=== PATIENT | male | born 1965 | race Caucasian/White ===

== ENCOUNTER 2016-06-23 05:22 | Inpatient (IN) | payer MEDICARE, OTHER ==
[2016-06-23 05:38] LABS: Glucose,Whole Blood 94 mg/dL (75-99)
[2016-06-23] MEDS ORDERED: IV VANCOMYCIN PER PHARMACY 1 EACH MISC MISCELLANE PRN (05:39)
[2016-06-23] MEDS ORDERED: LEVOFLOXACIN 750MG-D5W PMX 750 MG in DEXTROSE/WATER 1 150ML.BAG IVPB STA (05:41)
--- NOTE | 2016-06-23 05:44 | ED ---
General Adult HPI - General Chief complaint: Extremity Problem,Nontraumatic Stated complaint: bleeding foot Time Seen by Provider: 06/23/16 05:25 Source: patient, RN notes reviewed Mode of arrival: EMS Limitations: no limitations - History of Present Illness Initial comments: Patient is a pleasant 51-year-old male presenting to the emergency Department with concerns for possible foot infection. Patient first noticed this just a week ago. No history of similar symptoms previously. Patient is diabetic. Patient does have severe renal failure however has refused dialysis. Patient was previously placed on hospice for renal failure however there has been some improvement of his kidney function since that time. Patient denies any discomfort. Patient has noticed some bleeding and an older. - Related Data Home Medications Medication Instructions Recorded Confirmed Calcium Acetate [PhosLo] 2,001 mg PO TID 03/14/14 05/23/15 Thyroid,Pork [[place] Thyroid] 60 mg PO DAILY 03/14/14 05/23/15 Carvedilol [Coreg*] 25 mg PO BID 07/11/14 05/23/15 traMADol HCl [Ultram] 50 mg PO Q4H PRN 07/11/14 05/23/15 Acetaminophen Tab [Tylenol] 650 mg PO Q4H PRN 05/23/15 05/23/15 Ergocalciferol [Vitamin D2 100,000 unit PO RAHMAN 05/23/15 05/23/15 (DRISDOL)] Febuxostat [Uloric] 40 mg PO HS 05/23/15 05/23/15 Furosemide [Lasix] 80 mg PO BID 05/23/15 05/23/15 Micro-Guard 2% Powder 1 applic TOPICAL BID PRN 05/23/15 05/23/15 Na Phos,M-B/Na Phos,Di-Ba [Fleet 133 ml RECTAL ONCE PRN 05/23/15 05/23/15 Adult] Thyroid,Pork [[place] Thyroid] 15 mg PO DAILY 05/23/15 05/23/15 Previous Rx's Medication Instructions Recorded traMADol HCl [Ultram] 50 mg PO Q4H PRN #30 tab 06/02/15 Allergies Allergy/AdvReac Type Severity Reaction Status Date / Time No Known Allergies Allergy Verified 05/23/15 10:58 Review of Systems ROS Statement: Those systems with pertinent positive or pertinent negative responses have been documented in the HPI. ROS Other: All systems not noted in ROS Statement are negative. Constitutional: Denies: fever, chills Eyes: Denies: eye pain ENT: Denies: ear pain Respiratory: Denies: cough, dyspnea Cardiovascular: Denies: chest pain Endocrine: Denies: fatigue Gastrointestinal: Denies: abdominal pain Genitourinary: Denies: dysuria Musculoskeletal: Denies: back pain Skin: Reports: rash Neurological: Denies: weakness Past Medical History Past Medical History: Heart Failure, Diabetes Mellitus, Hypertension Additional Past Medical History / Comment(s): history of dialysis for CHF, chronic kidney disease stage 4. PT STATED HE IS DIET CONTROLLED DIABETIC NO MEDS BUT CHECKS BS DAILY History of Any Multi-Drug Resistant Organisms: None Reported Past Surgical History: No Surgical Hx Reported Past Anesthesia/Blood Transfusion Reactions: No Reported Reaction Past Psychological History: No Psychological Hx Reported Smoking Status: Never smoker Past Alcohol Use History: Occasional Past Drug Use History: None Reported - Past Family History Father Family Medical History: Cancer Additional Family Medical History / Comment(s): NON HODGKINS LYNPHOMA Mother Family Medical History: Cancer Additional Family Medical History / Comment(s): BREAST CANCER SURVIVOR General Exam Limitations: no limitations General appearance: alert, in no apparent distress, obese Head exam: Present: atraumatic, normocephalic Eye exam: Present: normal appearance, PERRL ENT exam: Present: normal oropharynx Neck exam: Present: normal inspection Respiratory exam: Present: normal lung sounds bilaterally Cardiovascular Exam: Present: regular rate, normal rhythm GI/Abdominal exam: Present: soft. Absent: tenderness Extremities exam: Present: other (Left heel with large necrotic stage IV ulcer with bone visible. There is foul odor. Ulcer is approximately 9 cm. There is black necrotic tissue. Refill 3 seconds bilateral distally. Decreased pedal pulses bilateral) Neurological exam: Present: alert Psychiatric exam: Present: normal affect, normal mood Skin exam: Present: rash (Necrotic foot ulcer) Course Vital Signs 06/23/16 06/23/16 05:23 06:16 Temperature 98.5 F Pulse Rate 99 87 Respiratory 20 18 Rate Blood Pressure 216/100 138/85 O2 Sat by Pulse 99 98 Oximetry - Reevaluation(s) Reevaluation #1: 06/23/16 05:44 Patient states he has seen Dr. Broderick with infectious disease previously and he' ll be placed on consult. Medical Decision Making - Medical Decision Making Patient does meet sepsis criteria. Case was discussed in detail with Dr. parson, who will admit for Dr. Lentz. Admission orders written. IV antibiotics started. Consult placed for infectious disease and nephrology - Lab Data Result diagrams: 06/23/16 05:32 Lab Results 06/23/16 06/23/16 06/23/16 Range/Units 05:32 05:32 05:32 PT 12.8 H (9.0-12.0) sec INR 1.3 (<1.1) APTT 32.5 H (22.0-30.0) sec Sodium 138 (137-145) mmol/L Potassium 4.1 (3.5-5.1) mmol/L Chloride 98 (98-107) mmol/L Carbon Dioxide 16 L (22-30) mmol/L Anion Gap 24 mmol/L BUN 119 H* (9-20) mg/dL Creatinine 6.30 H* (0.66-1.25) mg/dL Est GFR (MDRD) Af Amer 12 (>60 ml/min/1.73 sqM) Est GFR (MDRD) Non-Af 9 (>60 ml/min/1.73 sqM) Glucose 107 H (74-99) mg/dL POC Glucose (mg/dL) (75-99) mg/dL POC Glu Jewel Hole Cornerer ID Plasma Lactic Acid Lm 2.1 H (0.7-2.0) mmol/L Calcium 8.6 (8.4-10.2) mg/dL Total Bilirubin 0.8 (0.2-1.3) mg/dL AST 22 (17-59) U/L ALT 31 (21-72) U/L Alkaline Phosphatase 131 H (38-126) U/L Total Protein 7.5 (6.3-8.2) g/dL Albumin 3.4 L (3.5-5.0) g/dL 06/23/16 Range/Units 05:34 PT (9.0-12.0) sec INR (<1.1) APTT (22.0-30.0) sec Sodium (137-145) mmol/L Potassium (3.5-5.1) mmol/L Chloride (98-107) mmol/L Carbon Dioxide (22-30) mmol/L Anion Gap mmol/L BUN (9-20) mg/dL Creatinine (0.66-1.25) mg/dL Est GFR (MDRD) Af Amer (>60 ml/min/1.73 sqM) Est GFR (MDRD) Non-Af (>60 ml/min/1.73 sqM) Glucose (74-99) mg/dL POC Glucose (mg/dL) 94 (75-99) mg/dL POC Glu Jewel Hole Cornerer ID Yuridia [place] Plasma Lactic Acid Lm (0.7-2.0) mmol/L Calcium (8.4-10.2) mg/dL Total Bilirubin (0.2-1.3) mg/dL AST (17-59) U/L ALT (21-72) U/L Alkaline Phosphatase (38-126) U/L Total Protein (6.3-8.2) g/dL Albumin (3.5-5.0) g/dL - Radiology Data Radiology results: image reviewed (X-ray left foot shows severe degeneration especially of the calcaneus with demineralization and appearance of fracture) Critical Care Time Critical Care Time: Yes Total Critical Care Time: 34 Disposition Clinical Impression: Chronic renal failure, Severe sepsis, Diabetes mellitus with foot ulcer and gangrene Disposition: ADMITTED IP TO THIS HOSP Condition: Serious Referrals: Denver Lentz DO [Primary Care Provider] - 1-2 days
[2016-06-23] MEDS: SODIUM CHLORIDE 0.9% 500 ML IV SCH ×2 (05:48→06:48)
[2016-06-23] MEDS ORDERED: VANCOMYCIN 2,500 MG in SODIUM CHLORIDE 0.9% 500 ML IVPB ONE (06:00)
[2016-06-23 06:01] LABS: Calcium 8.6 mg/dL (8.4-10.2); Potassium 4.1 mmol/L (3.5-5.1); Total Bilirubin 0.8 mg/dL (0.2-1.3); Total Protein 7.5 g/dL (6.3-8.2)
[2016-06-23 06:02] LABS: INR 1.3 (<1.1); Partial Thromboplastin Time 32.5 sec (22.0-30.0); Prothrombin Time 12.8 sec (9.0-12.0)
[2016-06-23] MEDS ORDERED: NALOXONE 0.4 MG/ML 1 ML VIAL IV PRN (06:19)
[2016-06-23 06:25] LABS: Basophils # (A) 0.1 k/uL (0-0.2); Basophils % (A) 1 %; CH 30.1; CHCM 32.8; Eosinophils # (A) 0.3 k/uL (0-0.7); Eosinophils % (A) 2 %; HCT 30.3 % (39.0-53.0); HDW 3.14; HGB 9.6 gm/dL (13.0-17.5); Luc % (Auto) 1; Lymphocytes # (A) 0.7 k/uL (1.0-4.8); Lymphocytes % (A) 5 %; MCH 29.1 pg (25.0-35.0); MCHC 31.6 g/dL (31.0-37.0); MCV 92.2 fL (80.0-100.0); Mean Platelet Volume 7.1; Monocytes # (A) 0.9 k/uL (0-1.0); Monocytes % (A) 6 %; Neutrophils # (A) 12.4 k/uL (1.3-7.7); Neutrophils % (A) 85 %; RBC 3.28 m/uL (4.30-5.90); RDW 14.7 % (11.5-15.5); WBC 14.6 k/uL (3.8-10.6); WBC (Perox) 15.24
--- NOTE | 2016-06-23 06:29 | XR ---
EXAMINATION TYPE: XR foot complete LT DATE OF EXAM: 06/23/2016 6:01 AM CLINICAL HISTORY: Left foot infection. TECHNIQUE: Frontal and lateral images of the left forearm are obtained. COMPARISON: None. FINDINGS: There is evidence of comminuted displaced horizontal fracture of posterior portion of left calcaneum. There is probably open wound in the posterior aspect of this fracture in the posterior aspect of a l eft calcaneum. Underlying inflammatory process of soft tissues cannot be excluded as there are small gas bubbles in the soft tissues in the inferior aspect of left calcaneum posteriorly. Prominent plantar calcaneal spur is noted. Vascular calcifications are noted. There is generalized osteopenia. Mild to moderate arthritic changes are noted in the left foot. No definite osteomyelitis changes are suggested in the left foot including left calcaneum. There is generalized soft tissue edema around the left foot. IMPRESSION: 1. There is evidence of displaced fracture of posterior aspect of left calcaneum superiorly with prob able open wound with possible inflammatory process in the soft tissues. Small gas bubbles are noted i n the inferior posterior aspect and small abscess formation cannot be excluded. 2. No definite acute osteomyelitis changes are noted in the left foot at present. ICD 10 NO FRACTURE, INITIAL EVALUATION
[2016-06-23] MEDS ORDERED: SODIUM CHLORIDE 0.9% 1,000 ML IV SCH (06:30)
[2016-06-23 07:26] LABS: Glucose,Whole Blood 104 mg/dL (75-99)
[2016-06-23 11:29] LABS: Glucose,Whole Blood 97 mg/dL (75-99)
[2016-06-23] MEDS: AMPICILLIN-SULBACTAM 3 GM in SODIUM CHLORIDE 0.9% 100 ML IVPB SCH ×2 (13:21→20:40)
[2016-06-23] MEDS ORDERED: SODIUM BICARB 8.4% 50 ML SYR (1 MEQ/ML) IV STA (13:44)
[2016-06-23 14:07] VITALS: BMI 51.5
--- NOTE | 2016-06-23 14:25 | P.NPCON ---
History of Present Illness - Reason for Consult chronic renal failure, end stage renal disease - Chief Complaint CKD - History of Present Illness Reason for consultation: Chronic kidney disease stage V History of present illness: Patient is a 51-year-old male seen in renal consultation for chronic kidney disease. Patient has chronic kidney disease stage V secondary to nephrosclerosis. Patient has refused any forms of renal replacement therapy. He presented to the hospital with a foot ulcer. Patient noted that it was draining with the followed her he subsequently came to the hospital for further care. Foot x-ray did reveal a calcaneal fracture with a questionable abscess. He is currently receiving IV hydration. He admits to good urine output. Denies any hematuria or dysuria. He is currently maintained on IV antibiotics. No vomiting or diarrhea. Denies regular use of NSAIDs. Vital signs are stable. General: The patient appeared well nourished and normally developed. HEENT: Head exam is unremarkable. Neck is without jugular venous distension. LUNGS: Lungs are clear to auscultation and percussion. Breath sounds decreased. HEART: Rate and Rhythm are regular. First and second heart sounds normal. No murmurs, rubs or gallops. ABDOMEN: Abdominal exam reveals normal bowel sounds. Non-tender and non- distended. No evidence of peritonitis. EXTREMITITES: No clubbing, cyanosis, or edema. Wound dressing clean and dry. Past Medical History Past Medical History: Diabetes Mellitus, Eye Disorder, Hypertension Additional Past Medical History / Comment(s): chronic kidney disease stage 4- past hemodialysis for about 45 days-now refusing, NIDDM type II diet controlled , cardiomegaly, L pleural effusions with thoracentesis, bone mineral dx, anemia , hypothyroidism, L eye astigmatism, R femur fx as child with body cast. History of Any Multi-Drug Resistant Organisms: None Reported Past Surgical History: No Surgical Hx Reported Additional Past Surgical History / Comment(s): L sided thoracentesis x 3. Past Anesthesia/Blood Transfusion Reactions: No Reported Reaction Additional Past Anesthesia/Blood Transfusion Reaction / Comment(s): Pt has never had anesthesia. Past Psychological History: No Psychological Hx Reported Additional Psychological History / Comment(s): Pt resides alone. He can stand and pivot to wheelchair. He lives in [facility]. He uses the bus to get places. Smoking Status: Never smoker Past Alcohol Use History: Occasional Past Drug Use History: None Reported - Past Family History Father Family Medical History: Cancer Additional Family Medical History / Comment(s): NON HODGKINS LYNPHOMA. Father at the age of 50 from chemo treatment to get ready for bone marrow transplant. Mother Family Medical History: Cancer Additional Family Medical History / Comment(s): BREAST CANCER SURVIVOR. Medications and Allergies Home Medications Medication Instructions Recorded Confirmed Type Calcium Acetate [PhosLo] 667 mg PO TID 03/14/14 06/23/16 History Thyroid,Pork [[place] Thyroid] 60 mg PO DAILY 03/14/14 06/23/16 History Carvedilol [Coreg*] 25 mg PO BID 07/11/14 06/23/16 History Febuxostat [Uloric] 40 mg PO HS 05/23/15 06/23/16 History Furosemide [Lasix] 80 mg PO BID 05/23/15 06/23/16 History Thyroid,Pork [[place] Thyroid] 15 mg PO DAILY 05/23/15 06/23/16 History Metolazone [Zaroxolyn] 5 mg PO Q48H 06/23/16 06/23/16 History amLODIPine BESYLATE [Norvasc] 5 mg PO DAILY 06/23/16 06/23/16 History Allergies Allergy/AdvReac Type Severity Reaction Status Date / Time No Known Allergies Allergy Verified 06/23/16 07:06 Physical Exam Vitals: Vital Signs Temp Pulse Pulse Resp BP BP Pulse Ox 06/23/16 07:33 99.0 F 85 14 142/80 95 06/23/16 07:02 98.6 F 85 18 135/85 97 Intake and Output 06/22/16 06/23/16 06/23/16 22:59 06:59 14:59 Other: Weight 172.365 kg Patient Weight 06/24/16 06:59 Weight 172.365 kg Results - Lab Results Most recent lab results Calcium 8.6 mg/dL (8.4-10.2) 06/23/16 05:32 06/23/16 06:15 06/23/16 05:32 Assessment and Plan Plan: Assessment: #1. Chronic kidney disease stage V secondary to nephrosclerosis. #2. Foot ulceration. #3. Metabolic acidosis secondary to chronic kidney disease. #4. Anemia. Rule out iron deficiency. #5. Hypertension with chronic kidney disease. Controlled. Plan: I will decrease the rate of fluids to 75 mL an hour. 2 A of sodium bicarbonate IV push. Start oral sodium bicarbonate supplementation. Check a phosphorus level. Antibiotics per infectious disease recommendations. Check iron studies. Avoid nephrotoxic agents and hypotensive episodes. I again discussed the options for renal replacement therapy with the patient. He still wishes for no renal replacement therapy at this time. Thank you for the consultation. I will continue to follow the patient with you during his hospital stay.
[2016-06-23 14:33] LABS: Appearance,Urine Clear (Clear); Bilirubin,Urine Negative (Negative); Glucose,Urine (UA) Trace (Negative); Ketones,Urine Trace (Negative); Leukocyte Esterase,Urine Negative (Negative); Mucus,Urine Rare /hpf; Nitrite,Urine Negative (Negative); PH, Urine 5.5 (5.0-8.0); Particle Count 5004; Protein,Urine 2+ (Negative); RBC,Urine 2 /hpf (0-5); Specific Gravity,Urine 1.008 (1.001-1.035); Squamous Epithelial Cell,Urine 1 /hpf (0-4); UA Billing (MACRO vs. MICRO) MICRO; Urobilinogen,Urine <2.0 mg/dL (<2.0); WBC,Urine 3 /hpf (0-5)
[2016-06-23] MEDS: SODIUM CHLORIDE 0.9% 1,000 ML IV SCH (14:56)
[2016-06-23] MEDS ORDERED: amLODIPine 5 MG TAB PO SCH (15:45)
[2016-06-23] MEDS ORDERED: THYROID PORK 15 MG PO SCH (15:45)
[2016-06-23 17:02] LABS: Glucose,Whole Blood 140 mg/dL (75-99)
[2016-06-23] MEDS: THYROID, PORK 30 MG TAB PO SCH (17:59)
[2016-06-23] MEDS: CALCIUM ACETATE 667 MG CAP PO SCH ×2 (17:59→22:24)
[2016-06-23] MEDS: CARVEDILOL 12.5 MG TAB PO SCH (17:59)
--- NOTE | 2016-06-23 20:07 | HP ---
DATE OF ADMISSION: 06/23/2016 PRESENTING COMPLAINT: Heel abscess. HISTORY OF PRESENTING COMPLAINT: This is a 51-year-old patient of Dr. Lentz whose chronic stable medical conditions include congestive heart failure with diastolic dysfunction, hypertensive heart disease, ichthyosis, chronic kidney disease, stage IV; does not want renal replacement therapy; secondary hyperparathyroidism, diet-controlled diabetic. Patient says that about a week there was a ( ) abscess that burst in his left heel and has been draining. That is when patient decided to come in. Patient has decreased sensation in his lower extremities. REVIEW OF SYSTEMS: CONSTITUTIONAL: Tired. HEENT: None. RESPIRATORY: None. CARDIOVASCULAR: None. GASTROINTESTINAL: None. GENITOURINARY: None. MUSCULOSKELETAL: A reported calcaneal fracture in the ER. DERMATOLOGICAL: As above. LYMPHATICS: None. PSYCHIATRY: None. NEUROLOGICAL: Decreased sensation in the legs. PAST HISTORY: 1. Congestive heart failure with diastolic dysfunction. 2. Hypertensive heart disease. 3. Ichthyosis. 4. Chronic kidney disease, stage IV. 5. Secondary hyperparathyroidism. Patient did take hemodialysis for about 45 days in the past. PAST SURGICAL HISTORY: Left-sided thoracentesis. SOCIAL HISTORY: Lives alone. He can pivot to a wheelchair. Lives at [facility]. No smoking. alcohol occasionally. FAMILY HISTORY: Non-Hodgkin's lymphoma. HOME MEDICATIONS: 1. Norvasc 5 mg p.o. daily. 2. Zaroxolyn 5 mg p.o. q.48 hours. 3. Uloric 40 mg p.o. at bedtime. 4. PhosLo 660 mg p.o. t.i.d. 5. [place] Thyroid 60 mg p.o. daily. 6. Lasix 80 mg b.i.d. 7. Ultram 50 mg p.o. q.4 p.r.n. 8. [place] Thyroid 15 mg p.o. daily. 9. Coreg 25 mg p.o. b.i.d. ALLERGIES: NONE. On examination, temperature 98.5, pulse 99, respiration 20, blood pressure 216/100, repeat 138/85. Pulse ox 98% on room air. GENERAL APPEARANCE: Morbidly obese; BMI of 51.5. Lying in bed, not in distress. EYES: Pupils equal. Conjunctivae normal. HEENT: External appearance of nose and ears normal. Oral cavity normal. NECK: JVD not raised. Mass with palpable. RESPIRATORY: Effort normal. Lungs are clear. CARDIOVASCULAR: First and second sounds normal. Non-pitting edema. ABDOMEN: Distended, soft. Liver and spleen not palpable. LYMPHATIC: No lymph node palpable in neck or axillae. PSYCHIATRY: Alert and oriented x3. Mood and affect normal. NEUROLOGICAL: Decreased sensation in the feet. MUSCULOSKELETAL: Patient has an abscess on the left heel. INVESTIGATIONS: White count 14.6, hemoglobin 9.6. Potassium 4.1. BUN 109, creatinine 6.30. Accu-Cheks 107, 104. X-ray shows a possible calcaneal fracture. ASSESSMENT: 1. Abscess of the left heel secondary to decreased sensation from peripheral neuropathy. 2. Possible left calcaneal fracture; this could well be osteomyelitis. 3. Stage V kidney disease secondary to nephrosclerosis. 4. Morbid obesity; body mass index of 51.5. 5. Chronic congestive heart failure from diastolic dysfunction. 6. Hypertensive heart disease. 7. Secondary hyperparathyroidism. PLAN: Consultations to ID and Vascular Surgery have been done. Home medication are resumed. Will hold off patient's diuretics for right now. Given the swelling in the lower extremity, will increase the dose of beta michaela and discontinue Norvasc, as this may be causing further swelling in the lower extremity. Patient also will be given antibiotics, bicarb. Overall prognosis is guarded.
[2016-06-23] MEDS: ALLOPURINOL 100 MG TAB PO SCH (20:40)
[2016-06-23] MEDS: SODIUM BICARBONATE TAB 650 MG TAB PO SCH (20:41)
--- NOTE | 2016-06-23 20:43 | CONS ---
DATE OF CONSULTATION: 06/23/2016 REASON FOR CONSULTATION: Left heel wound and ulcer. HISTORY OF PRESENT ILLNESS: The patient is a 51-year-old morbidly obese male with a past medical history significant for renal insufficiency for which the patient was on dialysis for a while. However, the patient subsequently refused any further dialysis. He also has history of diabetes mellitus, presenting to the [facility] ER with chief complaints of wound to his left heel area. The patient says has been going on for about a week. He noticed it when he took his socks off. He noticed a wound in that area that was gradually worse. Patient complaining of foul smelling to the area. The patient did have neuropathy. Did not have significant pain to it. The patient denies any high-grade fever, rigors or chills. Subsequently, the patient has been evaluated by the ER physician. The patient noticed to have a foul smelling wound to the left heel area. He did have x-rays of the heel which did show evidence of the posterior aspect of the left calcaneal superiorly with palpable open wound, possible for osteo . The patient did receive a dose of vancomycin. He was given, started on Levaquin. I was asked to see the patient for further recommendation regarding antibiotic therapy. REVIEW OF SYSTEMS: CONSTITUTIONAL: Positive for weakness. Denies any high grade fever. EYES: No complaint. ENT: No complaint. RESPIRATORY: No complaint. CARDIOVASCULAR: No complaint. GENITOURINARY: No complaint. GASTROINTESTINAL: No complaint. MUSCULOSKELETAL: As per HPI. INTEGUMENTARY: As per HPI. PSYCHOLOGIC: No complaint. ENDOCRINE: No complaint. NEUROLOGICAL: No complaint. PAST MEDICAL HISTORY: Diabetes mellitus, hypertension, renal insufficiency. PAST MEDICAL HISTORY: Left-sided thoracocentesis times three. No other major surgery. SOCIAL HISTORY: Denies smoking, drinking, or drug use. FAMILY HISTORY: Father with history of non-Hodgkin lymphoma. Mother with history of breast cancer. Allergies: No known drug allergies. MEDICATIONS: Currently include the patient is on: 1. Tylenol. 2. Zyloprim. 3. PhosLo. 4. Coreg. 5. Narcan. 6. Ultram. On examination, blood pressure is 142/80 with a pulse of 85, temperature 99. He is 95% on room air. General description is a middle-age male lying in bed in no distress. HEENT pallor, no scleral icterus. Oral mucous membrane is dry. NECK: Trachea is central. No thyromegaly. LUNGS: Unlabored breathing. Clear to auscultation anteriorly. HEART: S1, S2 regular rate and rhythm. ABDOMEN: Soft. No tenderness. EXTREMITIES: No edema of the feet. Examination of the left heel did have a significantly foul smelling necrotic wound with some foul smelling drainage. Minimal surrounding erythema. Examination of skin: No rash or mass palpable. NEUROLOGICAL: The patient is awake, alert, oriented x3. Mood and affect normal. LABS: Hemoglobin 9.6, white count of 14.6 with a BUN of 119, creatinine 6.30. Liver enzymes are normal. X-ray report as mentioned above. DIAGNOSTIC IMPRESSION AND PLAN: Patient with left heel wound with likely underlying osteomyelitis in a patient who did have a history of diabetes, more likely polymicrobial infection including a gram positive skin timo as well as gram-negative pathogen. PLAN: 1. Discontinue the vancomycin as risk of nephrotoxicity. 2. Discontinue Levaquin. 3. Start the patient on Teflaro. 4. The patient needs to have a vascular surgery evaluation for surgical debridement of the wound and deep cultures with both aerobic and anaerobic. 5. Will follow up on the clinical condition and cultures to further adjust the medication if needed. Thank you for this consultation. We will follow this patient along with you. TOVA
[2016-06-23 21:21] LABS: Glucose,Whole Blood 156 mg/dL (75-99)
[2016-06-24] MEDS: SODIUM CHLORIDE 0.9% 1,000 ML IV SCH ×2 (04:06→11:31)
[2016-06-24] MEDS: THYROID, PORK 30 MG TAB PO SCH (05:45)
[2016-06-24 07:19] LABS: Glucose,Whole Blood 116 mg/dL (75-99)
[2016-06-24] MEDS: AMPICILLIN-SULBACTAM 3 GM in SODIUM CHLORIDE 0.9% 100 ML IVPB SCH ×2 (07:54→20:55)
[2016-06-24] MEDS: CARVEDILOL 12.5 MG TAB PO SCH ×2 (07:54→16:20)
[2016-06-24] MEDS: CALCIUM ACETATE 667 MG CAP PO SCH ×3 (07:54→20:59)
[2016-06-24] MEDS: SODIUM BICARBONATE TAB 650 MG TAB PO SCH ×2 (07:55→20:57)
[2016-06-24] MEDS ORDERED: LEVOFLOXACIN 750MG-D5W PMX 750 MG in DEXTROSE/WATER 1 150ML.BAG IVPB SCH (09:00)
--- NOTE | 2016-06-24 10:57 | P.PN ---
Subjective Patient is seen in follow-up for chronic kidney disease stage V. Patient is currently being treated with IV antibiotics for a left heel wound. Admits to good urine output. Appetite is good. No vomiting or diarrhea. Denies any chest pain or shortness of breath. Vital signs are stable. General: The patient appeared well nourished and normally developed. HEENT: Head exam is unremarkable. Neck is without jugular venous distension. LUNGS: Lungs are clear to auscultation and percussion. Breath sounds decreased. HEART: Rate and Rhythm are regular. First and second heart sounds normal. No murmurs, rubs or gallops. ABDOMEN: Abdominal exam reveals normal bowel sounds. Non-tender and non- distended. No evidence of peritonitis. EXTREMITITES: No clubbing, cyanosis, or edema. Objective - Vital Signs Vital signs: Vital Signs Temp 97.5 F L 06/24/16 07:00 Pulse 75 06/24/16 07:00 Resp 18 06/24/16 07:00 BP 155/93 06/24/16 07:00 Pulse Ox 97 06/24/16 07:00 Intake & Output 06/23/16 06/24/16 06/24/16 18:59 06:59 18:59 Output Total 350 1400 Balance -350 -1400 Weight 172.365 kg Output: Urine 350 1400 - Labs CBC & Chem 7: 06/23/16 06:15 06/23/16 05:32 Labs: Abnormal Lab Results - Last 24 Hours (Table) 06/23/16 06/23/16 06/23/16 Range/Units 14:10 17:00 21:20 POC Glucose (mg/dL) 140 H 156 H (75-99) mg/dL Urine Protein 2+ H (Negative) Urine Glucose (UA) Trace H (Negative) Urine Ketones Trace H (Negative) Urine Blood Small H (Negative) Urine Mucus Rare H (None) /hpf 06/24/16 Range/Units 07:12 POC Glucose (mg/dL) 116 H (75-99) mg/dL Urine Protein (Negative) Urine Glucose (UA) (Negative) Urine Ketones (Negative) Urine Blood (Negative) Urine Mucus (None) /hpf Microbiology - Last 24 Hours (Table) 06/23/16 14:10 Urine Culture - Preliminary Urine,Clean Catch Assessment and Plan Plan: Assessment: #1. Chronic kidney disease stage V secondary to nephrosclerosis. #2. Foot ulceration. Wound culture positive for gram-negative as well as staph aureus. #3. Metabolic acidosis secondary to chronic kidney disease. #4. Anemia. Rule out iron deficiency. #5. Hypertension with chronic kidney disease. Controlled. #6. Hyperphosphatemia secondary to chronic kidney disease. Plan: However further decrease IV fluids to be run at 50 mL an hour. Maintain oral sodium bicarbonate supplementation. Check a phosphorus level. Antibiotics per infectious disease recommendations. Check iron studies. Avoid nephrotoxic agents and hypotensive episodes. Maintain PhosLo with meals. I again discussed the options for renal replacement therapy with the patient. He still wishes for no renal replacement therapy at this time.
[2016-06-24 12:08] LABS: Glucose,Whole Blood 132 mg/dL (75-99)
[2016-06-24] MEDS ORDERED: VANCOMYCIN 2,000 MG in SODIUM CHLORIDE 0.9% 500 ML IVPB ONE (13:00)
[2016-06-24 16:39] LABS: Glucose,Whole Blood 162 mg/dL (75-99)
--- NOTE | 2016-06-24 20:45 | PN ---
DATE OF SERVICE: 06/24/2016 REASON FOR FOLLOWUP: Left heel wound infection. INTERVAL HISTORY: The patient is afebrile. Denies any worsening pain to the left heel area. The patient denies having any chest pain or shortness of breath or cough. No abdominal pain. No diarrhea. Awaiting vascular surgery evaluation. On examination, blood pressure 149/91 with a pulse of 72, temperature 98.4. He is 97% on room air. General description is a middle-age male up in the bed in no distress. RESPIRATORY SYSTEM: Unlabored breathing. Clear to auscultation anteriorly. HEART: S1, S2. Regular rate and rhythm. ABDOMEN: Soft. No tenderness. Left heel wound with foul-smelling drainage from a necrotic area. LABS: Wound culture currently showing Staph aureus and a gram-negative bacilli. DIAGNOSTIC IMPRESSION AND PLAN: Patient with extensive left heel wound that will need surgical debridement and deep cultures. Currently the patient will continue on the Unasyn. Adjustment will be made further on the basis of the culture report. Will discontinue vanco to prevent any nephrotoxicity. Continue supportive care.
--- NOTE | 2016-06-24 20:55 | PN ---
DATE OF SERVICE: 06/24/2016 PRESENTING COMPLAINT: Left foot abscess. INTERVAL HISTORY: This is a patient who presented with left foot abscess, rather foul smelling. Cultures are growing gram-negative bacilli and gram-positive cocci. Patient is on Unasyn per Infectious Disease. Awaiting input from Vascular Surgery. Patient is otherwise lying in bed. Review of systems done for constitutional, cardiovascular, GI, pulmonary; relevant findings as above. Current medications are reviewed and include IV Unasyn. On examination, temperature 98.4, pulse 82, respirations 20, blood pressure 149/91, pulse ox 91% on room air. GENERAL APPEARANCE: Lying in bed, not in distress. EYES: Pupils equal. Conjunctivae normal. NECK: JVD not raised. Mass not palpable. RESPIRATORY: Effort normal. Lungs are clear. CARDIOVASCULAR: First and second sounds. Nonpitting edema. ABDOMEN: Soft and distended. Liver and spleen not palpable. PSYCHIATRY: Alert and oriented x3. Mood and affect normal. Left heel with dressing on the wound. INVESTIGATIONS: Accu-Cheks are noted. Protein 2+. ASSESSMENT: 1. Acute left heel abscess secondary to decreased sensation from peripheral neuropathy growing gram-negative bacilli and gram-positive cocci. 2. Possible left heel calcaneal fracture. This could well be osteomyelitis. 3. Stage V kidney disease secondary to nephrosclerosis. 4. Morbid obesity, body mass index of 51.5. 5. Chronic congestive heart failure from diastolic dysfunction. 6. Hypertensive heart disease. 7. Secondary hyperparathyroidism. 8. Metabolic acidosis from renal failure. PLAN: Continue current medication and treatment plan. Await input from Orthopedics and Vascular Surgery. Patient will definitely need wound debridement. Continue current medication and treatment plan and follow.
[2016-06-24] MEDS: ALLOPURINOL 100 MG TAB PO SCH (20:57)
[2016-06-24 21:08] LABS: Glucose,Whole Blood 124 mg/dL (75-99)
[2016-06-25] MEDS: THYROID, PORK 30 MG TAB PO SCH (05:46)
[2016-06-25] MEDS: SODIUM CHLORIDE 0.9% 1,000 ML IV SCH ×2 (05:47→18:02)
[2016-06-25 07:28] LABS: Glucose,Whole Blood 109 mg/dL (75-99)
[2016-06-25] MEDS: ACETAMINOPHEN TAB 325 MG TAB PO PRN (08:00)
[2016-06-25] MEDS: AMPICILLIN-SULBACTAM 3 GM in SODIUM CHLORIDE 0.9% 100 ML IVPB SCH (08:02)
[2016-06-25] MEDS: CARVEDILOL 12.5 MG TAB PO SCH ×2 (08:05→18:01)
[2016-06-25] MEDS: SODIUM BICARBONATE TAB 650 MG TAB PO SCH ×2 (08:06→20:23)
[2016-06-25] MEDS: CALCIUM ACETATE 667 MG CAP PO SCH ×3 (08:06→22:22)
--- NOTE | 2016-06-25 08:13 | P.GSCN ---
History of Present Illness History of present illness: 51-year-old male, history of obesity, history of chronic or failure, patient has been admitted with necrotic wound left heel with exposed ankle joint bones are exposed tender calcaneus exposed and a calcaneus is exposed according to patient he has this for the last 10 days patient was seen by infectious disease started him on IV antibiotic the necrotic heel is foul odor smell and this foot is not salvageable because of the exposed bones and the area of skin skin gangrene and necrotic tissue will need major amputation I have discussed with him he will need below-knee amputation he agrees Medical history history of chronic renal failure patient refusing dialysis, history of diabetes, history of hypertension, On examination neck examination neck is supple no bruit appreciated Chest first and second sound normal good entry both lungs Abdomen soft nontender patient has a superobesity Vascular examination femorals are palpable dorsal pedis is palpable there is a foot large wound on the heel and plantar aspect of the foot effect bones are exposed with necrotic tissue Plan is left below-knee of dictation patient understand risk and complication bleeding infection flap necrosis has been discussed patient understands thank you very much Past Medical History Past Medical History: Diabetes Mellitus, Eye Disorder, Hypertension Additional Past Medical History / Comment(s): chronic kidney disease stage 4- past hemodialysis for about 45 days-now refusing, NIDDM type II diet controlled , cardiomegaly, L pleural effusions with thoracentesis, bone mineral dx, anemia , hypothyroidism, L eye astigmatism, R femur fx as child with body cast. History of Any Multi-Drug Resistant Organisms: None Reported Past Surgical History: No Surgical Hx Reported Additional Past Surgical History / Comment(s): L sided thoracentesis x 3. Past Anesthesia/Blood Transfusion Reactions: No Reported Reaction Additional Past Anesthesia/Blood Transfusion Reaction / Comm: Pt has never had anesthesia. Past Psychological History: No Psychological Hx Reported Additional Psychological History / Comment(s): Pt resides alone. He can stand and pivot to wheelchair. He lives in [facility]. He uses the bus to get places. Smoking Status: Never smoker Past Alcohol Use History: Occasional Past Drug Use History: None Reported - Past Family History Father Family Medical History: Cancer Additional Family Medical History / Comment(s): NON HODGKINS LYNPHOMA. Father at the age of 50 from chemo treatment to get ready for bone marrow transplant. Mother Family Medical History: Cancer Additional Family Medical History / Comment(s): BREAST CANCER SURVIVOR. Medications and Allergies Home Medications Medication Instructions Recorded Confirmed Type Calcium Acetate [PhosLo] 667 mg PO TID 03/14/14 06/23/16 History Thyroid,Pork [[place] Thyroid] 60 mg PO DAILY 03/14/14 06/23/16 History Carvedilol [Coreg*] 25 mg PO BID 07/11/14 06/23/16 History Febuxostat [Uloric] 40 mg PO HS 05/23/15 06/23/16 History Furosemide [Lasix] 80 mg PO BID 05/23/15 06/23/16 History Thyroid,Pork [[place] Thyroid] 15 mg PO DAILY 05/23/15 06/23/16 History Metolazone [Zaroxolyn] 5 mg PO Q48H 06/23/16 06/23/16 History amLODIPine BESYLATE [Norvasc] 5 mg PO DAILY 06/23/16 06/23/16 History Allergies Allergy/AdvReac Type Severity Reaction Status Date / Time No Known Allergies Allergy Verified 06/23/16 07:06 Surgical - Exam Vital Signs Temp Pulse Resp BP Pulse Ox 98.5 F 99 20 216/100 99 06/23/16 05:23 06/23/16 05:23 06/23/16 05:23 06/23/16 05:23 06/23/16 05:23 Results - Labs 06/23/16 06:15 06/23/16 05:32 Abnormal Lab Results - Last 24 Hours (Table) 06/24/16 06/24/16 06/24/16 Range/Units 11:49 16:34 21:07 POC Glucose (mg/dL) 132 H 162 H 124 H (75-99) mg/dL 06/25/16 Range/Units 07:19 POC Glucose (mg/dL) 109 H (75-99) mg/dL Microbiology - Last 24 Hours (Table) 06/23/16 14:10 Urine Culture - Final Urine,Clean Catch
--- NOTE | 2016-06-25 08:32 | P.PN ---
Subjective Patient is seen in follow-up for chronic kidney disease stage V. Patient is currently being treated with IV antibiotics for a left heel wound. Admits to good urine output. Appetite is good. No vomiting or diarrhea. Denies any chest pain or shortness of breath. Vital signs are stable. General: The patient appeared well nourished and normally developed. HEENT: Head exam is unremarkable. Neck is without jugular venous distension. LUNGS: Lungs are clear to auscultation and percussion. Breath sounds decreased. HEART: Rate and Rhythm are regular. First and second heart sounds normal. No murmurs, rubs or gallops. ABDOMEN: Abdominal exam reveals normal bowel sounds. Non-tender and non- distended. No evidence of peritonitis. EXTREMITITES: No clubbing, cyanosis, or edema. Objective - Vital Signs Vital signs: Vital Signs Temp 100.3 F H 06/25/16 07:00 Pulse 75 06/25/16 07:00 Resp 18 06/25/16 07:00 BP 168/98 06/25/16 07:00 Pulse Ox 96 06/25/16 07:00 Intake & Output 06/24/16 06/25/16 06/25/16 18:59 06:59 18:59 Intake Total 1390 Output Total 1275 Balance 1390 -1275 Intake: IV 1150 Ampicillin-Sulbactam 3 gm 100 In Sodium Chloride 0.9% 100 ml @ 100 mls/hr IVPB Q12HR [facility] Rx#:[id number] Sodium Chloride 0.9% 1, 550 000 ml @ 50 mls/hr IV . Q20H [facility] Rx#:[id number] Vancomycin 2,000 mg In 500 Sodium Chloride 0.9% 500 ml @ 167 mls/hr IVPB ONCE ONE Rx#:[id number] Oral 240 Output: Urine 1275 Other: # Voids 1 - Labs CBC & Chem 7: 06/23/16 06:15 06/23/16 05:32 Labs: Abnormal Lab Results - Last 24 Hours (Table) 06/24/16 06/24/16 06/24/16 Range/Units 11:49 16:34 21:07 POC Glucose (mg/dL) 132 H 162 H 124 H (75-99) mg/dL 06/25/16 Range/Units 07:19 POC Glucose (mg/dL) 109 H (75-99) mg/dL Microbiology - Last 24 Hours (Table) 06/23/16 14:10 Urine Culture - Final Urine,Clean Catch Assessment and Plan Plan: Assessment: #1. Chronic kidney disease stage V secondary to nephrosclerosis. #2. Foot ulceration. Wound culture positive for gram-negative as well as staph aureus. #3. Metabolic acidosis secondary to chronic kidney disease. #4. Anemia. Rule out iron deficiency. #5. Hypertension with chronic kidney disease. Controlled. #6. Hyperphosphatemia secondary to chronic kidney disease. Plan: Maintain IV fluids to be run at 50 mL an hour. Maintain oral sodium bicarbonate supplementation. Antibiotics per infectious disease recommendations. Check iron studies. Avoid nephrotoxic agents and hypotensive episodes. Maintain PhosLo with meals. I again discussed the options for renal replacement therapy with the patient. He still wishes for no renal replacement therapy at this time. Case discussed with vascular surgery. Plan for below the knee amputation this afternoon. Labs from this morning are pending at this time.
[2016-06-25 10:02] LABS: Basophils # (A) 0.1 k/uL (0-0.2); Basophils % (A) 1 %; CH 29.8; CHCM 31.9; Eosinophils # (A) 0.5 k/uL (0-0.7); Eosinophils % (A) 6 %; HCT 26.6 % (39.0-53.0); HDW 3.07; HGB 8.2 gm/dL (13.0-17.5); Hypochromasia Slight; Luc # (Auto) 0.09; Luc % (Auto) 1; Lymphocytes # (A) 0.7 k/uL (1.0-4.8); Lymphocytes % (A) 8 %; MCHC 30.9 g/dL (31.0-37.0); MCV 93.9 fL (80.0-100.0); Mean Platelet Volume 7.3; Monocytes # (A) 0.6 k/uL (0-1.0); Monocytes % (A) 7 %; Neutrophils # (A) 6.7 k/uL (1.3-7.7); Neutrophils % (A) 77 %; RBC 2.83 m/uL (4.30-5.90); RDW 14.6 % (11.5-15.5); WBC 8.6 k/uL (3.8-10.6); WBC (Perox) 9.63
[2016-06-25 10:07] LABS: INR 1.3 (<1.1); Partial Thromboplastin Time 30.3 sec (22.0-30.0)
[2016-06-25 10:16] LABS: Calcium 7.8 mg/dL (8.4-10.2); Potassium 3.7 mmol/L (3.5-5.1)
[2016-06-25 12:02] LABS: Glucose,Whole Blood 113 mg/dL (75-99)
[2016-06-25] MEDS ORDERED: IV FLUID CONTINUATION 1,000 ML IV ONE (13:02)
[2016-06-25] MEDS ORDERED: MIDAZOLAM 2 MG/2 ML VIAL IVP ONE (13:28)
[2016-06-25] MEDS ORDERED: METOCLOPRAMIDE 5 MG/ML 2 ML VIAL IVP ONE (13:28)
[2016-06-25] MEDS: CEFTAROLINE FOSAMIL 300 MG in SODIUM CHLORIDE 0.9% 250 ML IVPB SCH ×2 (13:32→21:05)
[2016-06-25] MEDS ORDERED: PROPOFOL 10 MG/ML 20 ML VIAL IV ONE (14:04)
[2016-06-25] MEDS ORDERED: LIDOCAINE 1% INJ 10MG/ML (20 ML MDV) ONE (14:04)
[2016-06-25] MEDS ORDERED: MIDAZOLAM 2 MG/2 ML VIAL ONE (14:04)
[2016-06-25] MEDS ORDERED: fentaNYL (PF) 50 MCG/ML 2 ML AMP ONE (14:04)
[2016-06-25] MEDS ORDERED: KETOROLAC 30 MG/ML 1 ML VIAL IVP PRN (14:48)
[2016-06-25] MEDS ORDERED: NALOXONE 0.4 MG/ML 1 ML VIAL IV PRN (14:48)
[2016-06-25] MEDS ORDERED: diphenhydrAMINE 50 MG/ML 1 ML VIAL IVP PRN (14:48)
[2016-06-25] MEDS ORDERED: NALBUPHINE 10 MG/ML AMPUL IV PRN (14:48)
[2016-06-25 15:37] LABS: % Iron Saturation 14.6 % (20-50)
--- NOTE | 2016-06-25 17:41 | PN ---
DATE OF SERVICE: 06/25/2016 PRESENTING COMPLAINT: Left foot abscess. INTERVAL HISTORY: This patient presented with left foot abscess. Strongly suspect osteomyelitis. Seen by vascular surgeon Dr. Dev plummer for amputation of the foot. The patient lying in bed. Review of systems done for constitutional, cardiovascular, gastroenterology, pulmonary; relevant findings as above. Current medications are reviewed that include IV Ceftaroline. On examination: T-max 100.3, pulse 75, respirations 18, blood pressure 168/98, pulse 96% on room air. GENERAL APPEARANCE: Lying in bed, comfortable. EYES: Pupils equal. Conjunctivae normal. NECK: JVD not raised. Mass not palpable. RESPIRATORY: Effort normal. Lungs are clear. CARDIOVASCULAR: First and second sounds normal. No edema, nonpitting. ABDOMEN: Soft, nontender. Liver and spleen not palpable. PSYCHIATRY: Alert and oriented times three. Mood and affect normal. Left heel wound with abscess. INVESTIGATIONS: White count 8.6, hemoglobin 8.2, potassium 3.7. BUN 92, creatinine 5.08, wound cultures growing methicillin-resistant Staphylococcus aureus and Proteus mirabilis. ASSESSMENT: 1. Acute left heel abscess, secondary to neuropathy, possibly underlying osteomyelitis growing Methicillin-resistant Staph aureus and Proteus mirabilis for possible left foot amputation. 2. Stage V kidney disease secondary to nephrosclerosis. 3. Morbid obesity; body mass index of 51.5. 4. Chronic congestive heart failure diastolic dysfunction. 5. Hypertensive heart disease. 6. Secondary hyperparathyroidism. 7. Metabolic acidosis, from renal failure. PLAN: Care was discussed with the patient. Prognosis is guarded. Await surgery today.
[2016-06-25 18:14] LABS: Glucose,Whole Blood 125 mg/dL (75-99)
[2016-06-25] MEDS: ALLOPURINOL 100 MG TAB PO SCH (20:22)
--- NOTE | 2016-06-25 20:26 | XR ---
EXAMINATION TYPE: XR chest 1V portable DATE OF EXAM: 06/25/2016 8:18 PM COMPARISON: 05/26/2015 HISTORY: Rehabilitation placement TECHNIQUE: Single frontal view of the chest is obtained. FINDINGS: There is blunting of right costophrenic angle. There is probably infiltrate in the right l ower lobe. Heart size appears normal. There is no gross heart failure. Left lung is clear of consolid ation. IMPRESSION: No heart failure. There is moderate right pleural effusion that is probably improved com pared to last exam.
[2016-06-25 21:45] LABS: Glucose,Whole Blood 157 mg/dL (75-99)
[2016-06-26] MEDS: SODIUM CHLORIDE 0.9% 1,000 ML IV SCH (05:59)
[2016-06-26] MEDS: THYROID, PORK 30 MG TAB PO SCH (05:59)
[2016-06-26 07:47] LABS: Glucose,Whole Blood 161 mg/dL (75-99)
--- NOTE | 2016-06-26 08:36 | PN ---
DATE OF SERVICE: 06/25/2016 Reason for follow-up is left heel osteomyelitis, polymicrobial. INTERVAL HISTORY: The patient is seen on rounds this afternoon. The patient has been evaluated by Vascular Surgery recommending a left below the knee amputation because of extensive wound. The patient's pain to the left foot is currently controlled. Patient denies having any chest pain or shortness of breath or cough. No abdominal pain and no diarrhea. On examination, blood pressure 134/71 with pulse 63. Temperature 97.5. He is 98% on room air. General description is a middle-aged male lying in bed in no distress. RESPIRATORY SYSTEM: Unlabored breathing. Clear to auscultation anteriorly. HEART: S1, S2. Regular rate and rhythm. ABDOMEN: Soft. No tenderness. Left heel wound is currently dressed up with minimal drainage and dressing. LABS: Hemoglobin is 8.1, white count 8.6 with a BUN of 92 and creatinine 5.08. Wound culture with Proteus mirabilis and MRSA. DIAGNOSTIC IMPRESSION AND PLAN: Patient with left heel diabetic foot infection with Proteus and methicillin-resistant Staphylococcus aureus. Patient with renal insufficiency and high risk of nephrotoxicity. Antibiotics adjusted to Teflaro 300 IV q.12. Discontinue the Unasyn. Continue supportive care.
[2016-06-26 08:48] LABS: Basophils # (A) 0.1 k/uL (0-0.2); Basophils % (A) 1 %; CH 29.2; CHCM 30.6; Eosinophils # (A) 0.5 k/uL (0-0.7); Eosinophils % (A) 5 %; HCT 27.4 % (39.0-53.0); HDW 3.07; HGB 8.3 gm/dL (13.0-17.5); Hypochromasia Marked; Luc # (Auto) 0.16; Luc % (Auto) 2; Lymphocytes # (A) 0.6 k/uL (1.0-4.8); Lymphocytes % (A) 7 %; MCH 29.2 pg (25.0-35.0); MCHC 30.4 g/dL (31.0-37.0); MCV 95.9 fL (80.0-100.0); Mean Platelet Volume 6.9; Monocytes # (A) 0.5 k/uL (0-1.0); Monocytes % (A) 6 %; Neutrophils # (A) 6.8 k/uL (1.3-7.7); Neutrophils % (A) 79 %; RBC 2.86 m/uL (4.30-5.90); RDW 14.6 % (11.5-15.5); WBC 8.6 k/uL (3.8-10.6); WBC (Perox) 9.32
[2016-06-26 09:11] LABS: Calcium 7.7 mg/dL (8.4-10.2); Potassium 4.5 mmol/L (3.5-5.1)
--- NOTE | 2016-06-26 09:13 | P.PN ---
Subjective Doing well. feels better. Objective - Vital Signs Vital signs: Vital Signs Temp 97.5 F L 06/25/16 21:49 Pulse 63 06/25/16 21:49 Resp 16 06/25/16 21:49 BP 134/71 06/25/16 21:49 Pulse Ox 98 06/25/16 21:49 Intake & Output 06/25/16 06/26/16 06/26/16 18:59 06:59 18:59 Intake Total 1550 Output Total 700 800 Balance 850 -800 Intake: IV 1550 Ampicillin-Sulbactam 3 gm 100 In Sodium Chloride 0.9% 100 ml @ 100 mls/hr IVPB Q12HR [facility] Rx#:[id number] Sodium Chloride 0.9% 1, 300 000 ml @ 50 mls/hr IV . Q20H [facility] Rx#:[id number] Output: Urine 500 800 Estimated Blood Loss 200 Other: Voiding Method Urinal Indwelling Catheter - Constitutional General appearance: Present: no acute distress, obese - Respiratory Respiratory: bilateral: CTA - Cardiovascular Rhythm: regular Heart sounds: normal: S1, S2 - Peripheral edema leg Peripheral Edema: bilateral: 1+ - Gastrointestinal General gastrointestinal: Present: soft - Labs CBC & Chem 7: 06/26/16 08:24 06/25/16 09:46 Labs: Abnormal Lab Results - Last 24 Hours (Table) 06/25/16 06/25/16 06/25/16 Range/Units 09:46 09:46 09:49 RBC 2.83 L (4.30-5.90) m/uL Hgb 8.2 L (13.0-17.5) gm/dL Hct 26.6 L (39.0-53.0) % MCHC 30.9 L (31.0-37.0) g/dL Lymphocytes # 0.7 L (1.0-4.8) k/uL PT (9.0-12.0) sec APTT (22.0-30.0) sec BUN 92 H* (9-20) mg/dL Creatinine 5.08 H* (0.66-1.25) mg/dL Glucose 144 H (74-99) mg/dL POC Glucose (mg/dL) (75-99) mg/dL Calcium 7.8 L (8.4-10.2) mg/dL Iron 27 L (49-181) ug/dL TIBC 185 L (261-462) ug/dL % Saturation 14.6 L (20-50) % Ferritin 540 H (18-464) ng/mL 06/25/16 06/25/16 06/25/16 Range/Units 09:49 12:01 18:12 RBC (4.30-5.90) m/uL Hgb (13.0-17.5) gm/dL Hct (39.0-53.0) % MCHC (31.0-37.0) g/dL Lymphocytes # (1.0-4.8) k/uL PT 13.0 H (9.0-12.0) sec APTT 30.3 H (22.0-30.0) sec BUN (9-20) mg/dL Creatinine (0.66-1.25) mg/dL Glucose (74-99) mg/dL POC Glucose (mg/dL) 113 H 125 H (75-99) mg/dL Calcium (8.4-10.2) mg/dL Iron (49-181) ug/dL TIBC (261-462) ug/dL % Saturation (20-50) % Ferritin (18-464) ng/mL 06/25/16 06/26/16 06/26/16 Range/Units 21:28 07:45 08:24 RBC 2.86 L (4.30-5.90) m/uL Hgb 8.3 L (13.0-17.5) gm/dL Hct 27.4 L (39.0-53.0) % MCHC 30.4 L (31.0-37.0) g/dL Lymphocytes # 0.6 L (1.0-4.8) k/uL PT (9.0-12.0) sec APTT (22.0-30.0) sec BUN (9-20) mg/dL Creatinine (0.66-1.25) mg/dL Glucose (74-99) mg/dL POC Glucose (mg/dL) 157 H 161 H (75-99) mg/dL Calcium (8.4-10.2) mg/dL Iron (49-181) ug/dL TIBC (261-462) ug/dL % Saturation (20-50) % Ferritin (18-464) ng/mL Assessment and Plan Plan: Assessment: #1. Chronic kidney disease stage V secondary to nephrosclerosis. --is not uremic, no indication for urgent HD. --I did discuss considering placing of an AV Access in the future. --Please AVOID GIVING NSAIDS!! --Heplock IV. #2. Foot ulceration. on abx. #3. Metabolic acidosis secondary to chronic kidney disease. #4. Anemia. #5. Hypertension with chronic kidney disease. Controlled. #6. Hyperphosphatemia secondary to chronic kidney disease. --On phoslo
--- NOTE | 2016-06-26 09:15 | P.PN ---
Progress Note - Text 0900 Anesthesia POD 1. Patient is status post left BKA under spinal anesthesia with intra-thecal preservative free morphine 300 g. Minimal pruritus, excellent post-op analgesia, and no headache or other complications.
[2016-06-26] MEDS: CEFTAROLINE FOSAMIL 300 MG in SODIUM CHLORIDE 0.9% 250 ML IVPB SCH ×2 (09:18→21:04)
[2016-06-26] MEDS: SODIUM BICARBONATE TAB 650 MG TAB PO SCH ×2 (09:19→21:00)
[2016-06-26] MEDS: CARVEDILOL 12.5 MG TAB PO SCH ×2 (09:19→17:38)
[2016-06-26] MEDS: CALCIUM ACETATE 667 MG CAP PO SCH ×3 (09:19→21:00)
[2016-06-26] MEDS: traMADol 50 MG TAB PO PRN ×2 (09:20→14:27)
[2016-06-26 11:45] LABS: Glucose,Whole Blood 179 mg/dL (75-99)
--- NOTE | 2016-06-26 14:43 | PN ---
This patient had gangrene of the left foot. Patient had a left BK amputation. Today is postop day one. Dressings are intact. Vital signs are stable. We will leave the dressing until Tuesday. We will DC Caba catheter today.
[2016-06-26] MEDS: ACETAMINOPHEN TAB 325 MG TAB PO PRN (15:29)
[2016-06-26] MEDS ORDERED: traMADol 50 MG TAB PO PRN ×2 (15:33)
[2016-06-26] MEDS: HYDROmorphone 1 MG/ML 1 ML SYRINGE IVP PRN (15:48)
[2016-06-26 17:07] LABS: Glucose,Whole Blood 161 mg/dL (75-99)
[2016-06-26] MEDS: ALLOPURINOL 100 MG TAB PO SCH (21:00)
[2016-06-26] MEDS: ENOXAPARIN 40 MG/0.4 ML SYRINGE SQ SCH (21:04)
[2016-06-26 21:26] LABS: Glucose,Whole Blood 160 mg/dL (75-99)
[2016-06-27] MEDS: HYDROmorphone 1 MG/ML 1 ML SYRINGE IVP PRN ×4 (01:52→22:33)
[2016-06-27] MEDS: THYROID, PORK 30 MG TAB PO SCH (06:20)
[2016-06-27 07:57] LABS: Glucose,Whole Blood 128 mg/dL (75-99)
--- NOTE | 2016-06-27 08:17 | PN ---
DATE OF SERVICE: 06/26/2016 REASON FOR FOLLOW UP: 1. Left heel diabetic foot infection. 2. Positive blood culture. INTERVAL HISTORY: The patient is afebrile. Patient is status post left below the knee amputation. Patient has tolerated the procedure well. The patient denies having any chest pain or shortness of breath or cough. No abdominal pain or any diarrhea. On examination, blood pressure is 183/80 with a pulse of 74, temperature 98.6. He is 95% on room air. General description is a middle-age male lying in bed in no distress. RESPIRATORY SYSTEM: Unlabored breathing. Clear to auscultation anteriorly. HEART: S1, S2 regular rate and rhythm. ABDOMEN: Soft, no tenderness. Left below-knee amputation wound is currently dressed up. No obvious drainage on the dressing. LABS: Hemoglobin 8.3, white count 8.6, BUN of 82, creatinine 5.07. Blood cultures with gram-positive. Left heel culture positive for Proteus mirabilis and MRSA. DIAGNOSTIC IMPRESSION AND PLAN: 1. Patient with left diabetic foot infection with underlying osteo and wet gangrene, status post below the knee amputation. Currently the patient will continue on Teflaro. 2. Positive blood culture. Will wait of the sensitivity of this pathogen. Repeat blood culture x1 to make sure no evidence of any persistent bacteremia.
--- NOTE | 2016-06-27 08:29 | P.PN ---
Subjective Principal diagnosis: Doing well. Pain is better controlled. s/p L BKA. Stage V CKD refusing any preparation for dialysis. Not uremic. Objective - Vital Signs Vital signs: Vital Signs Temp 98.4 F 06/26/16 22:00 Pulse 78 06/26/16 22:00 Resp 18 06/26/16 22:00 BP 159/87 06/26/16 22:00 Pulse Ox 94 L 06/26/16 22:00 Intake & Output 06/26/16 06/27/16 06/27/16 18:59 06:59 18:59 Output Total 1100 2000 Balance -1100 -1999 Weight 167 kg Output: Urine 1100 2000 Straight 1000 Other: Voiding Method Indwelling Catheter # Voids 0 # Bowel Movements 0 - Constitutional General appearance: Present: morbidly obese, no acute distress - Respiratory Respiratory: bilateral: CTA - Cardiovascular Rhythm: regular Heart sounds: normal: S1, S2 - Peripheral edema leg Peripheral Edema: right: None - Gastrointestinal General gastrointestinal: Present: soft - Labs CBC & Chem 7: 06/26/16 08:24 06/26/16 08:24 Labs: Abnormal Lab Results - Last 24 Hours (Table) 06/26/16 06/26/16 06/26/16 Range/Units 08:24 08:24 11:44 RBC 2.86 L (4.30-5.90) m/uL Hgb 8.3 L (13.0-17.5) gm/dL Hct 27.4 L (39.0-53.0) % MCHC 30.4 L (31.0-37.0) g/dL Lymphocytes # 0.6 L (1.0-4.8) k/uL Carbon Dioxide 21 L (22-30) mmol/L BUN 82 H* (9-20) mg/dL Creatinine 5.07 H* (0.66-1.25) mg/dL Glucose 168 H (74-99) mg/dL POC Glucose (mg/dL) 179 H (75-99) mg/dL Calcium 7.7 L (8.4-10.2) mg/dL 06/26/16 06/26/16 06/27/16 Range/Units 17:05 20:53 07:37 RBC (4.30-5.90) m/uL Hgb (13.0-17.5) gm/dL Hct (39.0-53.0) % MCHC (31.0-37.0) g/dL Lymphocytes # (1.0-4.8) k/uL Carbon Dioxide (22-30) mmol/L BUN (9-20) mg/dL Creatinine (0.66-1.25) mg/dL Glucose (74-99) mg/dL POC Glucose (mg/dL) 161 H 160 H 128 H (75-99) mg/dL Calcium (8.4-10.2) mg/dL Assessment and Plan Plan: Assessment: #1. Chronic kidney disease stage V secondary to nephrosclerosis. --is not uremic, no indication for urgent HD. --I did discuss considering placing of an AV Access in the future. --Please AVOID GIVING NSAIDS!! #2. s/p Left BKA #2. #3. Metabolic acidosis secondary to chronic kidney disease. --On NACHO3. #4. Anemia. #5. Hypertension with chronic kidney disease. Controlled. #6. Hyperphosphatemia secondary to chronic kidney disease. --on phoslo
[2016-06-27 08:45] LABS: Calcium 7.8 mg/dL (8.4-10.2); Potassium 4.4 mmol/L (3.5-5.1)
[2016-06-27] MEDS: SODIUM BICARBONATE TAB 650 MG TAB PO SCH ×2 (09:27→22:50)
[2016-06-27] MEDS: CALCIUM ACETATE 667 MG CAP PO SCH ×3 (09:27→22:50)
[2016-06-27] MEDS: CARVEDILOL 12.5 MG TAB PO SCH ×2 (09:27→17:40)
[2016-06-27] MEDS: CEFTAROLINE FOSAMIL 300 MG in SODIUM CHLORIDE 0.9% 250 ML IVPB SCH ×2 (10:46→22:49)
--- NOTE | 2016-06-27 11:26 | PN ---
DATE OF SERVICE: 06/26/2016 PRESENTING COMPLAINT: Left foot abscess. INTERVAL HISTORY: This patient presented with left foot abscess with underlying osteomyelitis. Patient has undergone a left below-knee amputation. Some pain is present. Patient is resting. No nausea or vomiting. No chest pain. Review of systems done for constitutional, cardiovascular, GI, pulmonary; relevant findings as above. Current medications are reviewed that include IV cefepime. On examination, temperature 98.6, pulse 94, respirations 16, blood pressure 183/88, pulse ox 95% on room air with the medications. GENERAL APPEARANCE: Lying in bed, tired -appearing. EYES: Pupils equal, conjunctivae are normal. NECK: JVD not raised. Mass not palpable. Respiratory effort normal. Lungs are clear. CARDIOVASCULAR: First and second sounds normal. No edema. ABDOMEN: Soft. Liver and spleen not palpable. EXTREMITIES: Left leg in a stump. INVESTIGATIONS: White count 8.6, hemoglobin 8.3, BUN 82, creatinine 5.07. Accu-Cheks are noted. ASSESSMENT: 1. Acute left heel abscess secondary to neuropathy with possible osteomyelitis of the calcaneum, growing methicillin-resistant Staphylococcus aureus and Proteus mirabilis followed by left below-knee amputation. 2. Stage V kidney disease secondary to nephrosclerosis, uncontrolled. 3. Morbid obesity; body mass index of 51 .5. 4. Chronic congestive heart failure from diastolic dysfunction. 5. Hypertensive heart disease. 6. Secondary hyperparathyroidism secondary to ( ) disease. 7. Metabolic acidosis, renal failure. PLAN: Continue current medication and treatment plan. Patient to get her antihypertensive; talked to Surgery, recheck blood pressure again.
[2016-06-27 12:14] LABS: Glucose,Whole Blood 193 mg/dL (75-99)
--- NOTE | 2016-06-27 13:11 | P.PN ---
Progress Note - Text c/o urinary retention requiring straight catheterization pain is under control seen by PT earlier today AF VSS left BK amputation site is clean and intact; no evidence of bleeding or hematoma , right foot is intact with no palpable pedal pulses impression/plan 1. s/p left BKA for osteomyelitis left calcanenous POD #2 remains surgically stable leave dressing on until 06/28/2016 will be seen by Dr. Méndez in am
[2016-06-27 17:09] LABS: Glucose,Whole Blood 173 mg/dL (75-99)
[2016-06-27 21:46] LABS: Glucose,Whole Blood 184 mg/dL (75-99)
[2016-06-27] MEDS: ALLOPURINOL 100 MG TAB PO SCH (22:49)
[2016-06-27] MEDS: ENOXAPARIN 40 MG/0.4 ML SYRINGE SQ SCH ×2 (22:49→22:51)
[2016-06-28] MEDS: THYROID, PORK 30 MG TAB PO SCH (06:42)
[2016-06-28 07:13] LABS: Glucose,Whole Blood 128 mg/dL (75-99)
[2016-06-28] MEDS: HYDROmorphone 1 MG/ML 1 ML SYRINGE IVP PRN ×3 (08:44→20:04)
[2016-06-28] MEDS: CEFTAROLINE FOSAMIL 300 MG in SODIUM CHLORIDE 0.9% 250 ML IVPB SCH ×2 (09:21→20:12)
[2016-06-28] MEDS: CARVEDILOL 12.5 MG TAB PO SCH ×2 (09:21→17:54)
[2016-06-28] MEDS: SODIUM BICARBONATE TAB 650 MG TAB PO SCH ×2 (09:21→20:12)
[2016-06-28] MEDS: CALCIUM ACETATE 667 MG CAP PO SCH ×3 (09:21→20:12)
[2016-06-28 09:37] LABS: Potassium 4.4 mmol/L (3.5-5.1)
[2016-06-28] MEDS ORDERED: DARBEPOETIN ALFA 40 MCG/0.4 ML SYRINGE SQ SCH (10:00)
--- NOTE | 2016-06-28 10:41 | P.PN ---
Subjective Patient is seen in follow-up for chronic kidney disease stage V. Patient is currently being treated with IV antibiotics for a left heel wound. He underwent left below the knee amputation on 06/25/2016. He now has a Caba catheter in place due to urinary retention. He is nonoliguric. Appetite is good. No vomiting or diarrhea. Denies any chest pain or shortness of breath. Vital signs are stable. General: The patient appeared well nourished and normally developed. HEENT: Head exam is unremarkable. Neck is without jugular venous distension. LUNGS: Lungs are clear to auscultation and percussion. Breath sounds decreased. HEART: Rate and Rhythm are regular. First and second heart sounds normal. No murmurs, rubs or gallops. ABDOMEN: Abdominal exam reveals normal bowel sounds. Non-tender and non- distended. No evidence of peritonitis. EXTREMITITES: No clubbing, cyanosis, or edema. Objective - Vital Signs Vital signs: Vital Signs Temp 98.5 F 06/28/16 07:00 Pulse 78 06/28/16 07:00 Resp 16 06/28/16 07:00 BP 161/87 06/28/16 07:00 Pulse Ox 93 L 06/28/16 07:00 Intake & Output 06/27/16 06/28/16 06/28/16 18:59 06:59 18:59 Output Total 1000 3600 2000 Balance -1000 -3600 -2000 Weight 167.5 kg Output: Urine 1000 3600 2000 Uretheral (Caba) 1400 Other: Voiding Method Indwelling Catheter # Voids 0 1 - Labs CBC & Chem 7: 06/26/16 08:24 06/28/16 08:58 Labs: Abnormal Lab Results - Last 24 Hours (Table) 06/27/16 06/27/16 06/27/16 Range/Units 12:07 17:08 20:58 BUN (9-20) mg/dL Creatinine (0.66-1.25) mg/dL Glucose (74-99) mg/dL POC Glucose (mg/dL) 193 H 173 H 184 H (75-99) mg/dL Calcium (8.4-10.2) mg/dL 06/28/16 06/28/16 Range/Units 07:10 08:58 BUN 62 H (9-20) mg/dL Creatinine 5.04 H* (0.66-1.25) mg/dL Glucose 148 H (74-99) mg/dL POC Glucose (mg/dL) 128 H (75-99) mg/dL Calcium 8.0 L (8.4-10.2) mg/dL Microbiology - Last 24 Hours (Table) 06/26/16 14:10 Blood Culture - Preliminary Blood No Growth after 24 hours 06/26/16 13:50 Blood Culture - Preliminary Blood No Growth after 24 hours Assessment and Plan Plan: Assessment: #1. Chronic kidney disease stage V secondary to nephrosclerosis. #2. Foot ulceration. Wound culture positive for gram-negative as well as staph aureus. Status post left below the knee amputation on 06/25/2016. #3. Metabolic acidosis secondary to chronic kidney disease. #4. Anemia. Iron deficiency present. #5. Hypertension with chronic kidney disease. Controlled. #6. Hyperphosphatemia secondary to chronic kidney disease. Plan: Maintain IV fluids to be run at 50 mL an hour. Maintain oral sodium bicarbonate supplementation. Antibiotics per infectious disease recommendations. Ferrlecit 125 mg IV daily for 3 days. Start Aranesp. Avoid nephrotoxic agents and hypotensive episodes. Maintain PhosLo with meals. Patient wishes for no renal replacement therapy.
--- NOTE | 2016-06-28 11:21 | PN ---
DATE OF SERVICE: 06/27/2016 PRESENTING COMPLAINT: Left foot abscess. INTERVAL HISTORY: Patient is status post left calcaneus osteomyelitis and left foot abscess, status post left below-knee amputation. Pain is controlled, stump in dressing. Tolerating his diet, no diarrhea. Review of systems done for constitutional, cardiovascular, GI, pulmonary; relevant findings as above. Current medications are reviewed that include IV ceftaroline. On examination, temperature 99.2, pulse 78, respirations 16, blood pressure 147/72, pulse ox 94% on room air. GENERAL APPEARANCE: Lying in bed, tired-appearing. EYES: Pupils equal, conjunctivae normal. NECK: JVD not raised. Mass not palpable. Respiratory effort normal. Lungs are clear. CARDIOVASCULAR: First and second sounds normal. No edema. ABDOMEN: Soft, nontender. Liver and spleen not palpable. EXTREMITIES: Left below-knee amputation and stump in a dressing. INVESTIGATIONS: BUN 69, creatinine 4.96. Accu-Cheks are noted. ASSESSMENT: 1. Acute left heel abscess with significant neuropathy with osteomyelitis of the calcaneum growing methicillin-resistant Staphylococcus aureus and proteus mirabilis followed by left below-knee amputation. 2. Stage V kidney disease secondary to nephrosclerosis. 3. Moderate obesity,. body mass index of 51.5. 4. Chronic congestive heart failure from diastolic dysfunction. 5. Hypertensive heart disease. 6. Secondary hyperparathyroidism secondary to kidney disease. 7. Metabolic acidosis, from renal failure. PLAN: Continue current medication and treatment plan. Will follow. Care was discussed with the patient.
[2016-06-28] MEDS: SODIUM FERRIC GLUCONAT-SUCROSE 125 MG in SODIUM CHLORIDE 0.9% 100 ML IVPB SCH (11:36)
--- NOTE | 2016-06-28 12:10 | PN ---
DATE OF SERVICE: 06/27/2016 Reason for follow-up: 1. Left foot osteomyelitis. 2. Bacteremia. INTERVAL HISTORY: The patient is afebrile, has been breathing comfortably and denies having any chest pain or shortness of breath or cough. No abdominal pain , slight pain in his left foot wound site. On examination, blood pressure 147/72 with a pulse of 78, temperature 99.2. He is 94% on room air. General description is a middle-age male lying in bed in no distress. RESPIRATORY SYSTEM: Unlabored breathing. Clear to auscultation anteriorly. HEART: S1, S2. Regular rate and rhythm. ABDOMEN: Soft, no tenderness. Left heel wound is currently dressed. No obvious drainage on the dressing. LABS: Blood cultures with Gram-positive cocci in pairs and chains with ID pending. DIAGNOSTIC IMPRESSION AND PLAN: Patient with left ankle diabetic foot infection with likely osteomyelitis status post left below the knee amputation, wound culture with Proteus Mirabilis for which the patient currently on antibiotics . Blood culture also showing gram positive cocci awaiting for the final ID to determine significance of it. Follow-up blood cultures 06/26 remains to be negative. Continue supportive care. [facility]
[2016-06-28 12:17] LABS: Glucose,Whole Blood 148 mg/dL (75-99)
[2016-06-28 16:59] LABS: Glucose,Whole Blood 137 mg/dL (75-99)
[2016-06-28] MEDS: ALLOPURINOL 100 MG TAB PO SCH (20:12)
[2016-06-28] MEDS: PRAZOSIN 1 MG CAP PO SCH (20:12)
[2016-06-28] MEDS: ENOXAPARIN 40 MG/0.4 ML SYRINGE SQ SCH (20:13)
[2016-06-28 21:32] LABS: Glucose,Whole Blood 140 mg/dL (75-99)
--- NOTE | 2016-06-28 23:28 | PN ---
DATE OF SERVICE: 06/28/2016 PRESENTING COMPLAINT: Left foot abscess. INTERVAL HISTORY: Patient is status post left calcaneal osteomyelitis and left foot abscess, status post left below-knee amputation. Pain is controlled. Tolerating his diet. Patient does not want renal replacement therapy. Review of systems done for constitutional, cardiovascular, GI, pulmonary, musculoskeletal; relevant findings as above. Current medications are reviewed that include IV ceftaroline. On examination, temperature 100.1, pulse 74, respiration 16, blood pressure 154/79, pulse ox 94% on room air. GENERAL APPEARANCE: Lying in bed, comfortable. EYES: Pupils equal. Conjunctivae normal. NECK: JVD not raised. Mass not palpable. RESPIRATORY: Effort normal. Lungs are clear. CARDIOVASCULAR: First and second sounds normal. No edema. ABDOMEN: Soft, nontender. Liver and spleen not palpable. PSYCHIATRY: Alert and oriented x3. Mood and affect normal. EXTREMITIES: Left below-knee amputation has dressing. INVESTIGATIONS: Potassium 4.4. BUN 62, creatinine 5.04. Accu-Cheks are noted. ASSESSMENT: 1. Left calcaneal osteomyelitis with abscess, status post left below-knee amputation, growing methicillin-resistant Staphylococcus aureus and Proteus mirabilis. 2. Stage V kidney disease secondary to nephrosclerosis. Patient does not want renal replacement therapy. 3. Morbid obesity; body mass index of 51.5. 4. Chronic congestive heart failure from diastolic dysfunction. 5. Hypertensive heart disease. 6. Secondary hyperparathyroidism secondary to kidney disease. 7. Metabolic acidosis and renal failure. PLAN: Will adjust patient's blood pressure medications further. Will add Prazosin.
[2016-06-29] MEDS: HYDROmorphone 1 MG/ML 1 ML SYRINGE IVP PRN ×3 (03:07→14:59)
[2016-06-29] MEDS: THYROID, PORK 30 MG TAB PO SCH (06:32)
[2016-06-29 07:32] LABS: Glucose,Whole Blood 128 mg/dL (75-99)
[2016-06-29] MEDS: CARVEDILOL 12.5 MG TAB PO SCH ×2 (08:00→17:08)
[2016-06-29 08:16] VITALS: RESP 16
--- NOTE | 2016-06-29 08:56 | PN ---
DATE OF SERVICE: 06/28/2016 REASON FOR FOLLOWUP: Left heel osteo polymicrobial, positive blood culture. INTERVAL HISTORY: The patient is afebrile. He has been breathing comfortably. Denies having any chest pain, shortness of breath or cough. No abdominal pain or diarrhea. On examination, blood pressure is 154/79, pulse 74, temperature 98, he is 4% on room air. GENERAL DESCRIPTION: A middle-age male lying in bed in no distress. RESPIRATORY SYSTEM: Unlabored breathing. Clear to auscultation. HEART: S1, S2. Regular rate and rhythm. ABDOMEN: Soft, no tenderness. EXTREMITIES: BK wound is dressed no drainage on the dressing. LABS: BUN 52, creatinine 5.04. Blood cultures with a Gram-positive bacilli, previously was a Gram-positive cocci. DIAGNOSTIC IMPRESSION AND PLAN: 1. Patient with left diabetic foot infection with likely osteo, culture has been positive for Proteus and methicillin-resistant Staphylococcus aureus. The patient is status post amputation and the infected part has been removed. The patient was not bacteremic will be able to finish therapy with oral antibiotics. Continue to flow. 2. Positive blood culture with Gram-positive bacilli is more likely skin contamination Follow-up blood culture has been negative. [facility]
[2016-06-29] MEDS: PRAZOSIN 1 MG CAP PO SCH (09:34)
[2016-06-29] MEDS: SODIUM FERRIC GLUCONAT-SUCROSE 125 MG in SODIUM CHLORIDE 0.9% 100 ML IVPB SCH (09:34)
[2016-06-29] MEDS: CALCIUM ACETATE 667 MG CAP PO SCH ×2 (09:35→17:07)
[2016-06-29] MEDS: SODIUM BICARBONATE TAB 650 MG TAB PO SCH (09:35)
[2016-06-29] MEDS: ENOXAPARIN 40 MG/0.4 ML SYRINGE SQ SCH (09:36)
[2016-06-29 09:58] LABS: Potassium 4.6 mmol/L (3.5-5.1)
[2016-06-29] MEDS: CEFTAROLINE FOSAMIL 300 MG in SODIUM CHLORIDE 0.9% 250 ML IVPB SCH (10:51)
--- NOTE | 2016-06-29 11:30 | P.PN ---
Subjective Patient is seen in follow-up for chronic kidney disease stage V. Patient is currently being treated with IV antibiotics for a left heel wound. He underwent left below the knee amputation on 06/25/2016. He now has a Caba catheter in place due to urinary retention. He is nonoliguric. Appetite is good. No vomiting or diarrhea. Denies any chest pain or shortness of breath. Vital signs are stable. General: The patient appeared well nourished and normally developed. HEENT: Head exam is unremarkable. Neck is without jugular venous distension. LUNGS: Lungs are clear to auscultation and percussion. Breath sounds decreased. HEART: Rate and Rhythm are regular. First and second heart sounds normal. No murmurs, rubs or gallops. ABDOMEN: Abdominal exam reveals normal bowel sounds. Non-tender and non- distended. No evidence of peritonitis. EXTREMITITES: No clubbing, cyanosis, or edema. Objective - Vital Signs Vital signs: Vital Signs Temp 97.8 F 06/29/16 07:00 Pulse 72 06/29/16 07:00 Resp 16 06/29/16 07:00 BP 161/78 06/29/16 07:00 Pulse Ox 94 L 06/29/16 07:00 Intake & Output 06/28/16 06/29/16 06/29/16 18:59 06:59 18:59 Intake Total 500 300 Output Total 2000 700 Balance -1500 -400 Weight 161.5 kg Intake: Oral 500 300 Output: Urine 2000 700 Uretheral (Caba) 1400 Other: Voiding Method Indwelling Catheter Indwelling Catheter # Voids 1 # Bowel Movements 1 - Labs CBC & Chem 7: 06/26/16 08:24 06/29/16 09:08 Labs: Abnormal Lab Results - Last 24 Hours (Table) 06/28/16 06/28/16 06/28/16 Range/Units 12:15 16:55 21:25 BUN (9-20) mg/dL Creatinine (0.66-1.25) mg/dL Glucose (74-99) mg/dL POC Glucose (mg/dL) 148 H 137 H 140 H (75-99) mg/dL Calcium (8.4-10.2) mg/dL 06/29/16 06/29/16 Range/Units 07:30 09:08 BUN 58 H (9-20) mg/dL Creatinine 4.97 H (0.66-1.25) mg/dL Glucose 139 H (74-99) mg/dL POC Glucose (mg/dL) 128 H (75-99) mg/dL Calcium 8.0 L (8.4-10.2) mg/dL Microbiology - Last 24 Hours (Table) 06/26/16 14:10 Blood Culture - Preliminary Blood No Growth after 48 hours 06/26/16 13:50 Blood Culture - Preliminary Blood No Growth after 48 hours Assessment and Plan Plan: Assessment: #1. Chronic kidney disease stage V secondary to nephrosclerosis. #2. Foot ulceration. Wound culture positive for gram-negative as well as staph aureus. Status post left below the knee amputation on 06/25/2016. #3. Metabolic acidosis secondary to chronic kidney disease. #4. Anemia. Iron deficiency present. #5. Hypertension with chronic kidney disease. Controlled. #6. Hyperphosphatemia secondary to chronic kidney disease. Plan: Hep-Lock IV fluids. Maintain oral sodium bicarbonate supplementation. Antibiotics per infectious disease recommendations. Ferrlecit 125 mg IV daily for 3 days. Maintain Aranesp. Avoid nephrotoxic agents and hypotensive episodes. Maintain PhosLo with meals. Patient wishes for no renal replacement therapy.
[2016-06-29 12:18] LABS: Glucose,Whole Blood 146 mg/dL (75-99)
--- NOTE | 2016-06-29 12:21 | CDI ---
In responding to this query, please exercise your independent professional judgment. The [facility] Coding Staff and Clinical Documentation Specialists appreciate your assistance in clarifying documentation, maintaining compliance with coding guidelines, accurately documenting patients condition and capturing severity of illness. The fact that a question is asked does not imply that any particular answer is desired or expected. Communication forms are a method of clarifying documentation and are not made part of the Legal Health Record. Thank you in advance for your clarification. Last Revision, August 2015 Jasmeet An [address] [place] [address] Documentation Clarification Form Date: 06/29/2016 12:09:00 PM From: Charmaine Mahoney, JOSE L, CCDS Admit Date: 06/23/2016 6:19:00 AM Patient Name: Isaiah Swartz Visit Number: [id number] Discharge Date: Dr. Fredrick Rasheed: Osteomyelitis has been documented in the H/P and subsequent progress notes. Clinical Indicators: 51 yo male presented with a left foot heel abscess, suspected to be osteomyelitis now status post a Left Below Knee Amputation by vascular surgery for same. RAD: Left foot XR: Displaced fracture posterior aspect left calcaneum with probable open would with possible inflammatory process in the soft tissues. Small gas bubbles noted, small abscess formation cannot be exclude. No definite acute osteomyelitis changes noted in the left foot. History: CHF with diastolic dysfunction, Hypertensive heart disease, CKD Stage V not wishing to have renal replacement therapy and DM II, diet controlled. Treatment: IV Vanco, IV Levaquin, IV fluids, IV Ampicillin, IV NaBicarb, IV Teflaro, IV Ultram. Consults: Nephrology, Infectious Disease, Vascular Surgery In your professional opinion, please specify the following: Acuity: Acute Chronic Subacute Unable to Determine Cause: Viral (specify organism if know): Bacterial (specify organism if know): Other (please specify): Unable to Determine Associated condition (if applicable): Diabetic Major osseous defect (specify site) Other (please specify): Please document in your progress notes and discharge summary in order to capture severity of illness and risk of mortality. Include clinical findings that support your diagnosis. FYI: Press F11 to launch patient chart Place X here if this finding has no clinical significance, is not applicable or if you are not able to provide any additional documentation. Thank You. TOVA
[2016-06-29] MEDS ORDERED: amLODIPine 5 MG TAB PO SCH (14:15)
--- NOTE | 2016-06-29 14:52 | DS ---
DATE OF ADMISSION: 06/23/2016 DATE OF DISCHARGE: 06/29/2016 FINAL DIAGNOSES: 1. Acute left calcaneal osteomyelitis probably bacterial in a diabetic, status post left below-knee amputation, growing Methicillin-resistant Staphylococcus aureus and Proteus mirabilis. 2. Stage V kidney disease secondary to nephrosclerosis. The patient does not want renal replacement therapy. 3. Morbid obesity, body mass index of 51.5. 4. Chronic congestive heart failure from diastolic dysfunction; ejection fraction not known. 5. Hypertensive heart disease. 6. Secondary hyperparathyroidism from secondary to kidney disease. 7. Metabolic acidosis from renal failure. HOSPITAL COURSE: This is a patient who does not want hemodialysis, whose BUN and creatinine now is 15 and 4.97 presented with osteomyelitis of the left calcaneal and suspect to be bacterial. Final pathology is pending. Underwent a left below-knee amputation. Dr. Newton through Infection Disease ordered the antibiotics. The patient is doing much better at the time of discharge. CONSULTATIONS: 1. Dr. Diallo from Nephrology. 2. Dr. Newton from Infection Disease. 3. Dr. Méndez from General Surgery. On the day of discharge care was discussed with the patient, social welfare administrator. Care was coordinated including antibiotics. Also discussed with Dr. Newton. On examination, lungs are clear. CARDIOVASCULAR: First and second sounds normal. Left leg in a stump. DISCHARGE MEDICATIONS: 1. PhosLo 667 mg p.o. t.i.d. 2. Merigold Thyroid 60 mg p.o. daily. 3. Coreg 25 p.o. b.i.d. 4. Uloric 40 mg p.o. q.h.s. 5. Merigold Thyroid 15 mg p.o. daily. 6. Norvasc 5 mg p.o. daily. 7. Cipro 500 mg p.o. daily for 7 days. 8. ( ) 40 mcg subcu q.7 days. 9. Vibramycin 100 mg p.o. q.12, 40 capsules. 10. Prazosin 2 mg p.o. b.i.d. 11. Sodium bicarbonate 1300 mg p.o. b.i.d. 12. Ultram 100 mg p.o. q.6 p.r.n. for pain. Follow with Dr. Méndez in one week, Dr. Lentz on 1/25/17 at the [facility], Dr. Rankin in 10 days. LABS: CBC, BMP in 3 days. Dressing change q.48h to left stump. 4 x 4 gauze, ABD and wrap with Kerlix. Keep elevated and notify Dr. Méndez if any change. DISPOSITION: [facility]. Discharge planning more than 35 minutes.
--- NOTE | 2016-06-29 15:50 | PN ---
DATE OF SERVICE: 06/29/2016 Reason for follow-up is left diabetic foot infection. INTERVAL HISTORY: The patient is afebrile, has been feeling better. Breathing comfortably. Denies any chest pain. No shortness of breath or cough. No abdominal pain or any pain in the BKA. On examination, blood pressure is 151/78 with a pulse of 72, temperature 97.8. He is 94% on room air. General description is a middle-age male lying in bed in no distress. RESPIRATORY SYSTEM: Unlabored breathing. Clear to auscultation. HEART: S1, S2 regular rate and rhythm. ABDOMEN: Soft. Left BKA is currently dressed and no obvious drainage on the dressing. LABS: BUN of 58, creatinine 4.97. Left foot culture with methicillin-resistant Staphylococcus aureus and Proteus mirabilis. The blood culture with Gram-positive bacilli. DIAGNOSTIC IMPRESSION AND PLAN: 1. Patient with diabetic foot infection, status post below-knee amputation. As the patient was not bacteremic and PEG has been removed, he will be given a short course of p.o. Cipro 500 daily along with doxycycline 100 b.i.d. for about a week. 2. Positive blood cultures with gram positive bacilli more likely a skin contamination. No need for further work-up for the same. Follow-up blood culture negative. [facility]
[2016-06-29 16:48] VITALS: BP 149/88; PULSE 70; TEMP 98.9
[2016-06-29 17:25] LABS: Glucose,Whole Blood 131 mg/dL (75-99)
[2016-06-29] MEDS ORDERED: ENOXAPARIN 30 MG/0.3 ML SYRINGE SQ SCH (21:00)
--- NOTE | 2016-07-07 22:09 | OP ---
DATE OF SERVICE: SURGEON: MICHELINE LEVY MD FOOT CUTTER: PREOPERATIVE DIAGNOSIS: Gangrene of the left foot with exposed tendon and calcaneus bone and ankle joint. POSTOPERATIVE DIAGNOSIS: Gangrene of the left foot with exposed tendon and calcaneus bone and ankle joint. OPERATION: Left below-knee amputation. ANESTHESIA: General anesthesia. ESTIMATED BLOOD LOSS: SPECIMENS REMOVED: COMPLICATIONS: OPERATIVE FINDINGS: DESCRIPTION OF PROCEDURE: This patient was seen on consult. Patient has history of chronic renal failure, not on dialysis. Patient has a history of obesity. Patient had a wound and gangrene changes left foot dorsal surface with foul odor smell. The calcaneus bone is exposed and tendons were exposed. Patient was scheduled to have a left below-knee amputation dated 07/02/2016. Patient was brought to the operating room and under prep, incision was made at 6 inches below the tibial tuberosity for the anterior flap, deepened through the skin, fat, and fascia and the posterior flap was created longer than the anterior flap. Dissection was carried out at the medial compartment of the lower leg muscles were divided and then lateral compartment muscles were divided. After that, we dissected around the tibia and fibula. With electric saw, we divided the tibia and fibula was divided shorter than the tibia with electric saw. After that, tibial arteries were suture-ligated with 5-0 Prolene. They were calcified and tibial nerves were divided also by traction and tied. Posterior flap was created and gastrocnemius and soleus muscles were divided. Gastrocnemius muscle was used as flap. Specimen was removed. Wound was copiously irrigated with hydrogen peroxide and saline. After that, there was some bleeding points which were controlled by suture ligating. The anterior and posterior compartment muscles were approximated with interpreted suture using 3-0 Vicryl and soleus muscle tendons were also sutured to the fascia of the anterior compartment muscles and after that the fascia was approximated with 3-0 Vicryl with interrupted suture and skin was closed with 4-0 nylon with mattress interrupted suture. Dressing applied. The patient transferred to the recovery room in satisfactory condition.
== END 2016-06-29 18:52 | DRG 617 ==
LOC: EC 05:22 → 4MS4W 06:19
PROVIDERS: ADMIT Hospitalist; ATTEND Hospitalist
PROC: 0Y6J0Z2 Detachment at Left Lower Leg, Mid, Open Approach (ICD-10-PCS; principal; 2016-06-25 12:10)
DX: E11.69 Type 2 diabetes mellitus with other specified complication (principal); M86.172 Other acute osteomyelitis, left ankle and foot; I13.2 Hypertensive heart and chronic kidney disease with heart failure and with stage 5 chronic kidney disease, or end stage renal disease; E87.2 Acidosis; E11.52 Type 2 diabetes mellitus with diabetic peripheral angiopathy with gangrene; Z68.43 Body mass index [BMI] 50.0-59.9, adult; S92.002B Unspecified fracture of left calcaneus, initial encounter for open fracture; L02.612 Cutaneous abscess of left foot; I50.32 Chronic diastolic (congestive) heart failure; E11.621 Type 2 diabetes mellitus with foot ulcer; N18.5 Chronic kidney disease, stage 5; E11.22 Type 2 diabetes mellitus with diabetic chronic kidney disease; E11.42 Type 2 diabetes mellitus with diabetic polyneuropathy; E66.01 Morbid (severe) obesity due to excess calories; N25.81 Secondary hyperparathyroidism of renal origin; E83.39 Other disorders of phosphorus metabolism; E11.628 Type 2 diabetes mellitus with other skin complications; Z66 Do not resuscitate; Z51.5 Encounter for palliative care; D50.9 Iron deficiency anemia, unspecified; R33.9 Retention of urine, unspecified; B95.62 Methicillin resistant Staphylococcus aureus infection as the cause of diseases classified elsewhere; Q80.9 Congenital ichthyosis, unspecified; E03.9 Hypothyroidism, unspecified; B96.4 Proteus (mirabilis) (morganii) as the cause of diseases classified elsewhere; Z71.3 Dietary counseling and surveillance; Z79.899 Other long term (current) drug therapy
CPT/HCPCS: 36415; 71010; 80048; 80053; 80202; 81001; 82533; 82728; 83540; 83550; 83605; 84100; 85025; 85610; 85730; 86850; 86900; 86901; 87040; 87070; 87077; 87086; 87186; 87205; 88307; 88311; 94760; 96365; 99291

== ENCOUNTER 2016-07-04 08:07 | Inpatient (IN) | payer MEDICARE, OTHER ==
[2016-07-04] MEDS ORDERED: ENOXAPARIN 150 MG/ML SYRINGE SQ STA (08:42)
--- NOTE | 2016-07-04 08:51 | ED ---
SOB HPI - General Chief Complaint: Shortness of Breath Stated Complaint: diff breathing Time Seen by Provider: 07/04/16 08:10 Source: EMS, RN notes reviewed Mode of arrival: EMS Limitations: no limitations - History of Present Illness Initial Comments: This patient is a 51-year-old man who is brought in from senior living by EMS, for having shortness of breath and low pulse ox numbers. The patient reports that he has been feeling like he is having a hard time breathing since , but it it was a little bit worse over the course of last night. The patient is denying any associated symptoms with this. He is not having any pains, in the chest, back, or legs. He is not having a cough. He is not having change in urination or bowel movements. No leg swelling. The patient does state that he had an x-ray performed on when the symptoms had started, but he is not on result of this. MD Complaint: shortness of breath Onset/Timin -: days(s) Severity: moderate Consistency: constant Improves With: oxygen Worsens With: nothing Known History Of: diabetes, other (Previous history of renal failure and pleural effusion) Associated Symptoms: denies other symptoms Treatments Prior to Arrival: oxygen - Related Data Home Medications Medication Instructions Recorded Confirmed Calcium Acetate [PhosLo] 667 mg PO TID 03/14/14 07/04/16 Thyroid,Pork [[place] Thyroid] 60 mg PO DAILY 03/14/14 07/04/16 Febuxostat [Uloric] 40 mg PO HS 05/23/15 07/04/16 Thyroid,Pork [[place] Thyroid] 15 mg PO DAILY 05/23/15 07/04/16 amLODIPine BESYLATE [Norvasc] 5 mg PO HS 06/23/16 07/04/16 Carvedilol [Coreg] 25 mg PO BID 07/04/16 07/04/16 Doxycycline Hyclate [Vibramycin] 200 mg PO Q12H 07/04/16 07/04/16 Ipratropium-Albuterol Nebulize 3 ml INHALATION RT-QID 07/04/16 07/04/16 [Duoneb 0.5 mg-3 mg/3 ml Soln] Previous Rx's Medication Instructions Recorded Ciprofloxacin HCl [Cipro] 500 mg PO DAILY #7 tablet 06/29/16 Prazosin [Minipress] 2 mg PO BID cap 06/29/16 Sodium Bicarbonate Tab 1,300 mg PO BID tab 06/29/16 traMADol HCl [Ultram] 100 mg PO Q6H PRN #20 tab 06/29/16 Allergies Allergy/AdvReac Type Severity Reaction Status Date / Time No Known Allergies Allergy Verified 07/04/16 11:26 Review of Systems ROS Statement: Those systems with pertinent positive or pertinent negative responses have been documented in the HPI. ROS Other: All systems not noted in ROS Statement are negative. Constitutional: Denies: fever, chills ENT: Denies: throat pain Respiratory: Reports: dyspnea. Denies: cough, wheezes, hemoptysis Cardiovascular: Denies: chest pain, palpitations, orthopnea, edema, syncope Gastrointestinal: Denies: abdominal pain, vomiting, diarrhea, melena, hematochezia Genitourinary: Denies: dysuria Musculoskeletal: Denies: back pain Skin: Denies: rash Neurological: Denies: headache, weakness, numbness Hematological/Lymphatic: Denies: easy bleeding Past Medical History Past Medical History: Diabetes Mellitus, Eye Disorder, Hypertension Additional Past Medical History / Comment(s): chronic kidney disease stage 4- past hemodialysis for about 45 days-now refusing, NIDDM type II diet controlled , cardiomegaly, L pleural effusions with thoracentesis, bone mineral dx, anemia , hypothyroidism, L eye astigmatism, R femur fx as child with body cast. History of Any Multi-Drug Resistant Organisms: MRSA Date of last positivie culture/infection: 06/23/16 MDRO Source:: Left Foot Past Surgical History: No Surgical Hx Reported Additional Past Surgical History / Comment(s): L sided thoracentesis x 3. Past Anesthesia/Blood Transfusion Reactions: No Reported Reaction Additional Past Anesthesia/Blood Transfusion Reaction / Comment(s): Pt has never had anesthesia. Past Psychological History: No Psychological Hx Reported Additional Psychological History / Comment(s): Pt resides alone. He can stand and pivot to wheelchair. He lives in [facility]. He uses the bus to get places. Smoking Status: Never smoker Past Alcohol Use History: Occasional Past Drug Use History: None Reported - Past Family History Father Family Medical History: Cancer Additional Family Medical History / Comment(s): NON HODGKINS LYNPHOMA. Father at the age of 50 from chemo treatment to get ready for bone marrow transplant. Mother Family Medical History: Cancer Additional Family Medical History / Comment(s): BREAST CANCER SURVIVOR. General Exam Limitations: no limitations General appearance: alert, in no apparent distress, obese Head exam: Present: atraumatic, normocephalic Eye exam: Present: normal appearance. Absent: scleral icterus, conjunctival injection ENT exam: Present: normal oropharynx Neck exam: Present: normal inspection Respiratory exam: Present: normal lung sounds bilaterally. Absent: respiratory distress, wheezes, rales, rhonchi Cardiovascular Exam: Present: regular rate, normal rhythm, normal heart sounds GI/Abdominal exam: Present: soft. Absent: distended, tenderness, guarding, rebound, mass, pulsatile mass Extremities exam: Present: full ROM, normal capillary refill, pedal edema (Mild edema at the ankle and the right), other (Recent left leg BKA. Palpation above the amputation does not reveal palpable cord or tenderness. The right leg does not reveal a palpable cord, tenderness, or Homans sign). Absent: tenderness, calf tenderness Neurological exam: Present: alert Skin exam: Present: warm, dry, intact, normal color. Absent: rash Course Vital Signs 07/04/16 07/04/16 07/04/16 08:12 08:55 09:11 Temperature 99.0 F Pulse Rate 70 66 Respiratory 20 20 17 Rate Blood Pressure 169/77 153/74 O2 Sat by Pulse 90 L 95 Oximetry 07/04/16 07/04/16 07/04/16 11:15 12:48 12:54 Temperature 99.2 F 98.9 F Pulse Rate 73 74 75 Respiratory 22 20 22 Rate Blood Pressure 135/70 145/68 144/70 O2 Sat by Pulse 92 L 93 L 92 L Oximetry 07/04/16 07/04/16 07/04/16 13:04 13:34 13:50 Temperature 98.8 F 98.8 F 98.8 F Pulse Rate 74 73 74 Respiratory 22 18 18 Rate Blood Pressure 145/72 140/71 147/69 O2 Sat by Pulse 94 L 95 94 L Oximetry 07/04/16 07/04/16 07/04/16 14:27 15:05 15:35 Temperature 98.9 F 98.3 F Pulse Rate 73 69 69 Respiratory 16 16 18 Rate Blood Pressure 147/77 138/70 142/68 O2 Sat by Pulse 94 L 95 94 L Oximetry 07/04/16 07/04/16 07/04/16 16:05 16:19 17:00 Temperature 99.9 F H 99.9 F H 99.8 F H Pulse Rate 79 78 69 Respiratory 18 18 18 Rate Blood Pressure 149/75 151/75 155/64 O2 Sat by Pulse 94 L 94 L 94 L Oximetry Medical Decision Making - Lab Data Result diagrams: 07/04/16 09:08 07/04/16 09:08 Lab Results 07/04/16 07/04/16 07/04/16 Range/Units 09:08 09:08 09:08 WBC 6.9 (3.8-10.6) k/uL RBC 2.33 L (4.30-5.90) m/uL Hgb 6.8 L* D (13.0-17.5) gm/dL Hct 22.8 L (39.0-53.0) % MCV 97.8 (80.0-100.0) fL MCH 29.1 (25.0-35.0) pg MCHC 29.8 L (31.0-37.0) g/dL RDW 15.7 H (11.5-15.5) % Plt Count 404 (150-450) k/uL Neutrophils % 77 % Lymphocytes % 10 % Monocytes % 7 % Eosinophils % 4 % Basophils % 1 % Neutrophils # 5.3 (1.3-7.7) k/uL Lymphocytes # 0.7 L (1.0-4.8) k/uL Monocytes # 0.5 (0-1.0) k/uL Eosinophils # 0.3 (0-0.7) k/uL Basophils # 0.0 (0-0.2) k/uL Hypochromasia Marked Macrocytosis Slight PT (9.0-12.0) sec INR (<1.1) APTT (22.0-30.0) sec D-Dimer (<0.60) mg/L FEU Sodium 138 (137-145) mmol/L Potassium 4.9 (3.5-5.1) mmol/L Chloride 104 (98-107) mmol/L Carbon Dioxide 22 (22-30) mmol/L Anion Gap 12 mmol/L BUN 65 H (9-20) mg/dL Creatinine 5.89 H* (0.66-1.25) mg/dL Est GFR (MDRD) Af Amer 12 (>60 ml/min/1.73 sqM) Est GFR (MDRD) Non-Af 10 (>60 ml/min/1.73 sqM) Glucose 102 H (74-99) mg/dL Calcium 8.2 L (8.4-10.2) mg/dL Magnesium 1.2 L (1.6-2.3) mg/dL Total Bilirubin 0.6 (0.2-1.3) mg/dL AST 38 (17-59) U/L ALT 54 (21-72) U/L Alkaline Phosphatase 254 H (38-126) U/L Total Creatine Kinase 45 L (55-170) U/L CK-MB (CK-2) 0.7 (0.0-2.4) ng/mL CK-MB (CK-2) Rel Index 1.6 Troponin I 0.012 (0.000-0.034) ng/mL NT-Pro-B Natriuret Pep pg/mL Total Protein 6.3 (6.3-8.2) g/dL Albumin 2.4 L (3.5-5.0) g/dL Blood Type Blood Type Recheck Antibody Screen Crossmatch Spec Expiration Date 07/04/16 07/04/16 07/04/16 Range/Units 09:08 09:08 10:45 WBC (3.8-10.6) k/uL RBC (4.30-5.90) m/uL Hgb (13.0-17.5) gm/dL Hct (39.0-53.0) % MCV (80.0-100.0) fL MCH (25.0-35.0) pg MCHC (31.0-37.0) g/dL RDW (11.5-15.5) % Plt Count (150-450) k/uL Neutrophils % % Lymphocytes % % Monocytes % % Eosinophils % % Basophils % % Neutrophils # (1.3-7.7) k/uL Lymphocytes # (1.0-4.8) k/uL Monocytes # (0-1.0) k/uL Eosinophils # (0-0.7) k/uL Basophils # (0-0.2) k/uL Hypochromasia Macrocytosis PT 11.7 (9.0-12.0) sec INR 1.2 (<1.1) APTT 29.9 (22.0-30.0) sec D-Dimer 5.45 H (<0.60) mg/L FEU Sodium (137-145) mmol/L Potassium (3.5-5.1) mmol/L Chloride (98-107) mmol/L Carbon Dioxide (22-30) mmol/L Anion Gap mmol/L BUN (9-20) mg/dL Creatinine (0.66-1.25) mg/dL Est GFR (MDRD) Af Amer (>60 ml/min/1.73 sqM) Est GFR (MDRD) Non-Af (>60 ml/min/1.73 sqM) Glucose (74-99) mg/dL Calcium (8.4-10.2) mg/dL Magnesium (1.6-2.3) mg/dL Total Bilirubin (0.2-1.3) mg/dL AST (17-59) U/L ALT (21-72) U/L Alkaline Phosphatase (38-126) U/L Total Creatine Kinase (55-170) U/L CK-MB (CK-2) (0.0-2.4) ng/mL CK-MB (CK-2) Rel Index Troponin I (0.000-0.034) ng/mL NT-Pro-B Natriuret Pep 99482 pg/mL Total Protein (6.3-8.2) g/dL Albumin (3.5-5.0) g/dL Blood Type A Positive Blood Type Recheck No Antibody Screen NEGATIVE Crossmatch See Detail Spec Expiration Date 07/07/2016 - 2345 - EKG Data -: EKG Interpreted by Pr EKG shows normal: sinus rhythm, axis, intervals (OK interval is 224 ms, consistent with first-degree AV block), QRS complexes, ST-T waves (Normal) Rate: normal (Rate proximal was 71 bpm) Critical Care Time Critical Care Time: Yes (35 minutes) Disposition Clinical Impression: Chronic renal failure, Congestive heart failure, Anemia Disposition: ADMITTED IP TO THIS [facility] Condition: Serious
[2016-07-04] MEDS ORDERED: IV VANCOMYCIN PER PHARMACY 1 EACH MISC MISCELLANE PRN (09:03)
[2016-07-04] MEDS ORDERED: PIPERACILLIN-TAZOBACTAM 3.375 GM in DEXTROSE/WATER 1 50ML.BAG IVPB STA (09:04)
--- NOTE | 2016-07-04 09:04 | XR ---
EXAMINATION TYPE: XR chest 1V portable DATE OF EXAM: 07/04/2016 8:54 AM COMPARISON: 06/25/2016 HISTORY: Shortness of breath FINDINGS: There are bilateral pleural effusions with cardiomegaly and bibasilar infiltrate. There is a diffuse interstitial pattern. IMPRESSION: 1. Correlate for CHF with pulmonary edema. Otherwise consider diffuse pneumonia.
[2016-07-04 09:30] LABS: Basophils % (A) 1 %; CH 29.2; Eosinophils # (A) 0.3 k/uL (0-0.7); Eosinophils % (A) 4 %; HCT 22.8 % (39.0-53.0); HDW 3.12; Hypochromasia Marked; Luc # (Auto) 0.16; Luc % (Auto) 2; Lymphocytes # (A) 0.7 k/uL (1.0-4.8); Lymphocytes % (A) 10 %; MCH 29.1 pg (25.0-35.0); MCHC 29.8 g/dL (31.0-37.0); MCV 97.8 fL (80.0-100.0); Macrocytosis Slight; Mean Platelet Volume 6.6; Monocytes # (A) 0.5 k/uL (0-1.0); Monocytes % (A) 7 %; Neutrophils # (A) 5.3 k/uL (1.3-7.7); Neutrophils % (A) 77 %; RBC 2.33 m/uL (4.30-5.90); RDW 15.7 % (11.5-15.5); WBC 6.9 k/uL (3.8-10.6); WBC (Perox) 7.25
[2016-07-04 09:33] LABS: HGB 6.8 gm/dL (13.0-17.5)
[2016-07-04 09:39] LABS: Calcium 8.2 mg/dL (8.4-10.2); Magnesium 1.2 mg/dL (1.6-2.3); Potassium 4.9 mmol/L (3.5-5.1); Total Bilirubin 0.6 mg/dL (0.2-1.3); Total Protein 6.3 g/dL (6.3-8.2)
[2016-07-04] MEDS ORDERED: NITROGLYCERIN OINT 1 INCH/GM PACKET TOPICAL STA (09:45)
[2016-07-04] MEDS ORDERED: FUROSEMIDE 10 MG/ML 4 ML VIAL IV STA ×2 (09:45→11:15)
[2016-07-04 09:53] LABS: Creatine Kinase MB 0.7 ng/mL (0.0-2.4); Troponin I 0.012 ng/mL (0.000-0.034)
[2016-07-04 09:56] LABS: INR 1.2 (<1.1); Partial Thromboplastin Time 29.9 sec (22.0-30.0); Prothrombin Time 11.7 sec (9.0-12.0)
[2016-07-04] MEDS ORDERED: VANCOMYCIN 2,250 MG in SODIUM CHLORIDE 0.9% 500 ML IVPB ONE (10:00)
--- NOTE | 2016-07-04 10:25 | US ---
EXAMINATION TYPE: US venous doppler duplex LE DATE OF EXAM: 07/04/2016 10:10 AM COMPARISON: Prior on PACs CLINICAL HISTORY: R/O DVT. Difficulty breathing, below knee amputee on Left leg SIDE PERFORMED: Bilateral VESSELS IMAGED: External Iliac Vein (EIV) Common Femoral Vein Deep Femoral Vein Greater Saphenous Vein * Femoral Vein Popliteal Vein Small Saphenous Vein * Proximal Calf Veins (* superficial vessels) TECHNOLOGIST IMPRESSION: wnl as seen. Below knee amputee on Left leg, limited due to bandaged area. Findings: There is normal compressibility and spontaneous flow bilaterally. IMPRESSION: 1. No evidence of DVT
[2016-07-04 11:54] LABS: Amorphous Sediment,Urine Rare /hpf; Appearance,Urine Cloudy (Clear); Bilirubin,Urine Negative (Negative); Glucose,Urine (UA) 1+ (Negative); Ketones,Urine Negative (Negative); Leukocyte Esterase,Urine Negative (Negative); Mucus,Urine Rare /hpf; Nitrite,Urine Negative (Negative); PH, Urine 5.5 (5.0-8.0); Particle Count 3189; Protein,Urine 2+ (Negative); RBC,Urine <1 /hpf (0-5); Specific Gravity,Urine 1.008 (1.001-1.035); UA Billing (MACRO vs. MICRO) MICRO; Urobilinogen,Urine <2.0 mg/dL (<2.0); WBC,Urine 1 /hpf (0-5)
[2016-07-04] MEDS ORDERED: traMADol 50 MG TAB PO STA (15:46)
[2016-07-04] MEDS ORDERED: traMADol 50 MG TAB PO SCH (18:00)
[2016-07-04] MEDS: HEPARIN SODIUM,PORCINE 5,000 UNIT/ML 1 ML VIAL SQ SCH (18:42)
[2016-07-04] MEDS ORDERED: traMADol 50 MG TAB PO PRN (19:56)
[2016-07-04] MEDS: IPRATROPIUM-ALBUTEROL 3 ML NEB INHALATION SCH (20:11)
[2016-07-04 21:18] LABS: Glucose,Whole Blood 103 mg/dL (75-99)
[2016-07-04] MEDS: ALLOPURINOL 100 MG TAB PO SCH (22:11)
[2016-07-04] MEDS: INSULIN LISPRO (humaLOG) 300 UNIT/3 ML VIAL SQ SCH (22:12)
[2016-07-04] MEDS: DOXYCYCLINE 50 MG CAP PO SCH (22:12)
[2016-07-04] MEDS: PRAZOSIN 1 MG CAP PO SCH (22:12)
[2016-07-04] MEDS: amLODIPine 5 MG TAB PO SCH (22:12)
[2016-07-04] MEDS: SODIUM BICARBONATE TAB 650 MG TAB PO SCH (22:13)
[2016-07-04] MEDS: CALCIUM ACETATE 667 MG CAP PO SCH (22:13)
[2016-07-04] MEDS: FUROSEMIDE 10 MG/ML 10 ML VIAL IV SCH (22:32)
[2016-07-05] MEDS: HEPARIN SODIUM,PORCINE 5,000 UNIT/ML 1 ML VIAL SQ SCH ×4 (01:24→17:03)
[2016-07-05 06:11] LABS: Glucose,Whole Blood 109 mg/dL (75-99)
[2016-07-05] MEDS: CARVEDILOL 12.5 MG TAB PO SCH ×2 (06:40→17:06)
[2016-07-05] MEDS: INSULIN LISPRO (humaLOG) 300 UNIT/3 ML VIAL SQ SCH ×4 (06:40→22:10)
[2016-07-05] MEDS: IPRATROPIUM-ALBUTEROL 3 ML NEB INHALATION SCH ×4 (07:43→20:04)
--- NOTE | 2016-07-05 09:02 | P.NPCON ---
History of Present Illness - Reason for Consult chronic renal failure - History of Present Illness Reason for consultation: Chronic kidney disease History of present illness: Patient is a 51-year-old male seen in renal consultation for chronic kidney disease. Patient has chronic kidney disease stage V and has been refusing any forms of renal replacement therapy. Patient was recently admitted and was discharged last week after he had left [id number] amputation for a nonhealing ulcer. He was at rehab and progressively became more dyspneic. His hemoglobin was found to be 6.8 on admission for which she did receive 1 unit of packed red blood cell transition. His chest x-ray did reveal fluid overload. He is currently maintained on IV Lasix 80 mg twice daily. He is nonoliguric. Overall feeling better since admission. No vomiting or diarrhea. Appetite is good. No other complaints at this time. Vital signs are stable. General: The patient appeared well nourished and normally developed. HEENT: Head exam is unremarkable. Neck is without jugular venous distension. LUNGS: Lungs are clear to auscultation and percussion. Breath sounds decreased. HEART: Rate and Rhythm are regular. First and second heart sounds normal. No murmurs, rubs or gallops. ABDOMEN: Abdominal exam reveals normal bowel sounds. Non-tender and non- distended. No evidence of peritonitis. EXTREMITITES: No clubbing, cyanosis, or edema. Left below the knee amputation noted. No obvious drainage from wound dressing. Past Medical History Past Medical History: Diabetes Mellitus, Eye Disorder, Hypertension Additional Past Medical History / Comment(s): chronic kidney disease stage 4- past hemodialysis for about 45 days-now refusing, NIDDM type II diet controlled , cardiomegaly, L pleural effusions with thoracentesis, bone mineral dx, anemia , hypothyroidism, L eye astigmatism, R femur fx as child with body cast. History of Any Multi-Drug Resistant Organisms: MRSA Date of last positivie culture/infection: 06/23/16 MDRO Source:: Left Foot Past Surgical History: No Surgical Hx Reported Additional Past Surgical History / Comment(s): L sided thoracentesis x 3. Past Anesthesia/Blood Transfusion Reactions: No Reported Reaction Additional Past Anesthesia/Blood Transfusion Reaction / Comment(s): Pt has never had anesthesia. Past Psychological History: No Psychological Hx Reported Additional Psychological History / Comment(s): Pt resides alone. He can stand and pivot to wheelchair. He lives in [facility]. He uses the bus to get places. Smoking Status: Never smoker Past Alcohol Use History: Occasional Past Drug Use History: None Reported - Past Family History Father Family Medical History: Cancer Additional Family Medical History / Comment(s): NON HODGKINS LYNPHOMA. Father at the age of 50 from chemo treatment to get ready for bone marrow transplant. Mother Family Medical History: Cancer Additional Family Medical History / Comment(s): BREAST CANCER SURVIVOR. Medications and Allergies Home Medications Medication Instructions Recorded Confirmed Type Calcium Acetate [PhosLo] 667 mg PO TID 03/14/14 07/04/16 History Thyroid,Pork [[place] Thyroid] 60 mg PO DAILY 03/14/14 07/04/16 History Febuxostat [Uloric] 40 mg PO HS 05/23/15 07/04/16 History Thyroid,Pork [[place] Thyroid] 15 mg PO DAILY 05/23/15 07/04/16 History amLODIPine BESYLATE [Norvasc] 5 mg PO HS 06/23/16 07/04/16 History Carvedilol [Coreg] 25 mg PO BID 07/04/16 07/04/16 History Doxycycline Hyclate [Vibramycin] 200 mg PO Q12H 07/04/16 07/04/16 History Ipratropium-Albuterol Nebulize 3 ml INHALATION RT-QID 07/04/16 07/04/16 History [Duoneb 0.5 mg-3 mg/3 ml Soln] Allergies Allergy/AdvReac Type Severity Reaction Status Date / Time No Known Allergies Allergy Verified 07/04/16 11:26 Physical Exam Vitals: Vital Signs Temp Pulse Pulse Pulse Resp BP BP 07/05/16 07:59 76 07/05/16 07:45 72 07/05/16 04:00 97.0 F L 61 18 147/73 07/05/16 00:00 64 18 143/78 07/04/16 20:20 75 07/04/16 20:12 75 07/04/16 20:00 98.1 F 70 18 140/72 07/04/16 17:28 100.5 F H 75 134/78 07/04/16 17:00 99.8 F H 69 18 155/64 07/04/16 16:19 99.9 F H 78 18 151/75 07/04/16 16:05 99.9 F H 79 18 149/75 07/04/16 15:35 98.3 F 69 18 142/68 07/04/16 15:05 69 16 138/70 07/04/16 14:27 98.9 F 73 16 147/77 07/04/16 13:50 98.8 F 74 18 147/69 07/04/16 13:34 98.8 F 73 18 140/71 07/04/16 13:04 98.8 F 74 22 145/72 07/04/16 12:54 98.9 F 75 22 144/70 07/04/16 12:48 99.2 F 74 20 145/68 07/04/16 11:57 100.5 F H 75 134/78 Pulse Ox 07/05/16 07:59 07/05/16 07:45 07/05/16 04:00 96 07/05/16 00:00 97 07/04/16 20:20 07/04/16 20:12 07/04/16 20:00 92 L 07/04/16 17:28 92 L 07/04/16 17:00 94 L 07/04/16 16:19 94 L 07/04/16 16:05 94 L 07/04/16 15:35 94 L 07/04/16 15:05 95 07/04/16 14:27 94 L 07/04/16 13:50 94 L 07/04/16 13:34 95 07/04/16 13:04 94 L 07/04/16 12:54 92 L 07/04/16 12:48 93 L 07/04/16 11:57 92 L Intake and Output 07/04/16 07/05/16 07/05/16 22:59 06:59 14:59 Intake Total 310 600 90 Output Total 400 1700 Balance -90 -1100 90 Intake: Oral 600 90 Blood Product 310 Rc As-1 Unit 310 [id number] Output: Urine 400 1700 Other: Voiding Method Urinal Urinal # Voids 1 Weight 168.5 kg Results - Lab Results Most recent lab results Calcium 8.2 mg/dL (8.4-10.2) L 07/04/16 09:08 Magnesium 1.2 mg/dL (1.6-2.3) L 07/04/16 09:08 07/04/16 09:08 07/04/16 09:08 Assessment and Plan Plan: Assessment: #1. Chronic kidney disease stage V secondary to nephrosclerosis. #2. Status post left ulimt-ydk-[id number] amputation in June 2016. #3. Symptomatically anemia. Patient did receive 1 unit of packed red blood cell transition. #4. Pulmonary edema. #5. Chronic kidney disease mineral bone disease. Plan: I will increase Lasix to 80 mg IV every 8 hours. Monitor hemoglobin and transfuse as needed. Avoid nephrotoxic agents and hypotensive episodes. Check phosphorus level. Repeat electrolytes in the morning. Patient continues to refuse any forms of renal replacement therapy. Thank you for the consultation. I will continue to follow the patient with you during his hospital stay.
[2016-07-05] MEDS: FUROSEMIDE 10 MG/ML 10 ML VIAL IV SCH ×3 (09:26→17:07)
[2016-07-05] MEDS: CIPROFLOXACIN HCL 500 MG TAB PO SCH (09:38)
[2016-07-05] MEDS: SODIUM BICARBONATE TAB 650 MG TAB PO SCH ×2 (09:38→22:08)
[2016-07-05] MEDS: CALCIUM ACETATE 667 MG CAP PO SCH ×3 (09:38→22:09)
[2016-07-05] MEDS: THYROID, PORK 30 MG TAB PO SCH ×2 (09:39)
[2016-07-05] MEDS: PRAZOSIN 1 MG CAP PO SCH ×2 (09:39→22:08)
[2016-07-05] MEDS: DOXYCYCLINE 50 MG CAP PO SCH ×2 (09:39→22:08)
--- NOTE | 2016-07-05 10:11 | HP ---
DATE OF ADMISSION: 07/04/16. PRESENTING COMPLAINT: Short of breath., HISTORY OF PRESENTING COMPLAINT: This is a pleasant 51-year-old patient who unfortunately has advanced renal disease. Patient was discharged from the hospital on 06/29/2016 when he developed left calcaneus osteomyelitis with abscess and had undergone a left below-knee amputation, growing MRSA and Proteus mirabilis. The patient has underlying stage 5 disease with nephrosclerosis and does not want any renal replacement treatment. The patient also has chronic congestive heart failure from diastolic dysfunction, hypertensive heart disease, secondary hyperparathyroidism and metabolic alkalosis, acidosis. Patient's last night became more short of breath, given some Lasix here and made some urine, doing a shade better lying in bed. REVIEW OF SYSTEMS: CONSTITUTIONAL: Tired. HEENT: None. RESPIRATORY: As above. CARDIOVASCULAR: As above. GASTROINTESTINAL: None. GENITOURINARY: None. MUSCULOSKELETAL: Left below-knee amputation some pain in the stump. HEMATOLOGIC: None. LYMPHATICS: None. PSYCHIATRY: None. NEUROLOGICAL: None. Past medical history of left ankle osteomyelitis leading to a left below-knee amputation. MRSA. Stage 5 kidney disease secondary to nephrosclerosis. Morbid Obesity. Congestive heart failure, diastolic. Hypertensive heart disease. Secondary hyperparathyroidism. Metabolic acidosis. PAST SURGICAL HISTORY: Left below-knee amputation. Left sided thoracentesis. SOCIAL HISTORY: The patient currently is at [facility]. No smoking, alcohol occasionally. FAMILY HISTORY: Non- Hodgkin's Lymphoma. HOME MEDICATIONS: Ultram 100 mg p.o. q.6 p.r.n. Norvasc 5 mg p.o. q.h.s. [place] thyroid 75 mg p.o. daily. Sodium bicarb 1,300 mg p.o. b.i.d. Prazosin 2 mg p.o. b.i.d., DuoNeb q.i.d., ( ) 40 mg p.o. q.h.s. doxycycline 200 mg p.o. q.12, Cipro 500 mg p.o. daily. Coreg 25 mg p.o. b.i.d. PhosLo 1 tablet p.o. t.i.d. ALLERGIES: None. PHYSICAL EXAMINATION: On examination vital signs at present, temperature 99, pulse 70, respiration 20, blood pressure 150/77, pulse ox 90% on 6 liters. This gentleman is morbidly obese. ( ) leg in bed, not in distress. EYES: Pupils equal. Conjunctivae normal. JVD unable to assess. CARDIOVASCULAR: First and second heart sound normal. Minimal edema. ABDOMEN: Distended, liver and spleen not palpable. LYMPHATIC: No lymph node palpable. PSYCHIATRY: Alert and oriented times three, normal. EXTREMITIES: Left below-knee amputation with dressing in a stump. INVESTIGATIONS: : White count 6.9, hemoglobin 6.8, potassium 4.9. ( ) 655, creatinine 5.89, BUN 65, creatinine 5.89, it was 58 and 4.9 on 06/29/16. Chest x-ray shows pulmonary edema. EKG shows some premature ventricular contractions. ASSESSMENT: 1. Acute on chronic congestive heart failure from diastolic dysfunction, ejection fraction not known. 2. Recent left below-knee amputation. 3. Stage 5 ( ) secondary to nephrosclerosis. Until now the patient does not want renal replacement therapy. 4. Morbid obesity body mass index more than 50. 5. Hypertensive heart disease. 6. Secondary hyperparathyroidism, secondary to chronic kidney disease. 7. Metabolic acidosis renal disease. PLAN: The patient will get IV Lasix, did talk to the patient to consider yet again renal replacement therapy and see how he does. Patient said he will give a consideration to that. In the meantime patient will be put on IV Lasix. Home medications are resumed, prognosis overall is guarded.
[2016-07-05 11:27] LABS: Hemoglobin A1C 6.6 % (4.2-6.1)
[2016-07-05] MEDS: MAGNESIUM SULFATE-D5W PMX 1 GM in DEXTROSE/WATER 1 100ML.BAG IVPB SCH ×2 (11:50→13:36)
[2016-07-05 12:04] LABS: Glucose,Whole Blood 115 mg/dL (75-99)
--- NOTE | 2016-07-05 14:32 | P.CRDCN ---
<Jess Haro E - Last Filed: 07/05/16 14:14> History of Present Illness Consult date: 07/05/16 Requesting physician: Fredrick Rasheed Consult reason: congestive heart failure Chief complaint: Shortness of breath History of present illness: This is a pleasant 51-year-old gentleman with history of hypertension , diabetes, hyperlipidemia, chronic kidney disease stage IV, who states he underwent dialysis approximately 3 years ago. Then he has refused any further dialysis. Recently the patient was in the hospital earlier this month because of a nonhealing ulcer, subsequent to that he underwent a left below the knee amputation. He presented to the hospital on this admission with symptoms of shortness of breath. Hemoglobin on admission 6.8, creatinine 5.8, BUN 65, potassium 4.9, magnesium level I.2, troponin 0.012, BNP level 22,800.EKG shows normal sinus rhythm with first-degree AV block and occasional PVC. Chest x-ray shows congestive heart failure and pulmonary edema. Venous duplex study did not reveal any evidence of a DVT. Patient was initiated on IV Lasix, he's been diuresing well overall. Weight is down 1 kg. He does state that his breathing is improved from admission here. Patient did receive a blood transfusion. Past Medical History Past Medical History: Diabetes Mellitus, Eye Disorder, Hypertension Additional Past Medical History / Comment(s): chronic kidney disease stage 4- past hemodialysis for about 45 days-now refusing, NIDDM type II diet controlled , cardiomegaly, L pleural effusions with thoracentesis, bone mineral dx, anemia , hypothyroidism, L eye astigmatism, R femur fx as child with body cast. History of Any Multi-Drug Resistant Organisms: MRSA Date of last positivie culture/infection: 06/23/16 MDRO Source:: Left Foot Past Surgical History: No Surgical Hx Reported Additional Past Surgical History / Comment(s): L sided thoracentesis x 3. Past Anesthesia/Blood Transfusion Reactions: No Reported Reaction Additional Past Anesthesia/Blood Transfusion Reaction / Comment(s): Pt has never had anesthesia. Past Psychological History: No Psychological Hx Reported Additional Psychological History / Comment(s): Pt resides alone. He can stand and pivot to wheelchair. He lives in [facility]. He uses the bus to get places. Smoking Status: Never smoker Past Alcohol Use History: Occasional Past Drug Use History: None Reported - Past Family History Father Family Medical History: Cancer Additional Family Medical History / Comment(s): NON HODGKINS LYNPHOMA. Father at the age of 50 from chemo treatment to get ready for bone marrow transplant. Mother Family Medical History: Cancer Additional Family Medical History / Comment(s): BREAST CANCER SURVIVOR. Medications and Allergies Home Medications Medication Instructions Recorded Confirmed Type Calcium Acetate [PhosLo] 667 mg PO TID 03/14/14 07/04/16 History Thyroid,Pork [[place] Thyroid] 60 mg PO DAILY 03/14/14 07/04/16 History Febuxostat [Uloric] 40 mg PO HS 05/23/15 07/04/16 History Thyroid,Pork [[place] Thyroid] 15 mg PO DAILY 05/23/15 07/04/16 History amLODIPine BESYLATE [Norvasc] 5 mg PO HS 06/23/16 07/04/16 History Carvedilol [Coreg] 25 mg PO BID 07/04/16 07/04/16 History Doxycycline Hyclate [Vibramycin] 200 mg PO Q12H 07/04/16 07/04/16 History Ipratropium-Albuterol Nebulize 3 ml INHALATION RT-QID 07/04/16 07/04/16 History [Duoneb 0.5 mg-3 mg/3 ml Soln] Allergies Allergy/AdvReac Type Severity Reaction Status Date / Time No Known Allergies Allergy Verified 07/04/16 11:26 Physical Exam Vitals: Vital Signs Temp Pulse Pulse Pulse Resp BP BP 07/05/16 12:11 98.2 F 60 61 18 128/74 07/05/16 11:22 80 07/05/16 11:13 76 07/05/16 09:46 98.1 F 62 61 16 132/70 07/05/16 07:59 76 07/05/16 07:45 72 07/05/16 04:00 97.0 F L 61 18 147/73 07/05/16 00:00 64 18 143/78 07/04/16 20:20 75 07/04/16 20:12 75 07/04/16 20:00 98.1 F 70 18 140/72 07/04/16 17:28 100.5 F H 75 134/78 07/04/16 17:00 99.8 F H 69 18 155/64 01/29/17 16:19 99.9 F H 78 18 151/75 07/04/16 16:05 99.9 F H 79 18 149/75 07/04/16 15:35 98.3 F 69 18 142/68 07/04/16 15:05 69 16 138/70 07/04/16 14:27 98.9 F 73 16 147/77 Pulse Ox 07/05/16 12:11 94 L 07/05/16 11:22 07/05/16 11:13 07/05/16 09:46 93 L 07/05/16 07:59 07/05/16 07:45 07/05/16 04:00 96 07/05/16 00:00 97 07/04/16 20:20 07/04/16 20:12 07/04/16 20:00 92 L 07/04/16 17:28 92 L 07/04/16 17:00 94 L 07/04/16 16:19 94 L 07/04/16 16:05 94 L 07/04/16 15:35 94 L 07/04/16 15:05 95 07/04/16 14:27 94 L Intake and Output 07/04/16 07/05/16 07/05/16 22:59 06:59 14:59 Intake Total 310 600 312 Output Total 400 1700 Balance -90 -1100 312 Intake: Oral 600 312 Blood Product 310 Rc As-1 Unit 310 [id number] Output: Urine 400 1700 Other: Voiding Method Urinal Urinal Urinal # Voids 1 # Bowel Movements 1 Weight 168.5 kg PHYSICAL EXAMINATION: HEENT: Head is atraumatic, normocephalic. Pupils equal, round. Neck is supple. There is no elevated jugular venous pressure. HEART EXAMINATION: Heart S1, S2 normal. No murmur or gallop heard. CHEST EXAMINATION: Lungs reveal diminished air entry to bilateral bases. ABDOMEN: Soft, obese, nontender. Bowel sounds are heard. No organomegaly noted. EXTREMITIES:[ 1+ peripheral pulses to the right lower extremity with 1+ edema, patient had a recent below the knee amputation on the left, dressing in place small amount of sanguinous drainage. NEUROLOGIC patient is awake, alert and oriented -3. . Results 07/04/16 09:08 07/04/16 09:08 Current Medications Generic Name Dose Route Start Last Admin Trade Name Harrison PRN Reason Stop Dose Admin Albuterol/Ipratropium 3 ml 07/04/16 20:00 07/05/16 11:12 Duoneb 0.5 Mg-3 Mg/3 Ml Soln INHALATION 3 ml RT-QID OTONIEL Administration Allopurinol 200 mg 07/04/16 21:00 07/04/16 22:11 Zyloprim PO 200 mg HS OTONIEL Administration Amlodipine Besylate 5 mg 07/04/16 21:00 07/04/16 22:12 Norvasc PO 5 mg HS OTONIEL Administration Calcium Acetate 667 mg 07/04/16 22:00 07/05/16 09:38 Phoslo PO 667 mg TID OTONIEL Administration Carvedilol 25 mg 07/05/16 07:30 07/05/16 06:40 Coreg PO 25 mg AC-BID OTONIEL Administration Ciprofloxacin 500 mg 07/05/16 09:00 07/05/16 09:38 Cipro PO 500 mg DAILY OTONIEL Administration Doxycycline Monohydrate 200 mg 07/04/16 21:00 07/05/16 09:39 Vibramycin PO 200 mg Q12HR OTONIEL Administration Furosemide 80 mg 07/05/16 10:00 07/05/16 09:40 Lasix IV 80 mg Q8HR OTONIEL Administration Heparin Sodium (Porcine) 5,000 unit 07/04/16 16:00 07/05/16 09:25 Heparin SQ Not Given Q8HR OTONIEL Vancomycin HCl 2,000 mg/ 500 mls @ 167 mls/hr 07/05/16 16:00 Sodium Chloride IVPB 07/05/16 18:59 ONCE ONE Insulin Human Lispro 0 unit 07/04/16 21:00 07/05/16 12:14 Humalog SQ Not Given ACHS [facility] Protocol Miscellaneous Information 1 each 07/04/16 09:03 Pharmacy To Dose Iv Vancomycin MISCELLANE DIRECTED PRN Per Protocol Prazosin HCl 2 mg 07/04/16 21:00 07/05/16 09:39 Minipress PO 2 mg BID OTONIEL Administration Sodium Bicarbonate 1,300 mg 07/04/16 21:00 07/05/16 09:38 Sodium Bicarbonate Tab PO 1,300 mg BID OTONIEL Administration Sodium Chloride 10 ml 07/04/16 21:00 07/05/16 09:40 Saline Flush IV 10 ml BID OTONIEL Administration Thyroid 15 mg 07/05/16 09:00 07/05/16 09:39 [place] Thyroid PO 15 mg DAILY OTONIEL Administration Thyroid 60 mg 07/05/16 09:00 07/05/16 09:39 [place] Thyroid PO 60 mg DAILY OTONIEL Administration Tramadol HCl 100 mg 07/04/16 19:56 Ultram PO Q6H PRN Pain Intake and Output 07/04/16 07/05/16 07/05/16 22:59 06:59 14:59 Intake Total 310 600 312 Output Total 400 1700 Balance -90 -1100 312 Intake: Oral 600 312 Blood Product 310 Rc As-1 Unit 310 [id number] Output: Urine 400 1700 Other: Voiding Method Urinal Urinal Urinal # Voids 1 # Bowel Movements 1 Weight 168.5 kg EKG Interpretations (text) EKG shows normal sinus rhythm with a first-degree AV block. Assessment and Plan Plan: Assessment and plan #1 congestive cardiac failure, patient has been reported to have a normal LV function in the past, we will repeat an echo. #2 chronic kidney disease stage IV #3 status post left below the knee amputation #4 hypertension #5 diabetes #6 hyperlipidemia #7 anemia Plan We will obtain an echocardiogram with Doppler study to assess the patient's LV function. We will also recommend to continue current dose of IV Lasix. Monitor intake and output along with daily weights daily lytes BUN and creatinine and daily CBC. DNP note has been reviewed, I agree with a documented findings and plan of care. Patient was seen and examined. <Almas Lutz - Last Filed: 07/05/16 16:43> Physical Exam Vitals: Vital Signs Temp Pulse Pulse Pulse Resp BP BP 07/05/16 12:11 98.2 F 60 61 18 128/74 07/05/16 11:22 80 07/05/16 11:13 76 07/05/16 09:46 98.1 F 62 61 16 132/70 07/05/16 07:59 76 07/05/16 07:45 72 07/05/16 04:00 97.0 F L 61 18 147/73 07/05/16 00:00 64 18 143/78 07/04/16 20:20 75 07/04/16 20:12 75 07/04/16 20:00 98.1 F 70 18 140/72 07/04/16 17:28 100.5 F H 75 134/78 07/04/16 17:00 99.8 F H 69 18 155/64 Pulse Ox 07/05/16 12:11 94 L 07/05/16 11:22 07/05/16 11:13 07/05/16 09:46 93 L 07/05/16 07:59 07/05/16 07:45 07/05/16 04:00 96 07/05/16 00:00 97 07/04/16 20:20 07/04/16 20:12 07/04/16 20:00 92 L 07/04/16 17:28 92 L 07/04/16 17:00 94 L Intake and Output 07/05/16 07/05/16 07/05/16 06:59 14:59 22:59 Intake Total 600 312 Output Total 1700 Balance -1100 312 Intake: Oral 600 312 Output: Urine 1700 Other: Voiding Method Urinal Urinal # Voids 1 # Bowel Movements 1 Weight 168.5 kg 168.5 kg Patient Weight 07/06/16 06:59 Weight 168.5 kg Results 07/04/16 09:08 07/04/16 09:08 Current Medications Generic Name Dose Route Start Last Admin Trade Name Freq PRN Reason Stop Dose Admin Albuterol/Ipratropium 3 ml 07/04/16 20:00 07/05/16 11:12 Duoneb 0.5 Mg-3 Mg/3 Ml Soln INHALATION 3 ml RT-QID OTONIEL Administration Allopurinol 200 mg 07/04/16 21:00 07/04/16 22:11 Zyloprim PO 200 mg HS OTONIEL Administration Amlodipine Besylate 5 mg 07/04/16 21:00 07/04/16 22:12 Norvasc PO 5 mg HS OTONIEL Administration Calcium Acetate 667 mg 07/04/16 22:00 07/05/16 09:38 Phoslo PO 667 mg TID OTONIEL Administration Carvedilol 25 mg 07/05/16 07:30 07/05/16 06:40 Coreg PO 25 mg AC-BID OTONIEL Administration Ciprofloxacin 500 mg 07/05/16 09:00 07/05/16 09:38 Cipro PO 500 mg DAILY OTONIEL Administration Doxycycline Monohydrate 200 mg 07/04/16 21:00 07/05/16 09:39 Vibramycin PO 200 mg Q12HR OTONIEL Administration Furosemide 80 mg 07/05/16 10:00 07/05/16 09:40 Lasix IV 80 mg Q8HR OTONIEL Administration Heparin Sodium (Porcine) 5,000 unit 07/04/16 16:00 07/05/16 09:25 Heparin SQ Not Given Q8HR OTONIEL Vancomycin HCl 2,000 mg/ 500 mls @ 167 mls/hr 07/05/16 16:00 Sodium Chloride IVPB 07/05/16 18:59 ONCE ONE Insulin Human Lispro 0 unit 07/04/16 21:00 07/05/16 12:14 Humalog SQ Not Given ACHS [facility] Protocol Miscellaneous Information 1 each 07/04/16 09:03 Pharmacy To Dose Iv Vancomycin MISCELLANE DIRECTED PRN Per Protocol Prazosin HCl 2 mg 07/04/16 21:00 07/05/16 09:39 Minipress PO 2 mg BID OTONIEL Administration Sodium Bicarbonate 1,300 mg 07/04/16 21:00 07/05/16 09:38 Sodium Bicarbonate Tab PO 1,300 mg BID OTONIEL Administration Sodium Chloride 10 ml 07/04/16 21:00 07/05/16 09:40 Saline Flush IV 10 ml BID OTONIEL Administration Thyroid 15 mg 07/05/16 09:00 07/05/16 09:39 [place] Thyroid PO 15 mg DAILY OTONIEL Administration Thyroid 60 mg 07/05/16 09:00 07/05/16 09:39 [place] Thyroid PO 60 mg DAILY OTONIEL Administration Tramadol HCl 100 mg 07/04/16 19:56 Ultram PO Q6H PRN Pain Intake and Output 07/05/16 07/05/16 07/05/16 06:59 14:59 22:59 Intake Total 600 312 Output Total 1700 Balance -1100 312 Intake: Oral 600 312 Output: Urine 1700 Other: Voiding Method Urinal Urinal # Voids 1 # Bowel Movements 1 Weight 168.5 kg 168.5 kg Patient Weight 07/06/16 06:59 Weight 168.5 kg
[2016-07-05 14:47] VITALS: BMI 50.3
[2016-07-05] MEDS ORDERED: VANCOMYCIN 2,000 MG in SODIUM CHLORIDE 0.9% 500 ML IVPB ONE (16:00)
[2016-07-05 16:48] LABS: Glucose,Whole Blood 105 mg/dL (75-99)
[2016-07-05 20:36] LABS: Glucose,Whole Blood 134 mg/dL (75-99)
[2016-07-05] MEDS: amLODIPine 5 MG TAB PO SCH (22:09)
[2016-07-05] MEDS: ALLOPURINOL 100 MG TAB PO SCH (22:09)
[2016-07-06] MEDS: FUROSEMIDE 10 MG/ML 10 ML VIAL IV SCH ×3 (00:34→21:04)
[2016-07-06] MEDS: HEPARIN SODIUM,PORCINE 5,000 UNIT/ML 1 ML VIAL SQ SCH ×3 (00:34→16:43)
[2016-07-06 06:08] LABS: Glucose,Whole Blood 110 mg/dL (75-99)
[2016-07-06] MEDS: INSULIN LISPRO (humaLOG) 300 UNIT/3 ML VIAL SQ SCH ×3 (06:28→17:21)
[2016-07-06] MEDS: CARVEDILOL 12.5 MG TAB PO SCH ×2 (06:28→16:44)
--- NOTE | 2016-07-06 06:29 | PN ---
DATE OF SERVICE: 07/05/2016 PRESENTING COMPLAINT: Short of breath. INTERVAL HISTORY: This is a patient with advancing renal disease that does not want renal replacement therapy was with CHF. Getting IV Lasix. Breathing a shade better. Patient does not want renal replacement therapy. Did tolerate his diet. Lying in bed. Review of systems done for constitutional, cardiovascular, GI, pulmonary; relevant findings as above. Current medications include IV Lasix 80 mg q.8. On examination, temperature 98.3, pulse 62, respirations 18, blood pressure 137/71, pulse ox 96% on 5 L. GENERAL APPEARANCE: Lying in bed, flat. EYES: Pupils equal. Conjunctivae normal. NECK: JVD unable to assess. Mass not palpable. RESPIRATORY: Effort increased. LUNGS: Diminished breath sounds. CARDIOVASCULAR: First and second sounds normal. No edema. ABDOMEN: Distended, soft. Liver and spleen not palpable. PSYCHIATRY: Alert and oriented x3. Mood and affect normal. Left below knee amputation. INVESTIGATIONS: Accu-Cheks are noted. ASSESSMENT: 1. Acute on chronic congestive heart failure from diastolic dysfunction. 2. Recent left below-knee amputation. 3. Stage V chronic kidney disease secondary to nephrosclerosis. The patient has declined renal replacement therapy. 4. Morbid obesity, body mass index more than 50. 5. Hypertensive heart disease. 6. Secondary hyperparathyroidism secondary to chronic kidney disease. 7. Metabolic acidosis from renal disease. PLAN: Continue current medication and treatment plan. Two-D echo is pending. Prognosis not good given advancing renal failure. Repeat labs in the morning.
[2016-07-06 07:01] LABS: Basophils # (A) 0.1 k/uL (0-0.2); Basophils % (A) 1 %; CH 29.3; Eosinophils # (A) 0.4 k/uL (0-0.7); Eosinophils % (A) 6 %; HCT 25.6 % (39.0-53.0); HDW 3.24; HGB 7.6 gm/dL (13.0-17.5); Hypochromasia Marked; Luc # (Auto) 0.19; Luc % (Auto) 3; Lymphocytes # (A) 0.8 k/uL (1.0-4.8); Lymphocytes % (A) 11 %; MCH 29.2 pg (25.0-35.0); MCHC 29.7 g/dL (31.0-37.0); MCV 98.1 fL (80.0-100.0); Macrocytosis Slight; Mean Platelet Volume 6.6; Monocytes # (A) 0.5 k/uL (0-1.0); Monocytes % (A) 7 %; Neutrophils # (A) 5.1 k/uL (1.3-7.7); Neutrophils % (A) 72 %; RBC 2.61 m/uL (4.30-5.90); RDW 15.3 % (11.5-15.5)
[2016-07-06 07:06] LABS: Calcium 8.3 mg/dL (8.4-10.2); Phosphorous 6.3 mg/dL (2.5-4.5); Potassium 5.6 mmol/L (3.5-5.1)
[2016-07-06] MEDS: DOXYCYCLINE 50 MG CAP PO SCH ×2 (07:35→21:01)
[2016-07-06] MEDS: CIPROFLOXACIN HCL 500 MG TAB PO SCH (07:36)
[2016-07-06] MEDS: CALCIUM ACETATE 667 MG CAP PO SCH ×3 (07:36→21:03)
[2016-07-06] MEDS: PRAZOSIN 1 MG CAP PO SCH ×2 (07:36→21:02)
[2016-07-06] MEDS: SODIUM BICARBONATE TAB 650 MG TAB PO SCH ×2 (07:36→21:03)
[2016-07-06] MEDS: THYROID, PORK 30 MG TAB PO SCH ×2 (07:37)
[2016-07-06] MEDS: IPRATROPIUM-ALBUTEROL 3 ML NEB INHALATION SCH ×4 (07:48→19:54)
--- NOTE | 2016-07-06 09:32 | P.PN ---
Subjective Patient is seen in follow-up for chronic kidney disease stage V. Patient has been refusing renal replacement therapy. Patient presented with dyspnea. His hemoglobin was 6.8 on admission and he did receive 1 unit of packed red blood cell transfusion. Hemoglobin 7.6 this morning. Dyspnea is improved. Admits to good urine output. Denies chest pain. Vital signs are stable. General: The patient appeared well nourished and normally developed. HEENT: Head exam is unremarkable. Neck is without jugular venous distension. LUNGS: Lungs are clear to auscultation and percussion. Breath sounds decreased. HEART: Rate and Rhythm are regular. First and second heart sounds normal. No murmurs, rubs or gallops. ABDOMEN: Abdominal exam reveals normal bowel sounds. Non-tender and non- distended. No evidence of peritonitis. EXTREMITITES: No clubbing, cyanosis, or edema. Amputation noted. Objective - Vital Signs Vital signs: Vital Signs Temp 98.2 F 07/06/16 07:47 Pulse 76 07/06/16 07:58 Resp 18 07/06/16 07:47 BP 131/79 07/06/16 07:47 Pulse Ox 95 07/06/16 07:47 Intake & Output 07/05/16 07/06/16 07/06/16 18:59 06:59 18:59 Intake Total 1234 400 180 Output Total 1100 2200 Balance 134 -1800 180 Weight 168.5 kg 165 kg Intake: Intake, IV Titration 700 Amount Magnesium Sulfate-D5w Pmx 200 1 gm In Dextrose/Water 1 100ml.bag @ 100 mls/hr IVPB Q1H [facility] Rx#: [id number] Vancomycin 2,000 mg In 500 Sodium Chloride 0.9% 500 ml @ 167 mls/hr IVPB ONCE ONE Rx#:[id number] Oral 534 400 180 Output: Urine 1100 2200 Other: Voiding Method Urinal Urinal Urinal # Bowel Movements 1 1 - Labs CBC & Chem 7: 07/06/16 06:01 07/06/16 06:01 Labs: Abnormal Lab Results - Last 24 Hours (Table) 07/05/16 07/05/16 07/05/16 Range/Units 08:55 12:03 16:46 RBC (4.30-5.90) m/uL Hgb (13.0-17.5) gm/dL Hct (39.0-53.0) % MCHC (31.0-37.0) g/dL Lymphocytes # (1.0-4.8) k/uL Potassium (3.5-5.1) mmol/L BUN (9-20) mg/dL Creatinine (0.66-1.25) mg/dL Glucose (74-99) mg/dL POC Glucose (mg/dL) 115 H 105 H (75-99) mg/dL Hemoglobin A1c 6.6 H (4.2-6.1) % Calcium (8.4-10.2) mg/dL Phosphorus (2.5-4.5) mg/dL 07/05/16 07/06/16 07/06/16 Range/Units 20:35 06:01 06:01 RBC 2.61 L (4.30-5.90) m/uL Hgb 7.6 L (13.0-17.5) gm/dL Hct 25.6 L (39.0-53.0) % MCHC 29.7 L (31.0-37.0) g/dL Lymphocytes # 0.8 L (1.0-4.8) k/uL Potassium 5.6 H (3.5-5.1) mmol/L BUN 73 H (9-20) mg/dL Creatinine 6.10 H* (0.66-1.25) mg/dL Glucose 105 H (74-99) mg/dL POC Glucose (mg/dL) 134 H (75-99) mg/dL Hemoglobin A1c (4.2-6.1) % Calcium 8.3 L (8.4-10.2) mg/dL Phosphorus 6.3 H (2.5-4.5) mg/dL 07/06/16 Range/Units 06:06 RBC (4.30-5.90) m/uL Hgb (13.0-17.5) gm/dL Hct (39.0-53.0) % MCHC (31.0-37.0) g/dL Lymphocytes # (1.0-4.8) k/uL Potassium (3.5-5.1) mmol/L BUN (9-20) mg/dL Creatinine (0.66-1.25) mg/dL Glucose (74-99) mg/dL POC Glucose (mg/dL) 110 H (75-99) mg/dL Hemoglobin A1c (4.2-6.1) % Calcium (8.4-10.2) mg/dL Phosphorus (2.5-4.5) mg/dL Assessment and Plan Plan: Assessment: #1. Chronic kidney disease stage V secondary to nephrosclerosis. #2. Status post left [id number] amputation in June 2016. #3. Symptomatically anemia. Patient did receive 1 unit of packed red blood cell transfusion on July 05. Hemoglobin 7.6 today. #4. Pulmonary edema. #5. Chronic kidney disease mineral bone disease. Plan: I will decrease dose of Lasix to 80 mg IV every 12 hours. Monitor hemoglobin and transfuse as needed. Avoid nephrotoxic agents and hypotensive episodes. Maintain PhosLo with meals. Repeat electrolytes in the morning. Patient continues to refuse any forms of renal replacement therapy.
--- NOTE | 2016-07-06 10:33 | ECHOF ---
Referral Reason:chf MEASUREMENTS -------- HEIGHT: 182.9 cm WEIGHT: 168.3 kg BP: 128/74 RVIDd: 3.4 cm (< 3.3) IVSd: 1.4 cm (0.6 - 1.1) LVIDd: 4.6 cm (3.9 - 5.3) LVPWd: 1.5 cm (0.6 - 1.1) IVSs: 1.9 cm LVIDs: 3.4 cm LVPWs: 1.9 cm LA Diam: 6.3 cm (2.7 - 3.8) LAESV Index (A-L): 33.38 ml/m Ao Diam: 3.7 cm (2.0 - 3.7) AV Cusp: 2.3 cm (1.5 - 2.6) LA Diam: 4.0 cm (2.7 - 3.8) MV E Moi: 1.29 m/s MV DecT: 340 ms MV A Moi: 1.13 m/s MV E/A Ratio: 1.14 RAP: 15.00 mmHg RVSP: 53.76 mmHg FINDINGS -------- Sinus rhythm. This was a technically difficult study with suboptimal views. There is moderate concentric left ventricular hypertrophy. Overall left ventricular systolic function is normal with, an EF between 55 - 60 %. The right ventricle is mildly enlarged. LA is midly dilated 29-33ml/m2. The right atrium is normal in size. 1.5MG OF DEFINITY UTLIZED: 2 OR MORE WALL SEGMENTS NOT VISUALIZED. Aortic valve is trileaflet and is mildly thickened. The mitral valve leaflets are mildly thickened. Mild mitral annular calcification present. There is trace mitral regurgitation. Mild tricuspid regurgitation present. There is moderate pulmonary hypertension. The right ventricular systolic pressure, as measured by Doppler, is 53.76mmHg. The pulmonic valve was not well visualized. The inferior vena cava is dilated with poor inspiratory collapse which is consistent with estimated right atrial pressure of 15 mmHg. There is no pericardial effusion. CONCLUSIONS -------- 1. Sinus rhythm. 2. The mitral valve leaflets are mildly thickened. 3. Mild mitral annular calcification present. 4. There is trace mitral regurgitation. 5. Mild tricuspid regurgitation present. 6. There is moderate pulmonary hypertension. 7. The right ventricular systolic pressure, as measured by Doppler, is 53.76mmHg. 8. The pulmonic valve was not well visualized. 9. The inferior vena cava is dilated with poor inspiratory collapse which is consistent with estimated right atrial pressure of 15 mmHg. 10. There is no pericardial effusion. 11. This was a technically difficult study with suboptimal views. 12. There is moderate concentric left ventricular hypertrophy. 13. Overall left ventricular systolic function is normal with, an EF between 55 - 60 %. 14. The right ventricle is mildly enlarged. 15. LA is midly dilated 29-33ml/m2. 16. The right atrium is normal in size. 17. 1.5MG OF DEFINITY UTLIZED: 2 OR MORE WALL SEGMENTS NOT VISUALIZED. 18. Aortic valve is trileaflet and is mildly thickened. SPEECH AND LANGUAGE SPECIALIST: Spike Thompson RDCS
[2016-07-06] MEDS ORDERED: DARBEPOETIN ALFA 60 MCG/0.3 ML SYRINGE SQ SCH (12:00)
[2016-07-06 12:08] LABS: Glucose,Whole Blood 107 mg/dL (75-99)
--- NOTE | 2016-07-06 15:57 | P.PN ---
Subjective Principal diagnosis: CHF his is a pleasant 51-year-old gentleman with history of hypertension, diabetes, hyperlipidemia, chronic kidney disease stage IV, who states he underwent dialysis approximately 3 years ago. Then he has refused any further dialysis. Recently the patient was in the hospital earlier this month because of a nonhealing ulcer, subsequent to that he underwent a left below the knee amputation. He presented to the hospital on this admission with symptoms of shortness of breath. Hemoglobin on admission 6.8, creatinine 5.8, BUN 65, potassium 4.9, magnesium level I.2, troponin 0.012, BNP level 22,800.EKG shows normal sinus rhythm with first-degree AV block and occasional PVC. Chest x-ray shows congestive heart failure and pulmonary edema. Venous duplex study did not reveal any evidence of a DVT. Patient was initiated on IV Lasix, he's been diuresing well overall. Weight is down 1 kg. He does state that his breathing is improved from admission here. His weight today is down 3 kg. Creatinine 6.1 today. Ataxia 5.6, hemoglobin 7.6. Objective - Vital Signs Vital signs: Vital Signs Temp 98.1 F 07/06/16 11:47 Pulse 72 07/06/16 15:44 Resp 18 07/06/16 11:47 BP 157/88 07/06/16 11:47 Pulse Ox 94 L 07/06/16 11:47 Intake & Output 07/05/16 07/06/16 07/06/16 18:59 06:59 18:59 Intake Total 1234 400 180 Output Total 1100 2200 500 Balance 134 -1800 -320 Weight 168.5 kg 165 kg Intake: Intake, IV Titration 700 Amount Magnesium Sulfate-D5w Pmx 200 1 gm In Dextrose/Water 1 100ml.bag @ 100 mls/hr IVPB Q1H [facility] Rx#: [id number] Vancomycin 2,000 mg In 500 Sodium Chloride 0.9% 500 ml @ 167 mls/hr IVPB ONCE ONE Rx#:[id number] Oral 534 400 180 Output: Urine 1100 2200 500 Other: Voiding Method Urinal Urinal Urinal # Bowel Movements 1 1 1 - Exam PHYSICAL EXAMINATION: HEENT: Head is atraumatic, normocephalic. Pupils equal, round. Neck is supple. There is no elevated jugular venous pressure. HEART EXAMINATION: Heart S1, S2 normal. No murmur or gallop heard. CHEST EXAMINATION: Lungs reveal diminished air entry to bilateral bases. ABDOMEN: Soft, obese, nontender. Bowel sounds are heard. No organomegaly noted. EXTREMITIES:[ 1+ peripheral pulses to the right lower extremity with 1+ edema, patient had a recent below the knee amputation on the left, dressing in place small amount of sanguinous drainage. NEUROLOGIC patient is awake, alert and oriented -3. . - Labs CBC & Chem 7: 07/06/16 06:01 07/06/16 06:01 Labs: Abnormal Lab Results - Last 24 Hours (Table) 07/05/16 07/05/16 07/06/16 Range/Units 16:46 20:35 06:01 RBC (4.30-5.90) m/uL Hgb (13.0-17.5) gm/dL Hct (39.0-53.0) % MCHC (31.0-37.0) g/dL Lymphocytes # (1.0-4.8) k/uL Potassium 5.6 H (3.5-5.1) mmol/L BUN 73 H (9-20) mg/dL Creatinine 6.10 H* (0.66-1.25) mg/dL Glucose 105 H (74-99) mg/dL POC Glucose (mg/dL) 105 H 134 H (75-99) mg/dL Calcium 8.3 L (8.4-10.2) mg/dL Phosphorus 6.3 H (2.5-4.5) mg/dL 07/06/16 07/06/16 07/06/16 Range/Units 06:01 06:06 11:43 RBC 2.61 L (4.30-5.90) m/uL Hgb 7.6 L (13.0-17.5) gm/dL Hct 25.6 L (39.0-53.0) % MCHC 29.7 L (31.0-37.0) g/dL Lymphocytes # 0.8 L (1.0-4.8) k/uL Potassium (3.5-5.1) mmol/L BUN (9-20) mg/dL Creatinine (0.66-1.25) mg/dL Glucose (74-99) mg/dL POC Glucose (mg/dL) 110 H 107 H (75-99) mg/dL Calcium (8.4-10.2) mg/dL Phosphorus (2.5-4.5) mg/dL Assessment and Plan Plan: Assessment and plan #1 diastolic congestive cardiac failure, patient has been reported to have a normal LV function in the past, echocardiogram with Doppler study performed this admission revealed an ejection fraction of 55-60%.. #2 chronic kidney disease stage IV #3 status post left below the knee amputation #4 hypertension #5 diabetes #6 hyperlipidemia #7 anemia Plan We will also recommend to continue current dose of IV Lasix. Monitor intake and output along with daily weights daily lytes BUN and creatinine and daily CBC. DNP note has been reviewed, I agree with a documented findings and plan of care. Patient was seen and examined.
[2016-07-06 17:25] LABS: Glucose,Whole Blood 117 mg/dL (75-99)
[2016-07-06] MEDS: ALLOPURINOL 100 MG TAB PO SCH (21:00)
[2016-07-06] MEDS: amLODIPine 5 MG TAB PO SCH (21:01)
[2016-07-06 21:57] LABS: Glucose,Whole Blood 100 mg/dL (75-99)
[2016-07-07] MEDS: INSULIN LISPRO (humaLOG) 300 UNIT/3 ML VIAL SQ SCH ×5 (00:31→22:00)
[2016-07-07] MEDS: HEPARIN SODIUM,PORCINE 5,000 UNIT/ML 1 ML VIAL SQ SCH ×4 (00:31→17:02)
[2016-07-07 06:21] LABS: Glucose,Whole Blood 99 mg/dL (75-99)
[2016-07-07] MEDS: CARVEDILOL 12.5 MG TAB PO SCH ×2 (06:47→16:53)
--- NOTE | 2016-07-07 07:20 | PN ---
DATE OF SERVICE: 07/06/2016 PRESENTING COMPLAINT: Short of breath. INTERVAL HISTORY: This is a patient with advancing renal disease, did not want any renal replacement therapy with hemodialysis, ( ) a bit. Breathing is stable. Patient again confirms does not want any dialysis. Did tolerate his diet, tired. Review of systems done for constitutional, cardiovascular, GI, pulmonary; relevant findings as above. Current medications are reviewed that include IV Lasix. On examination, temperature 98.1, pulse 82, respirations 16, blood pressure 147/88, pulse ox 94% on 3 L. GENERAL APPEARANCE: Lying in bed, not in distress. EYES: Pupils equal, conjunctivae normal. NECK: JVD unable to assess, mass not palpable. Respiratory effort increased. LUNGS: Diminished breath sounds. CARDIOVASCULAR: First and second sounds normal. No edema. ABDOMEN: Soft, nontender. Liver and spleen not palpable. EXTREMITIES: Left below-knee amputation. INVESTIGATIONS: Hemoglobin 7.6, BUN 73, creatinine 6.10. ASSESSMENT: 1. Acute on chronic congestive heart failure from diastolic dysfunction, ejection fraction 55% to 60% from hypertensive heart disease. 2. Recent left below-knee amputation for calcaneal osteomyelitis. 3. Stage V chronic kidney disease secondary to nephrosclerosis, progressively getting worse. 4. Moderate obesity, body mass index of more than 50. 5. Hypertensive heart disease. 6. Secondary hyperparathyroidism secondary to chronic kidney disease. 7. Metabolic acidosis from renal disease. PLAN: Continue current medication treatment plan on IV Lasix. Advanced care planning: This was discussed with the patient that at this rate he will become encephalopathic and not really able to make any decisions. Patient accepts that. I did talk to him on a DNR CODE STATUS, he is agreeable to proceed with DO NOT RESUSCITATE. I also talked to him about his POWER OF SLEEP TECH and he said that HE wanted his sister to become the POWER OF SLEEP TECH. Will put a consult for social security specialist for the same. He did wanted to express that once his sister takes over the POWER OF SLEEP TECH, he still does not want to be put back on hemodialysis. Discussion for advanced care planning was additional 25 minutes in addition to the progress note.
[2016-07-07] MEDS: IPRATROPIUM-ALBUTEROL 3 ML NEB INHALATION SCH ×4 (08:09→20:05)
[2016-07-07] MEDS: FUROSEMIDE 10 MG/ML 10 ML VIAL IV SCH ×2 (09:05→22:11)
[2016-07-07] MEDS: CALCIUM ACETATE 667 MG CAP PO SCH ×3 (09:06→22:08)
[2016-07-07] MEDS: DOXYCYCLINE 50 MG CAP PO SCH ×2 (09:06→22:08)
[2016-07-07] MEDS: CIPROFLOXACIN HCL 500 MG TAB PO SCH (09:06)
[2016-07-07] MEDS: PRAZOSIN 1 MG CAP PO SCH ×2 (09:07→22:08)
[2016-07-07] MEDS: SODIUM BICARBONATE TAB 650 MG TAB PO SCH ×2 (09:07→22:08)
[2016-07-07] MEDS: THYROID, PORK 30 MG TAB PO SCH ×2 (09:08)
[2016-07-07 11:48] LABS: Glucose,Whole Blood 109 mg/dL (75-99)
--- NOTE | 2016-07-07 12:21 | P.PN ---
Subjective Principal diagnosis: CHF his is a pleasant 51-year-old gentleman with history of hypertension, diabetes, hyperlipidemia, chronic kidney disease stage IV, who states he underwent dialysis approximately 3 years ago. Then he has refused any further dialysis. Recently the patient was in the hospital earlier this month because of a nonhealing ulcer, subsequent to that he underwent a left below the knee amputation. He presented to the hospital on this admission with symptoms of shortness of breath. Hemoglobin on admission 6.8, creatinine 5.8, BUN 65, potassium 4.9, magnesium level I.2, troponin 0.012, BNP level 22,800.EKG shows normal sinus rhythm with first-degree AV block and occasional PVC. Chest x-ray shows congestive heart failure and pulmonary edema. Venous duplex study did not reveal any evidence of a DVT. Patient was initiated on IV Lasix, he's been diuresing well overall. No labs were drawn today. Cardiology's perspective, we 'll continue current medications as instructed by nephrology. We will follow you on an as-needed basis only, please so hesitate to call with any questions. Objective - Vital Signs Vital signs: Vital Signs Temp 97.0 F L 07/07/16 08:00 Pulse 70 07/07/16 12:16 Resp 16 07/07/16 08:00 BP 136/67 07/07/16 08:00 Pulse Ox 93 L 07/07/16 08:00 Intake & Output 07/06/16 07/07/16 07/07/16 18:59 06:59 18:59 Intake Total 420 200 Output Total 1050 1175 600 Balance -630 -1175 -400 Weight 165.5 kg Intake: Oral 420 200 Output: Urine 1050 1175 600 Other: Voiding Method Urinal Urinal # Voids 1 1 # Bowel Movements 1 - Exam PHYSICAL EXAMINATION: HEENT: Head is atraumatic, normocephalic. Pupils equal, round. Neck is supple. There is no elevated jugular venous pressure. HEART EXAMINATION: Heart S1, S2 normal. No murmur or gallop heard. CHEST EXAMINATION: Lungs reveal diminished air entry to bilateral bases. ABDOMEN: Soft, obese, nontender. Bowel sounds are heard. No organomegaly noted. EXTREMITIES:[ 1+ peripheral pulses to the right lower extremity with 1+ edema, patient had a recent below the knee amputation on the left, dressing in place small amount of sanguinous drainage. NEUROLOGIC patient is awake, alert and oriented -3. . - Labs CBC & Chem 7: 07/06/16 06:01 07/06/16 06:01 Labs: Abnormal Lab Results - Last 24 Hours (Table) 07/06/16 07/06/16 07/07/16 Range/Units 16:40 21:23 11:45 POC Glucose (mg/dL) 117 H 100 H 109 H (75-99) mg/dL Assessment and Plan Plan: Assessment and plan #1 diastolic congestive cardiac failure, patient has been reported to have a normal LV function in the past, echocardiogram with Doppler study performed this admission revealed an ejection fraction of 55-60%.. #2 chronic kidney disease stage IV #3 status post left below the knee amputation #4 hypertension #5 diabetes #6 hyperlipidemia #7 anemia Plan We will also recommend to continue current dose of IV Lasix as per nephrology. Monitor intake and output along with daily weights daily lytes BUN and creatinine and daily CBC. We'll follow this patient with you now on an as- needed basis only, please hesitate to call with any questions. DNP note has been reviewed, I agree with a documented findings and plan of care. Patient was seen and examined.
--- NOTE | 2016-07-07 14:53 | PN ---
Patient is seen for followup for CKD stage V. He is currently lying in bed, comfortable, not in any acute distress. Patient has refused renal replacement therapy on multiple occasions previously. On examination, his blood pressure is 136/67, heart rate 74 per minute. He is afebrile. Examination of the heart S1 and S2. Examination of the lungs, bilateral breath sounds are heard. Abdomen is oft, nontender. Examination of lower extremities shows left BKA stump, currently dressed. Right lower extremity shows no significant edema. RETAIL SECURITY PROFESSIONAL exam is grossly intact. Left BKA stump currently dressed. Labs from 07/06 show serum potassium at 5.6, serum creatinine 6.1 mg/dL. ASSESSMENT: 1. Chronic kidney disease stage V with no plans for renal replacement therapy. Patient has refused all kinds of dialysis. It is reasonable to proceed with options of hospice given the significantly advanced renal failure and the hyperkalemia. 2. Anemia, status post packed RBC transfusion, no active bleeding noted. 3. Status post left below knee amputation last month. 4. Hyperkalemia associated with advanced chronic kidney disease. The patient may need Kayexalate on a regular basis. There are no labs done today. 5. Volume overload, pulmonary edema, currently improved. PLAN: Repeat labs and continue Aranesp and agree with discussion regarding hospice care, particularly as patient does not want any kind of renal replacement therapy.
[2016-07-07 20:20] LABS: Glucose,Whole Blood 133 mg/dL (75-99)
[2016-07-07] MEDS: ALLOPURINOL 100 MG TAB PO SCH (22:08)
[2016-07-07] MEDS: amLODIPine 5 MG TAB PO SCH (22:08)
[2016-07-08] MEDS: HEPARIN SODIUM,PORCINE 5,000 UNIT/ML 1 ML VIAL SQ SCH ×2 (04:41→08:14)
[2016-07-08 05:54] LABS: Glucose,Whole Blood 104 mg/dL (75-99)
[2016-07-08] MEDS: INSULIN LISPRO (humaLOG) 300 UNIT/3 ML VIAL SQ SCH ×2 (06:29→12:05)
[2016-07-08] MEDS: CARVEDILOL 12.5 MG TAB PO SCH (06:31)
[2016-07-08 07:01] LABS: CH 29.2; CHCM 30.3; HCT 28.8 % (39.0-53.0); HDW 3.19; HGB 8.4 gm/dL (13.0-17.5); Hypochromasia Marked; MCH 28.2 pg (25.0-35.0); MCHC 29.1 g/dL (31.0-37.0); MCV 96.9 fL (80.0-100.0); Mean Platelet Volume 7.3; RBC 2.97 m/uL (4.30-5.90); RDW 15.1 % (11.5-15.5)
[2016-07-08 07:06] LABS: Calcium 8.7 mg/dL (8.4-10.2); Potassium 4.8 mmol/L (3.5-5.1)
--- NOTE | 2016-07-08 07:26 | PN ---
DATE OF SERVICE: 07/07/2016 PRESENTING COMPLAINT: Shortness of breath. INTERVAL HISTORY: This is a patient with advanced renal failure who presented with congestive heart failure who has declined renal replacement therapy. Tolerating a diet. Laying in bed, comfortable. Review of systems done for constitutional, cardiovascular, GI, pulmonary; relevant findings as above. Current medications are reviewed that include IV Lasix. On examination, temperature 97.8, pulse 64, respirations 16, blood pressure 140/72, pulse 92% on 3 liters. GENERAL APPEARANCE: Lying in bed, not in distress. EYES: Pupils equal. Conjunctivae normal. NECK: JVD unable to assess. Mass not palpable. RESPIRATORY: Effort normal. LUNGS: Diminished sounds. CARDIOVASCULAR: First and second sounds normal. No edema. ABDOMEN: Soft, nontender. Liver and spleen not palpable. PSYCHIATRY: Awake, answering questions. EXTREMITIES: Left foot amputation. INVESTIGATIONS: Accu-Cheks are noted. ASSESSMENT: 1. Acute on chronic congestive heart failure from diastolic dysfunction, ejection fraction 55 to 60% from hypertensive heart disease. 2. Recent left below-knee amputation for calcaneal osteomyelitis. 3. Stage V chronic kidney disease secondary to nephrosclerosis progressively getting worse. 4. Morbid obesity, body mass index of more than 50. 5. Hypertensive heart disease. 6. Secondary hyperparathyroidism secondary to chronic kidney disease. 7. Metabolic acidosis from renal disease PLAN: I spoke to the patient and he still not keen for any dialysis. Patient's sister was in the room. I had a talk with the patient yet again. He is agreeable to go back to his ECF. When the time comes we will switch over to hospice; he has used [facility] before. I also spoke to Dr. Rankin. We have no choice, but respect patient's wishes. Will communicate this with Dr. Lentz. Also discussed with Dr. Rankin. Total time spent with patient was about 40 minutes with over 25 minutes of discussion.
[2016-07-08] MEDS: IPRATROPIUM-ALBUTEROL 3 ML NEB INHALATION SCH ×3 (07:43→15:23)
[2016-07-08 08:11] VITALS: RESP 16; TEMP 97.1
[2016-07-08] MEDS: FUROSEMIDE 10 MG/ML 10 ML VIAL IV SCH (08:16)
[2016-07-08] MEDS: CIPROFLOXACIN HCL 500 MG TAB PO SCH (08:17)
[2016-07-08] MEDS: PRAZOSIN 1 MG CAP PO SCH (08:17)
[2016-07-08] MEDS: CALCIUM ACETATE 667 MG CAP PO SCH (08:17)
[2016-07-08] MEDS: DOXYCYCLINE 50 MG CAP PO SCH (08:18)
[2016-07-08] MEDS: SODIUM BICARBONATE TAB 650 MG TAB PO SCH (08:18)
[2016-07-08] MEDS: THYROID, PORK 30 MG TAB PO SCH ×2 (08:19)
[2016-07-08 12:05] LABS: Glucose,Whole Blood 109 mg/dL (75-99)
--- NOTE | 2016-07-08 14:17 | PN ---
Patient is seen for follow-up for CKD Stage 5. He refuses any kind of renal replacement therapy. The patient is currently lying in bed, comfortable. He is not in any acute distress. Blood pressure is 158/74, heart rate 61, he is afebrile. Examination of the heart S1 and S2. Examination of the lungs: Bilateral breath sounds are heard. ABDOMEN: Morbidly obese. Examination of lower extremities shows left BKA, chronic skin changes ( ) noted. MEDIA SENIOR RECRUITER exam is grossly intact. Labs show potassium 4.8, sodium 140, serum creatinine 5.42. Hemoglobin 8.4 gm/DL. ASSESSMENT: 1. Chronic kidney disease Stage 5 with fluctuating creatinine secondary to some degree of acute kidney injury with severe anemia, currently slightly improved. Patient has refused renal replacement therapy on multiple occasions and there has been discussion with him regarding hospice as well. 2. Anemia, no active bleeding noted, status post packed RBC and current hemoglobin at 8.4 g/dL patient is maintained on ( ) 60 mcg every week which he will continue. 3. Status post left below knee amputation maintained on Cipro and azithromycin. Blood cultures are currently negative. PLAN: No changes from nephrology standpoint.
[2016-07-08 15:51] VITALS: BP 163/93; PULSE 60
--- NOTE | 2016-07-08 16:11 | DS ---
DATE OF ADMISSION: 07/04/2016 DATE OF DISCHARGE: 07/08/2016 FINAL DIAGNOSES: 1. Acute on chronic congestive heart failure exacerbation from diastolic dysfunction, ejection fraction 55% to 60%, from hypertensive heart disease. 2. Recent left below-knee amputation for calcaneal osteomyelitis. 3. Stage V chronic kidney disease secondary to nephrosclerosis, progressively getting worse. 4. Morbid obesity; body mass index more than 50. 5. Hypertensive heart disease, chronic. 6. Secondary hyperparathyroidism secondary to chronic kidney disease. 7. Metabolic acidosis from renal disease. HOSPITAL COURSE: This is a very pleasant gentleman who has stage V kidney disease, progressively getting worse. After multiple discussions with him, including Dr. Rankin, Dr. Diallo, his family doctor, Dr. Lentz, patient has declined renal replacement therapy. I did have a talk with him. He has also become DNR and he does understand that he will be encephalopathic at some point, and then he wants to become hospice thereafter. His sister will become his POA. On examination, lungs have decreased breath sounds. CARDIOVASCULAR: First and second sounds normal. PSYCH: Alert and oriented x3. DISCHARGE MEDICATIONS: 1. PhosLo 667 mg p.o. t.i.d. 2. [place] Thyroid 60 mg p.o. daily. 3. Uloric 40 mg p.o. at bedtime. 4. [place] Thyroid 15 mg p.o. daily. 5. Norvasc 5 mg p.o. at bedtime. 6. Minipress 2 mg p.o. b.i.d. 7. Sodium bicarbonate 1300 mg p.o. b.i.d. 8. Coreg 25 mg p.o. b.i.d. 9. Doxycycline 200 mg q.12 for 15 days. 10. DuoNeb q.i.d. 11. Aranesp 60 mcg subcutaneously q.7 days. 12. Lasix 80 mg q.12. 13. Ultram 100 mg q.6 p.r.n. DISPOSITION: [facility]. Follow up with Dr. Lentz. CODE STATUS: DNR. SPECIAL NOTE: If patient deteriorates, patient is to be made hospice in that case. Left stump care to continue as before.
[2016-07-08 17:13] LABS: Glucose,Whole Blood 122 mg/dL (75-99)
[2016-07-09] MEDS ORDERED: VANCOMYCIN 2,000 MG in SODIUM CHLORIDE 0.9% 500 ML IVPB ONE (18:00)
== END 2016-07-08 18:10 | DRG 291 ==
LOC: EC 08:07 → 6SEL 11:25
PROVIDERS: ADMIT Hospitalist; ATTEND Hospitalist
PROC: 30233N1 Transfusion of Nonautologous Red Blood Cells into Peripheral Vein, Percutaneous Approach (ICD-10-PCS; principal; 2016-07-04)
DX: I13.2 Hypertensive heart and chronic kidney disease with heart failure and with stage 5 chronic kidney disease, or end stage renal disease (principal); I50.33 Acute on chronic diastolic (congestive) heart failure; E87.2 Acidosis; N17.9 Acute kidney failure, unspecified; E11.22 Type 2 diabetes mellitus with diabetic chronic kidney disease; N18.5 Chronic kidney disease, stage 5; Z68.43 Body mass index [BMI] 50.0-59.9, adult; N25.81 Secondary hyperparathyroidism of renal origin; E66.01 Morbid (severe) obesity due to excess calories; Z66 Do not resuscitate; E87.5 Hyperkalemia; H52.202 Unspecified astigmatism, left eye; Z89.512 Acquired absence of left leg below knee; Z71.3 Dietary counseling and surveillance; E78.5 Hyperlipidemia, unspecified; E03.9 Hypothyroidism, unspecified; I44.0 Atrioventricular block, first degree; D64.9 Anemia, unspecified; Z86.14 Personal history of Methicillin resistant Staphylococcus aureus infection; Z79.899 Other long term (current) drug therapy
CPT/HCPCS: 36415; 36430; 71010; 80048; 80053; 80202; 81001; 82550; 82553; 83036; 83735; 83880; 84100; 84484; 85025; 85027; 85379; 85610; 85730; 86850; 86900; 86901; 86920; 87040; 93005; 93306; 93970; 94640; 96365; 96366; 96367; 96372; 96375; 99291

== ENCOUNTER 2016-08-09 12:33 | Inpatient (IN) | payer MEDICARE, OTHER ==
[2016-08-09] MEDS ORDERED: IPRATROPIUM-ALBUTEROL 3 ML NEB INHALATION STA (13:34)
[2016-08-09] MEDS ORDERED: FUROSEMIDE 10 MG/ML 4 ML VIAL IV STA (13:34)
[2016-08-09] MEDS ORDERED: NITROGLYCERIN OINT 1 INCH/GM PACKET TOPICAL STA (13:34)
[2016-08-09] MEDS ORDERED: ASPIRIN 81 MG CHEW PO STA (13:39)
--- NOTE | 2016-08-09 13:51 | ED ---
SOB HPI - General Chief Complaint: Shortness of Breath Stated Complaint: SOB Time Seen by Provider: 08/09/16 13:25 Source: patient Mode of arrival: EMS Limitations: no limitations - History of Present Illness Initial Comments: This 51-year-old white male presents with a complaint of shortness of breath. He states that it has been present for the last 1 week and has been progressively worsening. He is currently residing at [facility]. She states that he has been utilizing oxygen and has increased it up to 4 L. He relates that he is 84-88% without oxygen and ranges up to 94% with 4 L at the [facility]. He does take DuoNeb intermittently for the last 2 days and states that he has some mild alleviation of his shortness of breath but this is short-lived. He has had a very slight cough but denies any production. He denies any fevers chills or chest pain. He does have a history of a pleural effusion of unknown cause. They feel that it may be related to his end-stage renal failure. He is not on dialysis currently. He also has a history of congestive heart failure but denies any lower extremity or abdominal edema recently. He denies any known weight gain. He denies any history of DVT or PE or leg pain or swelling. He does relate that he's been in the ECF due to a below the knee amputation of his left leg in June 2016 with subsequent complications. No other complaints or modifying factors. - Related Data Home Medications Medication Instructions Recorded Confirmed Calcium Acetate [PhosLo] 667 mg PO TID 03/14/14 08/09/16 Thyroid,Pork [[place] Thyroid] 60 mg PO DAILY 03/14/14 08/09/16 Febuxostat [Uloric] 40 mg PO HS 05/23/15 08/09/16 amLODIPine BESYLATE [Norvasc] 5 mg PO HS 06/23/16 08/09/16 Carvedilol [Coreg] 25 mg PO BID 07/04/16 08/09/16 Ipratropium-Albuterol Nebulize 3 ml INHALATION RT-Q6H PRN 07/04/16 08/09/16 [Duoneb 0.5 mg-3 mg/3 ml Soln] Darbepoetin Barron [Aranesp] 60 mcg SQ WE 08/09/16 08/09/16 Ferrous Sulfate [Feosol] 325 mg PO HS 08/09/16 08/09/16 Furosemide [Lasix] 80 mg PO BID 08/09/16 08/09/16 Prazosin HCl 2 mg PO BID 08/09/16 08/09/16 traMADol HCl [Ultram] 100 mg PO Q12H PRN 08/09/16 08/09/16 Allergies Allergy/AdvReac Type Severity Reaction Status Date / Time No Known Allergies Allergy Verified 08/09/16 14:20 Review of Systems ROS Statement: Those systems with pertinent positive or pertinent negative responses have been documented in the HPI. ROS Other: All systems not noted in ROS Statement are negative. Past Medical History Past Medical History: Diabetes Mellitus, Eye Disorder, Hypertension Additional Past Medical History / Comment(s): chronic kidney disease stage 4- past hemodialysis for about 45 days-now refusing, NIDDM type II diet controlled , cardiomegaly, L pleural effusions with thoracentesis, bone mineral dx, anemia , hypothyroidism, L eye astigmatism, R femur fx as child with body cast. History of Any Multi-Drug Resistant Organisms: MRSA Date of last positivie culture/infection: 06/23/16 MDRO Source:: Left Foot Past Surgical History: No Surgical Hx Reported Additional Past Surgical History / Comment(s): L sided thoracentesis x 3. Past Anesthesia/Blood Transfusion Reactions: No Reported Reaction Additional Past Anesthesia/Blood Transfusion Reaction / Comment(s): Pt has never had anesthesia. Past Psychological History: No Psychological Hx Reported Additional Psychological History / Comment(s): Pt resides alone. He can stand and pivot to wheelchair. He lives in [facility]. He uses the bus to get places. Smoking Status: Never smoker Past Alcohol Use History: Occasional Past Drug Use History: None Reported - Past Family History Father Family Medical History: Cancer Additional Family Medical History / Comment(s): NON HODGKINS LYNPHOMA. Father at the age of 50 from chemo treatment to get ready for bone marrow transplant. Mother Family Medical History: Cancer Additional Family Medical History / Comment(s): BREAST CANCER SURVIVOR. General Exam - General Exam Comments Initial Comments: GENERAL: The patient is well nourished and well hydrated. VITAL SIGNS: Heart rate, blood pressure, respiratory rate reviewed as recorded in nurse's notes. EYES: Pupils are round and reactive. Extraocular movements are intact. No conjunctival / lid redness or swelling. ENT: No external evidence of injury, swelling, or ecchymosis. Airway is patent. Throat is clear. NECK: Nontender. No swelling or evidence of injury. No subcutaneous emphysema. Trachea is midline. No thyroid mass. HEART: Regular rate and rhythm. Good peripheral pulses. LUNGS/CHEST: Breath sounds clear and equal bilaterally. No rales, rhonchi, or wheezes. No ecchymosis, subcutaneous emphysema, or tenderness. ABDOMEN: Abdomen soft without tenderness. No palpable masses or organomegaly. No peritoneal signs. No abdominal wall swelling or ecchymosis. The abdomen is obese. EXTREMITIES: No extremity tenderness. Normal muscle tone and function. No thoracolumbar tenderness. There is a below the knee amputation on the left side. NEUROLOGIC: Sensation is grossly intact. Cranial nerve exam reveals face is symmetrical, tongue is midline, speech is clear. SKIN: No abrasions or ecchymosis is noted. No induration or masses noted. There is a chronic eschar noted to the left leg stump. There is no associated erythema or signs of infection or drainage. PSYCHIATRIC: Alert and oriented. Appropriate behavior and judgment. Limitations: no limitations Course Vital Signs 08/09/16 08/09/16 08/09/16 12:36 13:25 13:56 Temperature 96.8 F L Pulse Rate 54 L 56 L Respiratory 24 24 Rate Blood Pressure 128/62 O2 Sat by Pulse 90 L Oximetry 08/09/16 08/09/16 14:03 14:04 Temperature Pulse Rate 53 L 56 L Respiratory 18 Rate Blood Pressure 137/65 O2 Sat by Pulse 91 L Oximetry Medical Decision Making - Medical Decision Making The patient was seen and examined. All diagnostics were reviewed. The EKG shows a sinus bradycardia at a rate of 54. There is no acute ST-T wave changes noted. There is low voltage QRS likely due to the morbid obesity. He has a [place] interval of 192, QRS duration of 86, and QTc interval 428. The patient had a chest x-ray which does show significant evidence of fluid overload/congestive heart failure. The patient's laboratory came back abnormal with a potassium elevated at 5.8, chloride elevated at 109, CO2 low at 20, the when of 101, and creatinine of 5.71, and hemoglobin low at 7.8, and BMP elevated at 22,700. It appears that these values are trending in the negative direction. It is felt as though he is fluid overloaded due to his renal failure. Old records indicate previous ejection fraction a couple months ago of between 50-60%. He is given aspirin Lasix and Nitropaste. He also is given Kayexalate, D50, insulin, and bicarbonate for treatment of his hyperkalemia. Case is discussed with Dr. Jaquez and he is agreeable for admission with nephrology to consult. The patient is informed of this as well. Approximately 30 minutes of critical care time was utilized and the treatment of the patient and he'll be admitted to the cardiac unit. - Lab Data Result diagrams: 08/09/16 13:20 08/09/16 13:20 Lab Results 08/09/16 08/09/16 08/09/16 Range/Units 13:20 13:20 13:20 WBC 7.9 (3.8-10.6) k/uL RBC 2.62 L (4.30-5.90) m/uL Hgb 7.8 L (13.0-17.5) gm/dL Hct 26.5 L (39.0-53.0) % MCV 100.9 H (80.0-100.0) fL MCH 29.7 (25.0-35.0) pg MCHC 29.5 L (31.0-37.0) g/dL RDW 16.6 H (11.5-15.5) % Plt Count 385 (150-450) k/uL Neutrophils % 76 % Lymphocytes % 13 % Monocytes % 5 % Eosinophils % 5 % Basophils % 1 % Neutrophils # 6.0 (1.3-7.7) k/uL Lymphocytes # 1.0 (1.0-4.8) k/uL Monocytes # 0.4 (0-1.0) k/uL Eosinophils # 0.4 (0-0.7) k/uL Basophils # 0.1 (0-0.2) k/uL Hypochromasia Marked Anisocytosis Slight Macrocytosis Slight PT (9.0-12.0) sec INR (<1.1) APTT (22.0-30.0) sec D-Dimer (<0.60) mg/L FEU Sodium 144 (137-145) mmol/L Potassium 5.8 H (3.5-5.1) mmol/L Chloride 109 H (98-107) mmol/L Carbon Dioxide 20 L (22-30) mmol/L Anion Gap 15 mmol/L BUN 101 H* (9-20) mg/dL Creatinine 5.71 H* (0.66-1.25) mg/dL Est GFR (MDRD) Af Amer 13 (>60 ml/min/1.73 sqM) Est GFR (MDRD) Non-Af 11 (>60 ml/min/1.73 sqM) Glucose 95 (74-99) mg/dL Calcium 8.6 (8.4-10.2) mg/dL Magnesium 1.9 (1.6-2.3) mg/dL Total Bilirubin 0.7 (0.2-1.3) mg/dL AST 18 (17-59) U/L ALT 25 (21-72) U/L Alkaline Phosphatase 136 H (38-126) U/L Total Creatine Kinase 35 L (55-170) U/L CK-MB (CK-2) 1.4 (0.0-2.4) ng/mL CK-MB (CK-2) Rel Index 4.0 Troponin I 0.017 (0.000-0.034) ng/mL NT-Pro-B Natriuret Pep pg/mL Total Protein 6.5 (6.3-8.2) g/dL Albumin 2.9 L (3.5-5.0) g/dL 08/09/16 08/09/16 Range/Units 13:20 13:20 WBC (3.8-10.6) k/uL RBC (4.30-5.90) m/uL Hgb (13.0-17.5) gm/dL Hct (39.0-53.0) % MCV (80.0-100.0) fL MCH (25.0-35.0) pg MCHC (31.0-37.0) g/dL RDW (11.5-15.5) % Plt Count (150-450) k/uL Neutrophils % % Lymphocytes % % Monocytes % % Eosinophils % % Basophils % % Neutrophils # (1.3-7.7) k/uL Lymphocytes # (1.0-4.8) k/uL Monocytes # (0-1.0) k/uL Eosinophils # (0-0.7) k/uL Basophils # (0-0.2) k/uL Hypochromasia Anisocytosis Macrocytosis PT 10.9 (9.0-12.0) sec INR 1.1 (<1.1) APTT 18.3 L (22.0-30.0) sec D-Dimer 2.70 H (<0.60) mg/L FEU Sodium (137-145) mmol/L Potassium (3.5-5.1) mmol/L Chloride (98-107) mmol/L Carbon Dioxide (22-30) mmol/L Anion Gap mmol/L BUN (9-20) mg/dL Creatinine (0.66-1.25) mg/dL Est GFR (MDRD) Af Amer (>60 ml/min/1.73 sqM) Est GFR (MDRD) Non-Af (>60 ml/min/1.73 sqM) Glucose (74-99) mg/dL Calcium (8.4-10.2) mg/dL Magnesium (1.6-2.3) mg/dL Total Bilirubin (0.2-1.3) mg/dL AST (17-59) U/L ALT (21-72) U/L Alkaline Phosphatase (38-126) U/L Total Creatine Kinase (55-170) U/L CK-MB (CK-2) (0.0-2.4) ng/mL CK-MB (CK-2) Rel Index Troponin I (0.000-0.034) ng/mL NT-Pro-B Natriuret Pep 84254 pg/mL Total Protein (6.3-8.2) g/dL Albumin (3.5-5.0) g/dL Disposition Clinical Impression: Acute renal failure, Congestive heart failure, Chronic renal failure, Hyperkalemia, Diabetes, Hyperchloremia, Anemia, Respiratory failure, Hypoxia, Morbid obesity, History of below knee amputation Disposition: ADMITTED IP TO THIS [facility] Condition: Fair Time of Disposition: 15:25 Decision Date: 08/09/16 Decision Time: 15:25
[2016-08-09 14:00] LABS: Anisocytosis Slight; Basophils # (A) 0.1 k/uL (0-0.2); Basophils % (A) 1 %; CH 29.7; CHCM 29.6; Eosinophils # (A) 0.4 k/uL (0-0.7); Eosinophils % (A) 5 %; HCT 26.5 % (39.0-53.0); HDW 2.91; HGB 7.8 gm/dL (13.0-17.5); Hypochromasia Marked; Luc # (Auto) 0.08; Luc % (Auto) 1; Lymphocytes % (A) 13 %; MCH 29.7 pg (25.0-35.0); MCHC 29.5 g/dL (31.0-37.0); MCV 100.9 fL (80.0-100.0); Macrocytosis Slight; Monocytes # (A) 0.4 k/uL (0-1.0); Monocytes % (A) 5 %; Neutrophils % (A) 76 %; RBC 2.62 m/uL (4.30-5.90); RDW 16.6 % (11.5-15.5); WBC 7.9 k/uL (3.8-10.6); WBC (Perox) 8.11
[2016-08-09 14:25] LABS: Calcium 8.6 mg/dL (8.4-10.2); Magnesium 1.9 mg/dL (1.6-2.3); Potassium 5.8 mmol/L (3.5-5.1); Total Bilirubin 0.7 mg/dL (0.2-1.3); Total Protein 6.5 g/dL (6.3-8.2)
[2016-08-09 14:32] LABS: Creatine Kinase MB 1.4 ng/mL (0.0-2.4); Troponin I 0.017 ng/mL (0.000-0.034)
[2016-08-09 14:35] LABS: INR 1.1 (<1.1); Prothrombin Time 10.9 sec (9.0-12.0)
[2016-08-09] MEDS ORDERED: SODIUM BICARB 8.4% 50 ML SYR (1 MEQ/ML) IV ONE (14:54)
[2016-08-09] MEDS ORDERED: INSULIN REGULAR 100 UNIT/ML VIAL IV ONE (14:54)
[2016-08-09] MEDS ORDERED: SODIUM POLYSTYRENE SULFONATE 15 GM/60 ML BOTTLE PO ONE (14:54)
[2016-08-09] MEDS ORDERED: DEXTROSE 50%-WATER 50 ML SYRINGE IVP ONE (14:54)
--- NOTE | 2016-08-09 14:56 | XR ---
EXAMINATION TYPE: XR chest 2V DATE OF EXAM: 08/09/2016 2:43 PM COMPARISON: 07/04/2016 HISTORY: Shortness of breath TECHNIQUE: Frontal and lateral views of the chest are obtained. FINDINGS: There is evidence for cardiomegaly as well as pulmonary venous congestion. Right-sided effusion and s cattered infiltrates identified. The findings are nonspecific and could be on the basis of congestive failure versus underlying pneumonia. Mediastinal structures are stable and grossly unremarkable. No evidence for hilar prominence. Degenerative changes dorsal spine. IMPRESSION: 1. Correlate for CHF versus pneumonia.
[2016-08-09 15:04] LABS: Partial Thromboplastin Time 18.3 sec (22.0-30.0)
[2016-08-09] MEDS ORDERED: IPRATROPIUM-ALBUTEROL 3 ML NEB INHALATION PRN (15:30)
[2016-08-09] MEDS ORDERED: traMADol 50 MG TAB PO PRN (15:30)
[2016-08-09] MEDS ORDERED: ENOXAPARIN 40 MG/0.4 ML SYRINGE SQ ONE (15:45)
[2016-08-09] MEDS: FUROSEMIDE 10 MG/ML 10 ML VIAL IV SCH (19:32)
[2016-08-09] MEDS: ALLOPURINOL 100 MG TAB PO SCH (19:34)
[2016-08-09] MEDS: CARVEDILOL 12.5 MG TAB PO SCH (19:34)
[2016-08-09] MEDS: CALCIUM ACETATE 667 MG CAP PO SCH (19:34)
[2016-08-09] MEDS: NITROGLYCERIN OINT 1 INCH/GM PACKET TOPICAL SCH ×2 (19:34→21:35)
[2016-08-09] MEDS: PRAZOSIN 1 MG CAP PO SCH (19:35)
[2016-08-09] MEDS: FERROUS SULFATE 325 MG TAB PO SCH (19:35)
[2016-08-09] MEDS ORDERED: amLODIPine 5 MG TAB PO SCH (21:00)
[2016-08-09 22:03] LABS: Creatine Kinase MB 1.6 ng/mL (0.0-2.4); Troponin I 0.017 ng/mL (0.000-0.034)
[2016-08-10 03:34] LABS: Creatine Kinase MB 1.5 ng/mL (0.0-2.4); Troponin I 0.013 ng/mL (0.000-0.034)
[2016-08-10] MEDS: CALCIUM ACETATE 667 MG CAP PO SCH ×3 (06:57→16:54)
[2016-08-10] MEDS: CARVEDILOL 12.5 MG TAB PO SCH ×2 (06:57→16:55)
[2016-08-10] MEDS: PRAZOSIN 1 MG CAP PO SCH ×2 (08:30→20:34)
[2016-08-10] MEDS: THYROID, PORK 30 MG TAB PO SCH (08:30)
[2016-08-10] MEDS: ENOXAPARIN 30 MG/0.3 ML SYRINGE SQ SCH (08:31)
[2016-08-10] MEDS: NITROGLYCERIN OINT 1 INCH/GM PACKET TOPICAL SCH ×4 (08:31→20:34)
[2016-08-10] MEDS: ASPIRIN 325 MG TAB PO SCH (08:31)
[2016-08-10] MEDS: FUROSEMIDE 10 MG/ML 10 ML VIAL IV SCH ×2 (08:31→16:54)
[2016-08-10 11:17] VITALS: BMI 53.4
--- NOTE | 2016-08-10 16:08 | CONS ---
DATE OF CONSULTATION: 08/10/2016 REASON FOR CONSULTATION: Renal failure. HISTORY OF PRESENT ILLNESS: The patient is a 51-year-old white male with a history of end-stage renal disease/CKD stage V, with no plans for renal placement therapy. He was admitted to the hospital with shortness of breath, feeling weak and fatigued, and he is currently being treated for CSF, maintained on IV Lasix. Patient states he is feeling better today. He has had a fair amount of urine output. PAST MEDICAL HISTORY: 1. CKD stage V. 2. Anemia of chronic disease. 3. CKD bone mineral disorder. 4. Hypothyroidism. 5. Morbid obesity. 6. Hypertension. 7. Recent left BKA for infected wound and sepsis. Medications currently include: 1. PhosLo. 2. Synthroid. 3. Norvasc. 4. Uloric. 5. Coreg. 6. Aranesp. 7. Iron. 8. Lasix. 9. Prazosin. 10. Ultram. ALLERGIES: NONE. REVIEW OF SYSTEMS: Negative for fever, chills, nausea, vomiting, abdominal pain. No diarrhea. Patient did have some chest pain and shortness of breath, as listed previously. SOCIAL HISTORY: Negative for smoking, drug abuse or alcohol abuse. On examination, patient is currently sitting up in bed. He is mildly short of breath, not in any acute distress. Blood pressure is 136/73, heart rate 60 per minute. He is afebrile. EXAMINATION OF THE HEART: S1 and S2. EXAMINATION OF LUNGS: Decreased breath sounds at bases. Bilateral crackles are heard in the bases. ABDOMEN: Soft, morbidly obese. Examination of lower extremities shows edema 2+, right lower extremity. He has a left BKA. Stump is healing. There are scabs noted. No drainage is noted. CARD FOLDER exam is grossly intact. Labs show sodium 144, potassium 5.8, BUN 101, serum creatinine 5.7. Hemoglobin 7.8 g/dL. ASSESSMENT: 1. Chronic kidney disease stage V with patient refusing renal replacement therapy. I have asked him again, and he states he will not be doing any kind of dialysis. 2. Congestive heart failure, fluid overload. Continue with IV Lasix. He seems to be improving slightly. This will also help with the hyperkalemia. 3. Hyperkalemia associated with advanced kidney disease. Will maintain patient on Kayexalate. Serum potassium has improved with the IV diuretics as well. 4. Anemia of chronic disease. No active bleeding noted at this time. Previously I believe patient has had a GI bleed. We will continue with the Aranesp. 5. Chronic kidney disease bone mineral disorder, maintained on PhosLo. 6. Hypothyroidism, maintained on [place] Thyroid. PLAN: Continue with IV Lasix. Repeat labs in a.m. If potassium remains elevated, he will need Kayexalate. Again, I have asked the patient regarding renal replacement therapy and he is adamant that he does not want any kind of dialysis.
--- NOTE | 2016-08-10 16:50 | HP ---
DATE OF ADMISSION: 08/09/2016 Patient is a 51-year-old who came in with complaints of shortness of breath. Patient was found to have pulmonary edema with highly elevated BNP. Patient has normal ejection fraction. Patient may have diastolic dysfunction. Patient can urinate, although patient has poor renal function secondary to hypertensive nephrosclerosis as well as diabetic nephropathy. Patient does not use any diabetic medication. Patient normally does not use any oxygen; has to use 4 L, in spite of which his oxygen saturations have gone down. I cannot appreciate any JVD because of his neck contour. Patient does have moderate pulmonary hypertension and significant right-sided heart failure and patient is receiving Lasix. I increased the Lasix to 80 IV b.i.d. Patient was evaluated by Nephrology. Patient was given option of initiating hemodialysis, which he declined. At this point of time patient can urinate, will be started on Lasix. Will watch him here. Patient has extensive history in the past which will be dictated below. Patient denied any fever or chills. Patient denied any cough, runny nose. Patient does not have any leukocytosis. No signs or symptoms of pneumonia. Patient has a left below-knee amputation. Very pleasant gentleman, morbidly obese. REVIEW OF SYSTEMS: CONSTITUTIONAL: No fever, no malaise, no fatigue. HEENT: No recent visual problems or hearing problems. Denied any sore throat. CARDIOVASCULAR: No chest pain, orthopnea, PND, no palpitations, no syncope. PULMONARY: As described in HPI. Patient was complaining of orthopnea and PND. GASTROINTESTINAL: No diarrhea, no nausea, no vomiting, no abdominal pain. Normoactive bowel sounds. NEUROLOGICAL: No headaches, no weakness, no numbness. HEMATOLOGICAL: Denies any bleeding or petechiae. GENITOURINARY: Denies any burning micturition, frequency, or urgency. MUSCULOSKELETAL/RHEUMATOLOGICAL: Denies any joint pain, swelling, or any muscle pain. ENDOCRINE: Denies any polyuria or polydipsia. The rest of the 14 point review of systems is negative. Home medications include: 1. Calcium acetate. 2. Thyroid medication. 3. Uloric. 4. Amlodipine. 5. Coreg. 6. Ipratropium albuterol. 7. Darbepoetin lina. 8. Ferrous sulfate. 9. Lasix. 10. Prazosin. 11. Tramadol. 12. Patient was started on calcium carbonate here. ALLERGIES: NO KNOWN DRUG ALLERGIES. Past medical history is significant for: 1. Diabetes mellitus. 2. Hypertension. 3. CKD stage IV hemodialysis-dependent. 4. Type 2 diabetes mellitus. 5. Hypothyroidism. 6. Femoral fracture in the past. 7. Left below-knee amputation for osteomyelitis. 8. MRSA infections in the past. 9. Patient had thoracocentesis in the past from right-sided heart failure. SOCIAL HISTORY: Denied any smoking, alcohol abuse or any drug abuse. FAMILY HISTORY: Father had non-Hodgkin's lymphoma. Father at age 50. Mother is a breast cancer survivor. PHYSICAL EXAMINATION: VITAL SIGNS: Temperature 98.0, pulse of 60, respiratory rate of 20. Blood pressure is 136/73. Saturating at 95% on 6 L of oxygen by nasal cannula. GENERAL: Morbidly obese Alert and oriented x3. I am unable to appreciate any JVD. HEENT: Pupils are round and equally reacting to light. EOMI. No scleral icterus. No conjunctival pallor. Normocephalic, atraumatic. No pharyngeal erythema. No thyromegaly. CARDIOVASCULAR: S1 and S2 present. I am unable to appreciated S3. There is no significant edema; patient is mostly bed-bound. PULMONARY: Chest is clear to auscultation, no wheezing or crackles. ABDOMEN: Soft, nontender, nondistended, normoactive bowel sounds. No palpable organomegaly. MUSCULOSKELETAL: No joint swelling or deformity. EXTREMITIES: Patient has an above-knee amputation. NEUROLOGICAL: Gross neurological examination did not reveal any focal deficits. SKIN: No rashes. LABORATORY DATA: CBC, CMP are abnormal for low hemoglobin of 7.8, MCV of 100.9. D-dimer is 2.7. I do not believe patient has any pulmonary embolism. Elevated D-dimer is multifactorial in his situation, including renal failure. BNP is highly elevated, as mentioned above. Troponins are negative. EKG did not show any acute ST-T wave changes. ASSESSMENT AND PLAN: 1. Acute hypoxic respiratory failure secondary to pulmonary edema, which is secondary to chronic diastolic dysfunction with acute exacerbation. 2. Chronic kidney disease, stage V. Patient although still urinates, because of which patient was started on 80 b.i.d. of IV Lasix. Will monitor him clinically. He did have symptomatic improvement with Lasix. 3. Metabolic bone disease secondary to chronic kidney disease. 4. Metabolic acidosis secondary to uremia, for which patient was started on oral bicarbonate. 5. Hyperkalemia secondary to congestive heart failure. 6. Morbid obesity. 7. Type 2 diabetes mellitus, diet-controlled. 8. Hypertension. 9. Hypertensive nephrosclerosis. 10. Hypothyroidism. PLAN: Continue with the rest of his home medications. Patient will be continued on 80 IV b.i.d. of Lasix. Strict I&O. Appreciate nephrology recommendations.
[2016-08-10] MEDS: ALLOPURINOL 100 MG TAB PO SCH (20:34)
[2016-08-10] MEDS: FERROUS SULFATE 325 MG TAB PO SCH (20:34)
[2016-08-11] MEDS: CALCIUM ACETATE 667 MG CAP PO SCH ×3 (06:21→17:58)
[2016-08-11] MEDS: CARVEDILOL 12.5 MG TAB PO SCH ×2 (06:21→17:58)
[2016-08-11 06:23] LABS: CH 28.9; CHCM 28.8; HCT 25.3 % (39.0-53.0); HDW 2.92; HGB 7.2 gm/dL (13.0-17.5); Hypochromasia Marked; MCH 28.7 pg (25.0-35.0); MCHC 28.5 g/dL (31.0-37.0); Macrocytosis Slight; Mean Platelet Volume 6.6; WBC 7.7 k/uL (3.8-10.6)
[2016-08-11 06:35] LABS: Calcium 8.4 mg/dL (8.4-10.2); Potassium 5.2 mmol/L (3.5-5.1)
[2016-08-11] MEDS: ASPIRIN 325 MG TAB PO SCH (09:53)
[2016-08-11] MEDS: PRAZOSIN 1 MG CAP PO SCH ×2 (09:56→21:04)
[2016-08-11] MEDS: FUROSEMIDE 10 MG/ML 10 ML VIAL IV SCH ×2 (09:56→17:59)
[2016-08-11] MEDS: THYROID, PORK 30 MG TAB PO SCH (09:56)
[2016-08-11] MEDS: NITROGLYCERIN OINT 1 INCH/GM PACKET TOPICAL SCH ×4 (09:56→21:06)
[2016-08-11] MEDS: ENOXAPARIN 30 MG/0.3 ML SYRINGE SQ SCH (10:55)
[2016-08-11 11:37] LABS: % Iron Saturation 14.7 % (20-50)
--- NOTE | 2016-08-11 14:02 | PN ---
A 51-year-old is admitted for pulmonary edema and diastolic dysfunction heart failure and patient did not have any significant improvement. Patient is on 80 IV b.i.d. of Lasix. Patient has a poor renal function. Nephrology is following the patient as well. Patient's B12 is essentially within normal limits. REVIEW OF SYSTEMS: CARDIOVASCULAR: No chest pain, no orthopnea, no PND, no palpitations. PULMONARY: As described in HPI. GASTROINTESTINAL: No diarrhea, nausea or vomiting. No abdominal pain. Normoactive bowel sounds. NEUROLOGIC: No headaches, no weakness, no numbness. Medications were reviewed. PHYSICAL EXAMINATION: VITAL SIGNS: Temperature 98.8, pulse of 63, respiratory rate of 22, blood pressure is 140/61. Saturating at 94% on 5 L of O2 by nasal cannula. GENERAL: Morbidly obese, alert and oriented x3. LUNG EXAMINATION: Bibasilar crackles were appreciated. HEENT: Pupils are round and equally reacting to light. EOMI. No scleral icterus. No conjunctival pallor. Normocephalic, atraumatic. No pharyngeal erythema. No thyromegaly. CARDIOVASCULAR: S1 and S2 present. No murmurs, rubs, or gallops. ABDOMEN: Soft, nontender, nondistended, normoactive bowel sounds. No palpable organomegaly. MUSCULOSKELETAL: No joint swelling or deformity. EXTREMITIES: No cyanosis, clubbing, or pedal edema. NEUROLOGICAL: Gross neurological examination did not reveal any focal deficits. SKIN: No rashes. LABORATORY DATA: Mildly worsening BUN and creatinine of 109 and 5.89, potassium of 5.2. Patient may end up needing dialysis, hemoglobin is 7.2. Patient most probably has iron-deficiency along with anemia of chronic kidney disease. In spite of elevated MCV, B12 is normal. ASSESSMENT AND PLAN: 1. Acute hypoxic respiratory failure secondary to pulmonary edema which is again secondary to chronic diastolic dysfunction with acute exacerbation. Continue with IV Lasix as mentioned above. 2. Chronic kidney disease stage IV. Management as per Nephrology. 3. Metabolic bone disease. 4. Metabolic acidosis secondary to uremia for which patient is receiving oral bicarbonate. 5. Hyperkalemia secondary to chronic kidney disease, which is improving at this point of time. 6. Morbid obesity. 7. Type 2 diabetes mellitus. 8. Hypertension. 9. Hypotensive nephrosclerosis. 10. Hyperthyroidism. Plan is to continue with IV Lasix, I's & O's. Continue to monitor kidney function. Patient most probably will need hemodialysis. Will try to taper down his oxygen. Patient does not use any oxygen at home.
--- NOTE | 2016-08-11 15:02 | PN ---
Patient is seen for followup for CKD stage V. He was admitted to the hospital with CHF fluid overload. He is currently maintained on IV Lasix and states he is feeling better. Patient has CKD stage V and had refused any kind of renal replacement therapy on multiple occasions. On examination, blood pressure is 140/67, heart rate 60 per minute. He is afebrile. Examination of the heart, S1 and S2. Examination of the lungs, bilateral breath sounds are heard. Abdomen is soft, obese. Examination of lower extremities shows left BKA with scabs noted at the stump, which appear to be healing. There is edema 1+ noted in his right lower extremity. Abdomen is morbidly obese, nontender. Labs show serum creatinine of 5.89, BUN 109, potassium 5.2. Hemoglobin 7.2 g/dL. ASSESSMENT: 1. Chronic kidney disease stage V with no plans for renal replacement therapy. 2. Anemia of chronic disease with evidence of iron deficiency noted. Will start patient on IV iron. 3. Congestive heart failure and fluid overload, currently on IV Lasix, which we can continue. 4. Hypertension with fair control. 5. Chronic kidney disease bone mineral disorder, maintained on PhosLo. PLAN: Add IV iron. Continue with the Aranesp.
[2016-08-11] MEDS ORDERED: DARBEPOETIN ALFA 60 MCG/0.3 ML SYRINGE SQ SCH (15:30)
[2016-08-11] MEDS: FERROUS SULFATE 325 MG TAB PO SCH (21:04)
[2016-08-11] MEDS: ALLOPURINOL 100 MG TAB PO SCH (21:04)
[2016-08-12] MEDS: CARVEDILOL 12.5 MG TAB PO SCH ×2 (06:40→17:01)
[2016-08-12] MEDS: CALCIUM ACETATE 667 MG CAP PO SCH ×3 (06:40→17:01)
[2016-08-12 06:52] LABS: Calcium 8.7 mg/dL (8.4-10.2); Potassium 4.9 mmol/L (3.5-5.1)
[2016-08-12] MEDS: ENOXAPARIN 30 MG/0.3 ML SYRINGE SQ SCH (09:10)
[2016-08-12] MEDS: NITROGLYCERIN OINT 1 INCH/GM PACKET TOPICAL SCH ×4 (09:11→23:19)
[2016-08-12] MEDS: ASPIRIN 325 MG TAB PO SCH (09:11)
[2016-08-12] MEDS: FUROSEMIDE 10 MG/ML 10 ML VIAL IV SCH ×2 (09:11→17:01)
[2016-08-12] MEDS: PRAZOSIN 1 MG CAP PO SCH ×2 (09:11→21:45)
[2016-08-12] MEDS: THYROID, PORK 30 MG TAB PO SCH (09:12)
[2016-08-12] MEDS: SODIUM FERRIC GLUCONAT-SUCROSE 125 MG in SODIUM CHLORIDE 0.9% 100 ML IVPB SCH (09:24)
--- NOTE | 2016-08-12 13:09 | P.PN ---
Subjective Patient is seen in follow-up for chronic kidney disease stage V. Patient has consistently refused any form of renal replacement therapy. He presented with dyspnea and fluid overload. Overall improved. He's been diuresing well. No vomiting or diarrhea. Appetite is good. He is eager to be discharged. Vital signs are stable. General: The patient appeared well nourished and normally developed. HEENT: Head exam is unremarkable. Neck is without jugular venous distension. LUNGS: Lungs are clear to auscultation and percussion. Breath sounds decreased. HEART: Rate and Rhythm are regular. First and second heart sounds normal. No murmurs, rubs or gallops. ABDOMEN: Abdominal exam reveals normal bowel sounds. Non-tender and non- distended. No evidence of peritonitis. EXTREMITITES: Trace edema in right lower extremity. Left BKA noted. No obvious drainage. Objective - Vital Signs Vital signs: Vital Signs Temp 97 F L 08/12/16 08:00 Pulse 66 08/12/16 11:37 Resp 17 08/12/16 11:37 BP 143/65 08/12/16 11:37 Pulse Ox 94 L 08/12/16 11:37 Intake & Output 08/11/16 08/12/16 08/12/16 18:59 06:59 18:59 Intake Total 180 20 Output Total 1385 750 400 Balance -1205 -730 -400 Weight 179 kg 178 kg Intake: IV 20 0.9% NS FLUSH 20 Oral 180 Output: Urine 1385 750 400 Other: Voiding Method Urinal Urinal Urinal # Voids 1 1 - Labs CBC & Chem 7: 08/11/16 05:40 08/12/16 05:51 Labs: Abnormal Lab Results - Last 24 Hours (Table) 08/12/16 Range/Units 05:51 Carbon Dioxide 21 L (22-30) mmol/L BUN 112 H* (9-20) mg/dL Creatinine 5.90 H* (0.66-1.25) mg/dL Assessment and Plan Plan: Assessment: #1. Chronic kidney disease stage V. Patient refuses any form of renal replacement therapy. #2. Fluid overload. Improved. #3. Hypertension with chronic kidney disease. #4. Chronic kidney disease mineral bone disease. #5. Anemia of chronic kidney disease. Iron deficiency present. Plan: Continue with Lasix 80 mg IV twice daily while in the hospital. Continue with IV iron. First dose today. Maintain Aranesp. Continue PhosLo with meals. Will transition to oral Lasix upon discharge.
--- NOTE | 2016-08-12 19:44 | PN ---
Patient is admitted secondary to pulmonary edema and acute hypoxic respiratory failure secondary to that which is again secondary to diastolic dysfunction and heart failure along with poor kidney function and the patient has CKD Stage 5 and patient is not on hemodialysis and operations support coordinator is following the patient. The patient is on high dose of Lasix. The patient is to taper his oxygen down to the zero. Patient does not use any oxygen at home. When we are able to get rid of the oxygen, patient will be discharged on oral Lasix. REVIEW OF SYSTEMS: CARDIOVASCULAR: No chest pain, no orthopnea, no PND, no palpitations. PULMONARY: Denied any shortness of breath. No cough or hemoptysis. GASTROINTESTINAL: No diarrhea, nausea or vomiting. No abdominal pain. Normoactive bowel sounds. NEUROLOGIC: No headaches, no weakness, no numbness. Medications were reviewed. PHYSICAL EXAMINATION: VITAL SIGNS: Temperature 97.0, pulse of ( ), respiratory rate 20, blood pressure 141/62, saturating at 92% on room air. GENERAL: Morbidly obese, alert and oriented x3. HEENT: Pupils are round and equally reacting to light. EOMI. No scleral icterus. No conjunctival pallor. Normocephalic, atraumatic. No pharyngeal erythema. No thyromegaly. CARDIOVASCULAR: S1 and S2 present. No murmurs, rubs, or gallops. PULMONARY: Chest is clear to auscultation, no wheezing or crackles. ABDOMEN: Soft, nontender, nondistended, normoactive bowel sounds. No palpable organomegaly. MUSCULOSKELETAL: No joint swelling or deformity. EXTREMITIES: No cyanosis, clubbing, or pedal edema. NEUROLOGICAL: Gross neurological examination did not reveal any focal deficits. SKIN: No rashes. LABORATORY DATA: CBC, CMP, and basic metabolic profile showed fairly stable BUN and creatinine. ASSESSMENT AND PLAN: 1. Acute hypoxic respiratory failure secondary to pulmonary edema, which is again secondary to chronic diastolic dysfunction along with Stage 5 kidney disease. Continue with IV Lasix. 2. Chronic kidney disease Stage 5, further management per nephrology. 3. ( ) secondary to uremia for which patient is receiving oral bicarbonate. 4. Hyperkalemia, resolved at this point of time secondary to chronic kidney disease, resolved with 5. IV Lasix. 6. Type 2 diabetes mellitus. Diet controlled. 7. Hypertension and hypertensive nephrosclerosis. 8. Hypothyroidism. The patient ( ) continues with IV Lasix, I's and O's, monitor kidney function and taper the oxygen down to 0 and patient possibly can be discharged if we are able to get rid of his oxygen. His oxygen requirements go down.
[2016-08-12] MEDS: ALLOPURINOL 100 MG TAB PO SCH (21:44)
[2016-08-12] MEDS: FERROUS SULFATE 325 MG TAB PO SCH (21:45)
[2016-08-13] MEDS: CALCIUM ACETATE 667 MG CAP PO SCH ×3 (06:42→17:43)
[2016-08-13] MEDS: CARVEDILOL 12.5 MG TAB PO SCH ×2 (06:42→17:43)
[2016-08-13 07:06] LABS: Calcium 8.8 mg/dL (8.4-10.2); Potassium 4.8 mmol/L (3.5-5.1)
[2016-08-13] MEDS: NITROGLYCERIN OINT 1 INCH/GM PACKET TOPICAL SCH ×4 (08:08→21:51)
[2016-08-13] MEDS: ASPIRIN 325 MG TAB PO SCH (08:08)
[2016-08-13] MEDS: FUROSEMIDE 10 MG/ML 10 ML VIAL IV SCH ×2 (08:08→16:24)
[2016-08-13] MEDS: SODIUM FERRIC GLUCONAT-SUCROSE 125 MG in SODIUM CHLORIDE 0.9% 100 ML IVPB SCH (08:08)
[2016-08-13] MEDS: THYROID, PORK 30 MG TAB PO SCH (08:08)
[2016-08-13] MEDS: ENOXAPARIN 30 MG/0.3 ML SYRINGE SQ SCH (08:09)
[2016-08-13] MEDS: PRAZOSIN 1 MG CAP PO SCH ×2 (08:09→21:13)
--- NOTE | 2016-08-13 08:42 | P.PN ---
Subjective Patient is seen in follow-up for chronic kidney disease stage V. Patient has consistently refused any form of renal replacement therapy. He presented with dyspnea and fluid overload. Overall improved. He's been diuresing well. No vomiting or diarrhea. Appetite is good. He is eager to be discharged. Vital signs are stable. General: The patient appeared well nourished and normally developed. HEENT: Head exam is unremarkable. Neck is without jugular venous distension. LUNGS: Lungs are clear to auscultation and percussion. Breath sounds decreased. HEART: Rate and Rhythm are regular. First and second heart sounds normal. No murmurs, rubs or gallops. ABDOMEN: Abdominal exam reveals normal bowel sounds. Non-tender and non- distended. No evidence of peritonitis. EXTREMITITES: Trace edema in right lower extremity. Left BKA noted. No obvious drainage. Objective - Vital Signs Vital signs: Vital Signs Temp 97.1 F L 08/13/16 04:00 Pulse 62 08/13/16 04:00 Resp 18 08/13/16 04:00 BP 152/73 08/13/16 04:00 Pulse Ox 97 08/13/16 04:00 Intake & Output 08/12/16 08/13/16 08/13/16 18:59 06:59 18:59 Intake Total 380 840 Output Total 1525 1450 Balance -1145 -610 Weight 175.5 kg Intake: IV 20 0.9% NS FLUSH 20 Oral 380 820 Output: Urine 1525 1450 Other: Voiding Method Urinal Urinal # Voids 0 1 # Bowel Movements 1 - Labs CBC & Chem 7: 08/11/16 05:40 08/13/16 06:10 Labs: Abnormal Lab Results - Last 24 Hours (Table) 08/13/16 Range/Units 06:10 Carbon Dioxide 21 L (22-30) mmol/L BUN 106 H* (9-20) mg/dL Creatinine 5.86 H* (0.66-1.25) mg/dL Glucose 100 H (74-99) mg/dL Assessment and Plan Plan: Assessment: #1. Chronic kidney disease stage V. Patient refuses any form of renal replacement therapy. #2. Fluid overload. Improved. #3. Hypertension with chronic kidney disease. #4. Chronic kidney disease mineral bone disease. #5. Anemia of chronic kidney disease. Iron deficiency present. Plan: Continue with Lasix 80 mg IV twice daily while in the hospital. Continue with IV iron. Second dose today. Maintain Aranesp. Continue PhosLo with meals. Will transition to oral Lasix upon discharge.
--- NOTE | 2016-08-13 12:43 | CDI ---
In responding to this query, please exercise your independent professional judgment. The [facility] Coding Staff and Clinical Documentation Specialists appreciate your assistance in clarifying documentation, maintaining compliance with coding guidelines, accurately documenting patients condition and capturing severity of illness. The fact that a question is asked does not imply that any particular answer is desired or expected. Communication forms are a method of clarifying documentation and are not made part of the Legal Health Record. Thank you in advance for your clarification. Last Revision, August 2015 Jasmeet An [address] [place] [address] Documentation Clarification Form Date: 08/13/2016 12:30:00 PM From: Natalie Melo RN, CCDS Admit Date: 08/09/2016 3:26:00 PM Patient Name: Isaiah Swartz Visit Number: [id number] Dr. Eduardo Jaquez Pulmonary edema, fluid overload, Diastolic dysfunction, and heart failure are all documented in progress notes. Please provide a definitive diagnosis to reflect the condition being treated. History/Risk Factors: Pt is refusing hemodialysis, CHF, CKD stage 5, HTN, DM< Clinical Indicators: 08/12 Attending Progress Note: " admitted secondary to pulmonary edema and acute hypoxic respiratory failure secondary to that which is again secondary to diastolic dysfunction and heart failure along with poor kidney function and the patient has CKD Stage 5 and patient is not on hemodialysis." VS/Pulse OX: temp 96.8, hr 54, RR 24, B/P 128/62, spo2 90% 4l NC BNP: 22,700 07/05/16 Echocardiogram Results: EF 55-60% Chest X Ray: correlate for CHF vs. pneumonia Treatment: O2: 2-6L Lasix 80 mg IVP BID Consults: Nephro In your professional opinion, can you please clarify the acuity and type of CHF if known? Acute Chronic Acute on Chronic AND Systolic Diastolic Systolic and Diastolic Cor Pulmonale (Right Sided HF w/ Pulmonary HTN) Unable to determine Other, please specify If known, please specify if Heart Failure is due to: Hypertension Rheumatic Fever Please document in your progress notes and discharge summary in order to capture severity of illness and risk of mortality. Include clinical findings that support your diagnosis. FYI: Press F11 to launch patient chart. Place X here if this finding has no clinical significance, is not applicable or if you are not able to provide any additional documentation. MTDD
--- NOTE | 2016-08-13 15:48 | DS ---
DATE OF ADMISSION: 08/09/2016 DATE OF DISCHARGE: 08/13/2016 FINAL DIAGNOSES: 1. Acute hypoxic respiratory failure secondary to pulmonary edema which is secondary to acute on chronic diastolic congestive heart failure along with stage V kidney disease. 2. Chronic kidney disease, stage V, secondary to nephrosclerosis. 3. Hyperkalemia secondary to chronic kidney disease. 4. Diabetes mellitus, type 2, diet-controlled. 5. Hypertension secondary to chronic kidney disease. 6. Hypothyroidism. 7. Hyperuricemia. 8. Morbid obesity with body mass index of 42.5. 9. Acute on chronic congestive heart failure exacerbation from diastolic dysfunction; ejection fraction 55% to 60%, from hypertensive heart disease. HOSPITAL COURSE: This is an extremely pleasant gentleman who unfortunately has end-stage kidney disease ( ) dialysis, presented with fluid overload, was given IV Lasix, to which he diuresed well. He was making urine. Relatively stabilized. Patient's BUN and creatinine are 106 and 5.86. Patient also had a recent left below-knee amputation for osteomyelitis. Patient's ejection fraction is 55% to 60%. CONSULTATION: Dr. Diallo. On examination, lungs have distant breath sounds. CARDIOVASCULAR: Heart sounds muffled. PSYCH: Alert and oriented x3. Care was discussed with Dr. Diallo on the phone and also with the patient. Discharge planning more than 35 minutes. DISCHARGE MEDICATIONS: 1. PhosLo 1 capsule p.o. t.i.d. 2. Alto Thyroid 60 mg p.o. daily. 3. Uloric 40 mg at bedtime. 4. Norvasc 5 mg p.o. at bedtime. 5. Coreg 25 mg b.i.d. 6. DuoNeb q.6 p.r.n. 7. Aranesp 60 mcg subcutaneously Tuesday. 8. Iron 325 p.o. at bedtime. 9. Prazosin 2 mg b.i.d. 10. Allopurinol 100 mg at bedtime. 11. Lasix 120 mg p.o. b.i.d. 12. Hydrochlorothiazide 25 mg b.i.d. 13. Ultram 50 mg p.o. q.6 p.r.n. DISPOSITION: [facility]. Follow up with Dr. Lentz on August 14, 2016. Follow up with Dr. Rankin in 10 days. Discharge planning more than 35 minutes.
[2016-08-13] MEDS: ALLOPURINOL 100 MG TAB PO SCH (21:13)
[2016-08-13] MEDS: FERROUS SULFATE 325 MG TAB PO SCH (21:13)
[2016-08-14 01:07] VITALS: RESP 19
[2016-08-14] MEDS: CALCIUM ACETATE 667 MG CAP PO SCH (06:30)
[2016-08-14] MEDS: CARVEDILOL 12.5 MG TAB PO SCH (06:30)
[2016-08-14 07:04] LABS: Calcium 8.8 mg/dL (8.4-10.2); Potassium 4.7 mmol/L (3.5-5.1)
[2016-08-14] MEDS: FUROSEMIDE 10 MG/ML 10 ML VIAL IV SCH (07:57)
[2016-08-14] MEDS: SODIUM FERRIC GLUCONAT-SUCROSE 125 MG in SODIUM CHLORIDE 0.9% 100 ML IVPB SCH (07:57)
[2016-08-14] MEDS: THYROID, PORK 30 MG TAB PO SCH (07:58)
[2016-08-14] MEDS: PRAZOSIN 1 MG CAP PO SCH (07:59)
[2016-08-14] MEDS: ASPIRIN 325 MG TAB PO SCH (07:59)
[2016-08-14] MEDS: NITROGLYCERIN OINT 1 INCH/GM PACKET TOPICAL SCH (07:59)
[2016-08-14] MEDS: ENOXAPARIN 30 MG/0.3 ML SYRINGE SQ SCH (08:09)
--- NOTE | 2016-08-14 08:33 | PN ---
Patient is seen for followup for CKD stage V. He was admitted to the hospital with CHF and fluid overload. He has been diuresed. Currently he states he is feeling okay. On examination, blood pressure was 173/82, heart rate 60 per minute. He is afebrile. EXAMINATION OF THE HEART: S1, S2. EXAMINATION OF THE LUNGS: Bilateral breath sounds are heard. Decreased breath sounds in bases with basal crackles heard. ABDOMEN: Soft, morbidly obese. Examination of lower extremities shows left BKA and trace edema noted in the right lower extremity. [employer] exam is grossly intact. Labs show an serum creatinine of 5.5. Sodium 143, potassium 4.7. ASSESSMENT: 1. Chronic kidney disease stage V with no plans for renal replacement therapy. 2. Congestive heart failure, fluid overload. Patient remains on IV Lasix twice a day, which we can continue. 3. Chronic kidney disease mineral bone disorder maintained on PhosLo. 4. Anemia with iron deficiency currently on IV iron and Aranesp. 5. Peripheral vascular disease, status post left below-knee amputation. PLAN: No further changes. Patient can be discharged on oral Lasix and a small dose of Zaroxolyn to maintain some degree of euvolemia.
[2016-08-14 09:30] VITALS: BP 169/79; PULSE 58; TEMP 98.3
== END 2016-08-14 10:05 | DRG 291 ==
LOC: EC 12:33 → 6SEL 15:26
PROVIDERS: ADMIT Hospitalist; ATTEND Hospitalist
DX: I13.2 Hypertensive heart and chronic kidney disease with heart failure and with stage 5 chronic kidney disease, or end stage renal disease (principal); I50.33 Acute on chronic diastolic (congestive) heart failure; J96.01 Acute respiratory failure with hypoxia; E87.2 Acidosis; N17.9 Acute kidney failure, unspecified; N18.5 Chronic kidney disease, stage 5; I27.2 Other secondary pulmonary hypertension; E66.01 Morbid (severe) obesity due to excess calories; E11.21 Type 2 diabetes mellitus with diabetic nephropathy; E87.8 Other disorders of electrolyte and fluid balance, not elsewhere classified; E03.9 Hypothyroidism, unspecified; D50.9 Iron deficiency anemia, unspecified; D63.1 Anemia in chronic kidney disease; E11.22 Type 2 diabetes mellitus with diabetic chronic kidney disease; E87.5 Hyperkalemia; I73.9 Peripheral vascular disease, unspecified; M89.9 Disorder of bone, unspecified; E79.0 Hyperuricemia without signs of inflammatory arthritis and tophaceous disease; Z68.41 Body mass index [BMI] 40.0-44.9, adult; Z79.899 Other long term (current) drug therapy; Z89.512 Acquired absence of left leg below knee; Z86.14 Personal history of Methicillin resistant Staphylococcus aureus infection
CPT/HCPCS: 36415; 71020; 80048; 80053; 82550; 82553; 82607; 83540; 83550; 83735; 83880; 84132; 84484; 85025; 85027; 85379; 85610; 85730; 87040; 93005; 94640; 94760; 96372; 96374; 96375; 99291